=== PATIENT | female | born 1945 | race Caucasian/White ===

== ENCOUNTER → 2018-09-24 | Outpatient (CLI) | payer MEDICARE, OTHER ==
--- NOTE | 2018-09-24 15:52 | XR ---
Bilateral shoulders HISTORY: Bilateral shoulder pain 2 views of each shoulder submitted on a total of 4 images Correlation to prior right shoulder dated 07/11/2011. Bone mineralization, joint spaces and alignment are normal. Small ossific density present in the righ t axilla is indeterminate, could represent lymph node calcification. Lung apices are unremarkable. IMPRESSION: Normal shoulders, additional findings above.
== END | disposition home or self-care (01) ==
LOC: RADXRYALE 13:08
PROVIDERS: ATTEND Family Medicine
DX: M25.511 Pain in right shoulder (principal); M25.512 Pain in left shoulder

== ENCOUNTER → 2018-12-20 | Outpatient (CLI) | payer MEDICARE, OTHER ==
[2018-12-20 14:56] LABS: Anisocytosis Slight; Basophils % (A) 0 %; Eosinophils # (A) 0.2 k/uL (0-0.7); Eosinophils % (A) 2 %; HCT 37.9 % (34.0-46.0); HGB 11.9 gm/dL (11.4-16.0); Hypochromasia Slight; Lymphocytes # (A) 1.6 k/uL (1.0-4.8); Lymphocytes % (A) 23 %; MCH 26.4 pg (25.0-35.0); MCHC 31.5 g/dL (31.0-37.0); Mean Platelet Volume 8.4; Monocytes # (A) 0.4 k/uL (0-1.0); Monocytes % (A) 6 %; Neutrophils # (A) 4.8 k/uL (1.3-7.7); Neutrophils % (A) 66 %; Platelet Count 314 k/uL (150-450); RBC 4.51 m/uL (3.80-5.40); RDW 18.1 % (11.5-15.5); WBC 7.3 k/uL (3.8-10.6)
[2018-12-20 21:01] LABS: Erythrocyte Sedimentation Rate 48 mm/hr (0-20)
== END ==
LOC: LABWHC1 14:08
PROVIDERS: ATTEND Physical Medicine & Rehabilitation
DX: M54.2 Cervicalgia (principal); M47.812 Spondylosis without myelopathy or radiculopathy, cervical region; M50.121 Cervical disc disorder at C4-C5 level with radiculopathy; M50.122 Cervical disc disorder at C5-C6 level with radiculopathy; M50.123 Cervical disc disorder at C6-C7 level with radiculopathy; M25.511 Pain in right shoulder; M25.512 Pain in left shoulder; R20.2 Paresthesia of skin; M35.3 Polymyalgia rheumatica
CPT/HCPCS: 36415; 85025; 85652; 86140

== ENCOUNTER 2019-09-01 21:22 | Inpatient (IN) | payer MEDICARE, OTHER ==
[2019-09-01] MEDS ORDERED: SODIUM CHLORIDE 0.9% 1,000 ML IV STA ×2 (21:55→22:47)
[2019-09-01] MEDS ORDERED: MORPHINE SULFATE 4 MG/ML SYRINGE IV STA (21:55)
--- NOTE | 2019-09-01 22:04 | ED ---
Recheck HPI - General Chief Complaint: Recheck/Abnormal Lab/Rx Stated Complaint: UTI, Confused Time Seen by Provider: 09/01/19 21:43 Source: patient Mode of arrival: wheelchair Limitations: no limitations - History of Present Illness MD Complaint: abnormal lab (UTI), needs IV antibiotics -: days(s) Returns Today for: needs IV antibiotics, persistent/worsening pain related to initial visit, other (fall, weakness, head injury) Symptoms Since Prior Visit: no new symptoms, worsening pain Context: other (weakness) Associated Symptoms: fever, malaise, nausea Treatments Prior to Arrival: other medications, Given Antibiotics on - Related Data Home Medications Medication Instructions Recorded Confirmed Acetaminophen [Tylenol Extra 1,000 mg PO BID PRN 09/01/19 09/01/19 Strength] Acetaminophen/Diphenhydramine 1 tab PO HS 09/01/19 09/01/19 [Tylenol Pm Ex-Strength Caplet] Aspirin EC [Ecotrin Low Dose] 81 mg PO DAILY 09/01/19 09/01/19 Atenolol/Chlorthalidone 1 tab PO DAILY 09/01/19 09/01/19 [Atenolol-Chlorthalidone 100-25] Calcium Carbonate [Tums] 1,000 mg PO DAILY 09/01/19 09/01/19 Celecoxib [CeleBREX] 100 mg PO DAILY 09/01/19 09/01/19 Cholecalciferol [Vitamin D3 (25 1,000 unit PO DAILY 09/01/19 09/01/19 Mcg = 1000 Iu)] Ciprofloxacin HCl [Cipro] 500 mg PO Q12HR 09/01/19 09/01/19 Ferrous Sulfate [Slow Release Iron] 140 mg PO DAILY 09/01/19 09/01/19 Glucosam/Seng-Msm1/C/Garrett/Bosw 1 tab PO DAILY 09/01/19 09/01/19 [Mztvkdzpdge-Bvszxhpdati-MRE Tb] Krill Oil 1,200mg 1 cap PO DAILY 09/01/19 09/01/19 Lactobacillus Acidophilus 1 tab PO DAILY 09/01/19 09/01/19 [Acidophilus] Loratadine [Claritin] 10 mg PO DAILY 09/01/19 09/01/19 Multivitamins, Thera [Multivitamin 1 tab PO DAILY 09/01/19 09/01/19 (formulary)] Nystatin 100,000 Unit/ml Susp 5 ml PO QID 09/01/19 09/01/19 [Mycostatin Oral Susp] Omeprazole 20 mg PO DAILY 09/01/19 09/01/19 Pravastatin Sodium [Pravachol] 20 mg PO HS 09/01/19 09/01/19 Ubidecarenone [Co Q-10] 100 mg PO DAILY 09/01/19 09/01/19 Allergies Allergy/AdvReac Type Severity Reaction Status Date / Time erythromycin base Allergy Unknown Verified 09/01/19 22:02 Penicillins Allergy Unknown Verified 09/01/19 22:02 Review of Systems ROS Statement: Those systems with pertinent positive or pertinent negative responses have been documented in the HPI. ROS Other: All systems not noted in ROS Statement are negative. Past Medical History Past Medical History: Hyperlipidemia, Hypertension History of Any Multi-Drug Resistant Organisms: None Reported Past Surgical History: Tubal Ligation Additional Past Surgical History / Comment(s): carpel tunnel Past Psychological History: No Psychological Hx Reported Smoking Status: Never smoker Past Alcohol Use History: None Reported Past Drug Use History: None Reported General Exam Limitations: no limitations General appearance: alert, in no apparent distress Head exam: Present: atraumatic, normocephalic, normal inspection Eye exam: Present: normal appearance, PERRL, EOMI. Absent: scleral icterus, conjunctival injection, periorbital swelling ENT exam: Present: normal exam, mucous membranes moist Neck exam: Present: normal inspection. Absent: tenderness, meningismus, lymphadenopathy Respiratory exam: Present: normal lung sounds bilaterally. Absent: respiratory distress, wheezes, rales, rhonchi, stridor Cardiovascular Exam: Present: regular rate, normal rhythm, normal heart sounds. Absent: systolic murmur, diastolic murmur, rubs, gallop, clicks GI/Abdominal exam: Present: soft, normal bowel sounds. Absent: distended, tenderness, guarding, rebound, rigid Extremities exam: Present: normal inspection, full ROM, normal capillary refill. Absent: tenderness, pedal edema, joint swelling, calf tenderness Back exam: Present: normal inspection Neurological exam: Present: alert, oriented X3, CN II-XII intact Psychiatric exam: Present: normal affect, normal mood Skin exam: Present: warm, dry, intact, normal color. Absent: rash Course Vital Signs 09/01/19 09/01/19 09/01/19 21:35 22:00 22:18 Temperature 100.0 F H 99.7 F H Pulse Rate 72 70 63 Respiratory 18 19 15 Rate Blood Pressure 79/48 84/46 88/61 O2 Sat by Pulse 96 94 L 95 Oximetry 09/01/19 09/01/19 22:33 23:00 Temperature Pulse Rate 66 Respiratory 20 Rate Blood Pressure 97/57 98/49 O2 Sat by Pulse 96 Oximetry - Reevaluation(s) Reevaluation #1: 09/01/19 23:24 records reviewed Reevaluation #2: 09/01/19 23:24 she feels improved with hydration here in the ER blood pressure still marginally low - Consultations Consultation #1: spoke with Dr. Sage and he MH was agreeable to admit Procedures - Sepsis Sepsis Focused Exam #1 Time Sepsis Criteria Met: 23:00 Sepsis Focused Exam Date: 09/02/19 Sepsis Focused Exam Time: 02:00 Sepsis Focused Exam Complete: Yes Vital Signs & RN Notes Reviewed: Yes Capillary Refill: < 2 Seconds: Fingers, Toes Peripheral Pulses: Normal: Radial (R), Radial (L), Posterior Tibialis (R), Posterior Tibialis (L), Dorsalis Pedis (R), Dorsalis Pedis (L) Skin Color: Normal for Patient Respiratory Exam: normal lung sounds Cardiovascular Exam: regular rate, normal rhythm Medical Decision Making - Medical Decision Making 73 for female in the ER for evaluation of possible pericarditis positive severe sepsis, patient will be admitted for antibiotics patient given 30 mL's per kilogram s. Patient will be admitted for continued hydration and IV antibiotics - Lab Data Result diagrams: 09/01/19 22:17 09/01/19 22:17 Lab Results 09/01/19 09/01/19 09/01/19 Range/Units 22:17 22:17 22:17 WBC 21.3 H (3.8-10.6) k/uL RBC 3.80 (3.80-5.40) m/uL Hgb 11.4 (11.4-16.0) gm/dL Hct 32.7 L (34.0-46.0) % MCV 85.8 (80.0-100.0) fL MCH 30.0 (25.0-35.0) pg MCHC 35.0 (31.0-37.0) g/dL RDW 12.9 (11.5-15.5) % Plt Count 216 (150-450) k/uL Neutrophils % 92 % Lymphocytes % 2 % Monocytes % 4 % Eosinophils % 0 % Basophils % 0 % Neutrophils # 19.6 H (1.3-7.7) k/uL Lymphocytes # 0.5 L (1.0-4.8) k/uL Monocytes # 0.8 (0-1.0) k/uL Eosinophils # 0.1 (0-0.7) k/uL Basophils # 0.0 (0-0.2) k/uL Sodium 126 L (137-145) mmol/L Potassium 2.6 L* (3.5-5.1) mmol/L Chloride 90 L (98-107) mmol/L Carbon Dioxide 22 (22-30) mmol/L Anion Gap 14 mmol/L BUN 102 H* (7-17) mg/dL Creatinine 3.48 H (0.52-1.04) mg/dL Est GFR (CKD-EPI)AfAm 14 (>60 ml/min/1.73 sqM) Est GFR (CKD-EPI)NonAf 12 (>60 ml/min/1.73 sqM) Glucose 170 H (74-99) mg/dL Calcium 7.8 L (8.4-10.2) mg/dL Total Bilirubin 1.3 (0.2-1.3) mg/dL AST 61 H (14-36) U/L ALT 35 H (4-34) U/L Alkaline Phosphatase 154 H (38-126) U/L Creatine Kinase 96 (30-135) U/L Total Protein 5.5 L (6.3-8.2) g/dL Albumin 2.8 L (3.5-5.0) g/dL Amylase 34 (30-110) U/L Lipase 110 (23-300) U/L Urine Color Yellow Urine Appearance Cloudy H (Clear) Urine pH 5.5 (5.0-8.0) Ur Specific [place] 1.010 (1.001-1.035) Urine Protein 2+ H (Negative) Urine Glucose (UA) Negative (Negative) Urine Ketones Negative (Negative) Urine Blood Small H (Negative) Urine Nitrite Negative (Negative) Urine Bilirubin Negative (Negative) Urine Urobilinogen <2.0 (<2.0) mg/dL Ur Leukocyte Esterase Large H (Negative) Urine RBC 7 H (0-5) /hpf Urine WBC >182 H (0-5) /hpf Urine WBC Clumps Many H (None) /hpf Ur Squamous Epith Cells 6 H (0-4) /hpf Urine Bacteria Occasional H (None) /hpf Urine Mucus Rare H (None) /hpf - Radiology Data Radiology results: report reviewed (CT abd pelvis positive for bilateral pyelo- ), image reviewed Critical Care Time Critical Care Time: Yes Total Critical Care Time: 31 Disposition Clinical Impression: Pyelonephritis, Sepsis Disposition: ADMITTED IP TO THIS HOSP Condition: Serious Is patient prescribed a controlled substance at d/c from ED?: No Referrals: Philip Richardson DO [Primary Care Provider] - 1-2 days
[2019-09-01 22:31] LABS: Basophils % (A) 0 %; Eosinophils # (A) 0.1 k/uL (0-0.7); Eosinophils % (A) 0 %; HCT 32.7 % (34.0-46.0); HGB 11.4 gm/dL (11.4-16.0); Lymphocytes # (A) 0.5 k/uL (1.0-4.8); Lymphocytes % (A) 2 %; MCV 85.8 fL (80.0-100.0); Mean Platelet Volume 10.7; Monocytes # (A) 0.8 k/uL (0-1.0); Monocytes % (A) 4 %; Neutrophils # (A) 19.6 k/uL (1.3-7.7); Neutrophils % (A) 92 %; Platelet Count 216 k/uL (150-450); RDW 12.9 % (11.5-15.5); WBC 21.3 k/uL (3.8-10.6)
[2019-09-01 22:35] LABS: Appearance,Urine Cloudy (Clear); Bacteria,Urine Occasional /hpf; Bilirubin,Urine Negative (Negative); Blood,Urine Small (Negative); Color,Urine Yellow; Glucose,Urine (UA) Negative (Negative); Ketones,Urine Negative (Negative); Leukocyte Esterase,Urine Large (Negative); Mucus,Urine Rare /hpf; Nitrite,Urine Negative (Negative); PH, Urine 5.5 (5.0-8.0); Protein,Urine 2+ (Negative); RBC,Urine 7 /hpf (0-5); Squamous Epithelial Cell,Urine 6 /hpf (0-4); Urobilinogen,Urine <2.0 mg/dL (<2.0); WBC,Urine >182 /hpf (0-5)
[2019-09-01 22:39] LABS: Albumin 2.8 g/dL (3.5-5.0); Calcium 7.8 mg/dL (8.4-10.2); Total Bilirubin 1.3 mg/dL (0.2-1.3); Total Protein 5.5 g/dL (6.3-8.2)
[2019-09-01 22:46] LABS: Potassium 2.6 mmol/L (3.5-5.1)
[2019-09-01] MEDS ORDERED: POTASSIUM BICARBONATE/CIT AC 20 MEQ TABLET.EFF PO ONE (22:48)
--- NOTE | 2019-09-01 23:01 | CT ---
EXAMINATION TYPE: CT brain miaine wo con DATE OF EXAM: 09/01/2019 COMPARISON: None HISTORY: confused CT DLP: 1008 mGycm Automated exposure control for dose reduction was used. Ventricles have normal size. There is no mass effect nor midline shift. There is no sign of intracran ial hemorrhage. The calvarium is intact. Cervical vertebra have normal alignment. Disc spaces are fairly normal for age. There is spurring of the endplates in the lower cervical spine. Facet joints are intact. Skull base is intact. There is mi ld hypertrophic facet arthropathy. There is no evidence of a fracture. IMPRESSION: Mild spondylotic changes. No fracture seen. Negative CT scan of the brain.
--- NOTE | 2019-09-01 23:09 | CT ---
EXAMINATION TYPE: CT abdomen pelvis wo con DATE OF EXAM: 09/01/2019 COMPARISON: None HISTORY: UTI CT DLP: 331 mGycm Automated exposure control for dose reduction was used. Exam performed with no contrast. There is minimal subsegmental atelectasis at the lung bases. Heart is probably enlarged. There is no pericardial effusion. There is no pleural effusion. Liver and spleen appear normal. Gallbladder appears normal. Bile ducts are not dilated. Stomach is in tact. There is no evidence of pancreatic mass. There is no adrenal mass. Kidneys appear large. There is 2.5 cm cortical cyst lower pole left kidney. I see no definite renal o bstruction. There is some mild fat stranding at the left renal hilum. There is mild bilateral fat str anding in the perirenal fat. There is no retroperitoneal adenopathy. Bladder distends smoothly. There is no inguinal hernia. There is no free fluid in the pelvis. There is 1.5 cm calcified uterine fibroid. There is no mesenteric edema. There is no ascites or free air. There is no sign of a bowel obstructio n. Appendix is not definitely seen. There is no sign of thickened appendix. There are some spondyloti c changes in the lumbar spine. There is narrowing of L2-3 L3-4 disc spaces. There is no compression f racture. The bony pelvis is intact. IMPRESSION: There is some mild atelectasis at the lung bases. there appears to be bilateral renal swelling and mi ld edema that could relate to bilateral acute pyelonephritis. No evidence of renal or ureteral calcul us.
[2019-09-02] MEDS: SODIUM CHLORIDE 0.9% 1,000 ML IV SCH ×4 (00:58→23:44)
[2019-09-02 08:44] LABS: Basophils # (A) 0.1 k/uL (0-0.2); Basophils % (A) 0 %; Eosinophils # (A) 0.1 k/uL (0-0.7); Eosinophils % (A) 0 %; HCT 36.1 % (34.0-46.0); HGB 12.1 gm/dL (11.4-16.0); Lymphocytes # (A) 0.4 k/uL (1.0-4.8); Lymphocytes % (A) 2 %; MCH 29.6 pg (25.0-35.0); MCHC 33.4 g/dL (31.0-37.0); MCV 88.6 fL (80.0-100.0); Mean Platelet Volume 10.1; Monocytes # (A) 0.8 k/uL (0-1.0); Monocytes % (A) 3 %; Neutrophils # (A) 22.1 k/uL (1.3-7.7); Neutrophils % (A) 93 %; Platelet Count 232 k/uL (150-450); RBC 4.08 m/uL (3.80-5.40); RDW 12.7 % (11.5-15.5); WBC 23.8 k/uL (3.8-10.6)
[2019-09-02 08:53] LABS: Albumin 2.6 g/dL (3.5-5.0); Potassium 2.9 mmol/L (3.5-5.1); Total Protein 5.4 g/dL (6.3-8.2)
[2019-09-02] MEDS ORDERED: ENOXAPARIN 40 MG/0.4 ML SYRINGE SQ SCH (09:00)
[2019-09-02] MEDS ORDERED: Potassium Replacement Protocol 1 EACH MISC MISCELLANE PRN (09:05)
[2019-09-02] MEDS: POTASSIUM CHLORIDE 20 MEQ in WATER FOR INJECTION 1 100ML.BAG IVPB SCH ×3 (09:44→18:16)
[2019-09-02] MEDS: POTASSIUM CHLORIDE ER 20 MEQ TAB.ER PO SCH ×3 (09:44→18:14)
--- NOTE | 2019-09-02 15:00 | US ---
EXAMINATION TYPE: US renals and bladder DATE OF EXAM: 09/02/2019 COMPARISON: CT CLINICAL HISTORY: pyelonephritis with renal failure. UTI EXAM MEASUREMENTS: Right Kidney: 11.3 x 7.3 x 6.7 cm Left Kidney: 11.6 x 6.5 x 6.2 cm Post Void Residual Volume: 222.2 mL Right Kidney: thickened renal cortex suggests pyelonephritis Left Kidney: thickened renal cortex suggests pyelonephritis; inferior pole renal cyst cluster = 2.7 x 2.1 x 2.5cm. Bladder: post void assessment shows thickened bladder wall at 4.7mm Bilateral Jets seen: yes, small ureteral jets are seen bilaterally Normal Post Void Residual: abnormal . No nephrolithiasis is seen. The urinary bladder is anechoic. Bilateral ureteral jets are seen. IMPRESSION: Bilateral enlarged kidneys. No hydronephrosis. There is a 2.5 cm cortical cyst lower pole left kidney . Large post void residual volume. There are bilateral ureteral jets and no evidence of ureteral obst ruction. No solid renal mass.
--- NOTE | 2019-09-02 16:28 | P.HPIM ---
History of Present Illness Patient is a 73-year-old the female is admitted for urinary tract infection patient came in with complaints of fever and chills started Sunday patient had flulike symptoms about a week ago. Patient to had urinary frequency denied any dysuria. Patient didn't have fever here does have leukocytosis does have significantly abnormal urine no other source of infection was found. Patient had a CAT scan of the abdomen which is suspicious for bilateral hydronephrosis but this was not seen on the ultrasound. As the nursing staff to obtain a bladder scan and there is only 250 mL of urine in the bladder. I do not see any urinary retention. Patient the serum creatinine is 3.5 patient is on some medications that can affect the kidney patient is being and creatinine ratio is consistent with prerenal azotemia patient is on diuretic as well as Celebrex which can affect the kidney. Probably will be consulted patient is on IV fluids which will be continued will recheck the kidney function tomorrow patient is hyponatremic severely hyponatremic with hypovolemic hyponatremia. Initially wanted to consult urology but that since ultrasound didn't show anything may not need urological consultation will consult nephrology. Patient was started on Rocephin which will be continued. Patient had previous episodes of UTI but doesn't have UTIs that often. Patient at this point of time is feeling better with but still below her baseline patient had mildly elevated liver enzymes which improved now. Had fevers at home but not here. Patient actually came in with syncopal episode found to have very low blood pressure. Review of Systems REVIEW OF SYSTEMS: CONSTITUTIONAL: As mentioned in HPI. HEENT: No recent visual problems or hearing problems. Denied any sore throat. CARDIOVASCULAR: No chest pain, orthopnea, PND, no palpitations, no syncope. PULMONARY: No shortness of breath, no cough, no hemoptysis. GASTROINTESTINAL: No diarrhea, no nausea, no vomiting, no abdominal pain. NEUROLOGICAL: No headaches, no weakness, no numbness. HEMATOLOGICAL: Denies any bleeding or petechiae. GENITOURINARY: Denies any burning micturition, frequency, or urgency. MUSCULOSKELETAL/RHEUMATOLOGICAL: Denies any joint pain, swelling, or any muscle pain. ENDOCRINE: Denies any polyuria or polydipsia. The rest of the 14-point review of systems is negative. Past Medical History Past Medical History: Hyperlipidemia, Hypertension History of Any Multi-Drug Resistant Organisms: None Reported Past Surgical History: Tubal Ligation Additional Past Surgical History / Comment(s): carpel tunnel Past Psychological History: No Psychological Hx Reported Smoking Status: Never smoker Past Alcohol Use History: None Reported Past Drug Use History: None Reported Medications and Allergies Home Medications Medication Instructions Recorded Confirmed Type Acetaminophen [Tylenol Extra 1,000 mg PO BID PRN 09/01/19 09/01/19 History Strength] Acetaminophen/Diphenhydramine 1 tab PO HS 09/01/19 09/01/19 History [Tylenol Pm Ex-Strength Caplet] Aspirin EC [Ecotrin Low Dose] 81 mg PO DAILY 09/01/19 09/01/19 History Atenolol/Chlorthalidone 1 tab PO DAILY 09/01/19 09/01/19 History [Atenolol-Chlorthalidone 100-25] Calcium Carbonate [Tums] 1,000 mg PO DAILY 09/01/19 09/01/19 History Celecoxib [CeleBREX] 100 mg PO DAILY 09/01/19 09/01/19 History Cholecalciferol [Vitamin D3 (25 1,000 unit PO DAILY 09/01/19 09/01/19 History Mcg = 1000 Iu)] Ciprofloxacin HCl [Cipro] 500 mg PO Q12HR 09/01/19 09/01/19 History Ferrous Sulfate [Slow Release Iron] 140 mg PO DAILY 09/01/19 09/01/19 History Glucosam/Seng-Msm1/C/Garrett/Bosw 1 tab PO DAILY 09/01/19 09/01/19 History [Zktztyfoemk-Corjnjwsuqn-KDE Tb] Krill Oil 1,200mg 1 cap PO DAILY 09/01/19 09/01/19 History Lactobacillus Acidophilus 1 tab PO DAILY 09/01/19 09/01/19 History [Acidophilus] Loratadine [Claritin] 10 mg PO DAILY 09/01/19 09/01/19 History Multivitamins, Thera [Multivitamin 1 tab PO DAILY 09/01/19 09/01/19 History (formulary)] Nystatin 100,000 Unit/ml Susp 5 ml PO QID 09/01/19 09/01/19 History [Mycostatin Oral Susp] Omeprazole 20 mg PO DAILY 09/01/19 09/01/19 History Pravastatin Sodium [Pravachol] 20 mg PO HS 09/01/19 09/01/19 History Ubidecarenone [Co Q-10] 100 mg PO DAILY 09/01/19 09/01/19 History Allergies Allergy/AdvReac Type Severity Reaction Status Date / Time erythromycin base Allergy Unknown Verified 09/01/19 22:02 Penicillins Allergy Unknown Verified 09/01/19 22:02 Physical Exam Vitals: Vital Signs Temp Pulse Pulse Resp BP BP Pulse Ox 09/02/19 15:48 16 09/02/19 14:05 97.9 F 71 18 124/55 95 09/02/19 08:00 18 09/02/19 05:00 97.3 F L 69 18 116/72 95 09/02/19 02:07 97.6 F 66 20 97/59 94 L 09/02/19 00:24 97.8 F 69 18 106/54 98 09/01/19 23:00 66 20 98/49 96 09/01/19 22:33 97/57 09/01/19 22:18 63 15 88/61 95 09/01/19 22:00 99.7 F H 70 19 84/46 94 L 09/01/19 21:35 100.0 F H 72 18 79/48 96 Intake and Output 09/02/19 09/02/19 09/02/19 06:59 14:59 22:59 Intake Total 500 800 Balance 500 800 Intake: Oral 500 800 Other: # Voids 3 4 # Bowel Movements 2 Weight 68.039 kg PHYSICAL EXAMINATION: GENERAL: The patient is alert and oriented x3, not in any acute distress. Well developed, well nourished. HEENT: Pupils are round and equally reacting to light. EOMI. No scleral icterus. No conjunctival pallor. Normocephalic, atraumatic. No pharyngeal erythema. No thyromegaly. CARDIOVASCULAR: S1 and S2 present. No murmurs, rubs, or gallops. PULMONARY: Chest is clear to auscultation, no wheezing or crackles. ABDOMEN: Soft, nontender, nondistended, normoactive bowel sounds. No palpable organomegaly. MUSCULOSKELETAL: No joint swelling or deformity. EXTREMITIES: No cyanosis, clubbing, or pedal edema. NEUROLOGICAL: Gross neurological examination did not reveal any focal deficits. SKIN: No rashes. Results CBC & Chem 7: 09/02/19 08:30 09/02/19 08:30 Labs: Abnormal Lab Results - Last 24 Hours (Table) 09/01/19 09/01/19 09/01/19 Range/Units 22:17 22:17 22:17 WBC 21.3 H (3.8-10.6) k/uL Hct 32.7 L (34.0-46.0) % Neutrophils # 19.6 H (1.3-7.7) k/uL Lymphocytes # 0.5 L (1.0-4.8) k/uL Sodium 126 L (137-145) mmol/L Potassium 2.6 L* (3.5-5.1) mmol/L Chloride 90 L (98-107) mmol/L BUN 102 H* (7-17) mg/dL Creatinine 3.48 H (0.52-1.04) mg/dL Glucose 170 H (74-99) mg/dL Calcium 7.8 L (8.4-10.2) mg/dL AST 61 H (14-36) U/L ALT 35 H (4-34) U/L Alkaline Phosphatase 154 H (38-126) U/L Total Protein 5.5 L (6.3-8.2) g/dL Albumin 2.8 L (3.5-5.0) g/dL Urine Appearance Cloudy H (Clear) Urine Protein 2+ H (Negative) Urine Blood Small H (Negative) Ur Leukocyte Esterase Large H (Negative) Urine RBC 7 H (0-5) /hpf Urine WBC >182 H (0-5) /hpf Urine WBC Clumps Many H (None) /hpf Ur Squamous Epith Cells 6 H (0-4) /hpf Urine Bacteria Occasional H (None) /hpf Urine Mucus Rare H (None) /hpf 09/02/19 09/02/19 Range/Units 08:30 08:30 WBC 23.8 H (3.8-10.6) k/uL Hct (34.0-46.0) % Neutrophils # 22.1 H (1.3-7.7) k/uL Lymphocytes # 0.4 L (1.0-4.8) k/uL Sodium 133 L (137-145) mmol/L Potassium 2.9 L (3.5-5.1) mmol/L Chloride 97 L (98-107) mmol/L BUN 95 H (7-17) mg/dL Creatinine 3.27 H (0.52-1.04) mg/dL Glucose (74-99) mg/dL Calcium 7.0 L (8.4-10.2) mg/dL AST 42 H (14-36) U/L ALT (4-34) U/L Alkaline Phosphatase 133 H (38-126) U/L Total Protein 5.4 L (6.3-8.2) g/dL Albumin 2.6 L (3.5-5.0) g/dL Urine Appearance (Clear) Urine Protein (Negative) Urine Blood (Negative) Ur Leukocyte Esterase (Negative) Urine RBC (0-5) /hpf Urine WBC (0-5) /hpf Urine WBC Clumps (None) /hpf Ur Squamous Epith Cells (0-4) /hpf Urine Bacteria (None) /hpf Urine Mucus (None) /hpf Microbiology - Last 24 Hours (Table) 09/01/19 22:17 Urine Culture - Preliminary Urine,Clean Catch Thrombosis Risk Factor Assmnt - Choose All That Apply Any of the Below Risk Factors Present?: Yes Each Factor Represents 1 point: Obesity (BMI >25) Other Risk Factors: Yes Each Risk Factor Represents 2 Points: Age 61-74 years Thrombosis Risk Factor Assessment Total Risk Factor Score: 3 Thrombosis Risk Factor Assessment Level: Moderate Risk Assessment and Plan Plan: -Syncope secondary to hypotension which is again related to either severe hypovolemia and may be a competent of sepsis 2. Patient will be continued on IV fluids -possible urinary tract infection urine cultures will be obtained patient will be continued on Rocephin. Patient was told patient that she has bad urinary tract infection was already started on Cipro as an outpatient. -Acute renal failure secondary to severe intravascular patient from chlorthalidone and Cerebyx may be contributory to it as well, this will be held. -Hypertension patient is presently hypotensive hold off on atenolol and chlorthalidone -Gastroesophageal reflux disease -Hyperlipidemia -DVT prophylaxis with subcutaneous heparin and oxygen will be discontinued because of poor renal function
[2019-09-02] MEDS: NYSTATIN 100,000 UNIT/ML SUSP 500,000 UNIT/5 ML CUP PO SCH ×2 (18:14→21:06)
[2019-09-02] MEDS ORDERED: BENZOCAINE/MENTHOL LOZENG 1 EACH LOZENGE MUCOUS MEM PRN (20:50)
[2019-09-02] MEDS: PRAVASTATIN SODIUM 20 MG TAB PO SCH (21:06)
[2019-09-02 21:50] LABS: Magnesium 1.5 mg/dL (1.6-2.3); Potassium 4.2 mmol/L (3.5-5.1)
[2019-09-03] MEDS: SODIUM CHLORIDE 0.9% 1,000 ML IV SCH ×3 (05:33→23:16)
[2019-09-03] MEDS: ASPIRIN 81 MG PO SCH (07:58)
[2019-09-03] MEDS: HEPARIN SODIUM,PORCINE 5,000 UNIT/ML 1 ML VIAL SQ SCH ×3 (07:58→23:15)
[2019-09-03] MEDS: PANTOPRAZOLE 40 MG TABLET PO SCH (07:58)
[2019-09-03] MEDS: CHOLECALCIFEROL 1,000 UNIT TAB PO SCH (07:59)
[2019-09-03] MEDS: FERROUS SULFATE 325 MG TAB PO SCH (07:59)
[2019-09-03] MEDS ORDERED: ENOXAPARIN 30 MG/0.3 ML SYRINGE SQ SCH (09:00)
[2019-09-03 09:46] LABS: Calcium 7.7 mg/dL (8.4-10.2); Potassium 3.9 mmol/L (3.5-5.1)
[2019-09-03] MEDS: NYSTATIN 100,000 UNIT/ML SUSP 500,000 UNIT/5 ML CUP PO SCH ×4 (12:28→23:15)
--- NOTE | 2019-09-03 12:46 | P.GSCN ---
History of Present Illness Consult date: 09/03/19 Reason for Consult: Urinary obstruction with impaired renal function History of present illness: The patient is a 73-year-old female admitted through the emergency room on 09/01 for evaluation of acute renal failure and possible sepsis. She says that she was seen by Dr. Richardson on 08/31 and at that time was felt to have a urinary tract infection. She says she was given an IM antibiotic injection and a prescription for Cipro. She does not recall having any fever or dysuria at that time. Later that evening she fell and was taken to the emergency room for further evaluation. Her temperature was 100.0. White blood count was 21,300. BUN/creatinine were 102/3.48. Lactic acid was 1.3. Sodium was 126, potassium was 2.6 and bicarb was 22. She was started on antibiotics and IV fluids. BUN/creatinine yesterday morning were improved at 95/3.27. BUN/creatinine today are 81/2.84. The patient had a computed tomography scan of the abdomen and pelvis without IV contrast at the time of admission which showed some slight swelling of the kidneys but no definite hydronephrosis. There was no evidence of renal or ureteral calculus. Renal ultrasound was performed yesterday due to the persistent abnormal renal function and this also showed no evidence of hydronephrosis. Urine culture at the time of admission shows probable perineal contamination. The patient has no history of urolithiasis. She says that she recalls having a urinary tract infection approximately 6 months ago. She says she usually voids every 2-3 hours during the day and 3 times at night. She denied any nausea or vomiting prior to admission. Review of Systems - Constitutional Reports lethargy - Cardiovascular Denies chest pain, Denies shortness of breath - Respiratory Denies cough - Gastrointestinal Denies abdominal pain, Denies diarrhea Past Medical History Past Medical History: Hyperlipidemia, Hypertension History of Any Multi-Drug Resistant Organisms: None Reported Past Surgical History: Tubal Ligation Additional Past Surgical History / Comment(s): carpel tunnel, radiofrequency ablation of nerves- low back Past Psychological History: No Psychological Hx Reported Smoking Status: Never smoker Past Alcohol Use History: None Reported Past Drug Use History: None Reported Medications and Allergies Home Medications Medication Instructions Recorded Confirmed Type Acetaminophen [Tylenol Extra 1,000 mg PO BID PRN 09/01/19 09/01/19 History Strength] Acetaminophen/Diphenhydramine 1 tab PO HS 09/01/19 09/01/19 History [Tylenol Pm Ex-Strength Caplet] Aspirin EC [Ecotrin Low Dose] 81 mg PO DAILY 09/01/19 09/01/19 History Atenolol/Chlorthalidone 1 tab PO DAILY 09/01/19 09/01/19 History [Atenolol-Chlorthalidone 100-25] Calcium Carbonate [Tums] 1,000 mg PO DAILY 09/01/19 09/01/19 History Celecoxib [CeleBREX] 100 mg PO DAILY 09/01/19 09/01/19 History Cholecalciferol [Vitamin D3 (25 1,000 unit PO DAILY 09/01/19 09/01/19 History Mcg = 1000 Iu)] Ciprofloxacin HCl [Cipro] 500 mg PO Q12HR 09/01/19 09/01/19 History Ferrous Sulfate [Slow Release Iron] 140 mg PO DAILY 09/01/19 09/01/19 History Glucosam/Seng-Msm1/C/Garrett/Bosw 1 tab PO DAILY 09/01/19 09/01/19 History [Yzzhaqblsmz-Jlqftffgrjx-YIG Tb] Krill Oil 1,200mg 1 cap PO DAILY 09/01/19 09/01/19 History Lactobacillus Acidophilus 1 tab PO DAILY 09/01/19 09/01/19 History [Acidophilus] Loratadine [Claritin] 10 mg PO DAILY 09/01/19 09/01/19 History Multivitamins, Thera [Multivitamin 1 tab PO DAILY 09/01/19 09/01/19 History (formulary)] Nystatin 100,000 Unit/ml Susp 5 ml PO QID 09/01/19 09/01/19 History [Mycostatin Oral Susp] Omeprazole 20 mg PO DAILY 09/01/19 09/01/19 History Pravastatin Sodium [Pravachol] 20 mg PO HS 09/01/19 09/01/19 History Ubidecarenone [Co Q-10] 100 mg PO DAILY 09/01/19 09/01/19 History Allergies Allergy/AdvReac Type Severity Reaction Status Date / Time erythromycin base Allergy Unknown Verified 09/01/19 22:02 Penicillins Allergy Unknown Verified 09/01/19 22:02 Surgical - Exam Vital Signs Temp Pulse Resp BP Pulse Ox 100.0 F H 72 18 79/48 96 09/01/19 21:35 09/01/19 21:35 09/01/19 21:35 09/01/19 21:35 09/01/19 21:35 - General well developed, well nourished, no distress - ENT no hearing loss - Neck no masses, no lymphadectomy - Respiratory normal respiratory effort - Abdomen Abdomen: soft, non tender, no organomegaly Results - Labs 09/02/19 08:30 09/03/19 09:10 Abnormal Lab Results - Last 24 Hours (Table) 09/02/19 09/03/19 Range/Units 21:25 09:10 Chloride 108 H (98-107) mmol/L Carbon Dioxide 18 L (22-30) mmol/L BUN 81 H (7-17) mg/dL Creatinine 2.84 H (0.52-1.04) mg/dL Glucose 172 H (74-99) mg/dL Calcium 7.7 L (8.4-10.2) mg/dL Magnesium 1.5 L (1.6-2.3) mg/dL Microbiology - Last 24 Hours (Table) 09/01/19 22:17 Urine Culture - Final Urine,Clean Catch 09/01/19 23:42 Blood Culture - Preliminary Blood No Growth after 24 hours Diabetes panel 09/02/19 09/03/19 Range/Units 21:25 09:10 Sodium 138 (137-145) mmol/L Potassium 4.2 3.9 (3.5-5.1) mmol/L Chloride 108 H (98-107) mmol/L Carbon Dioxide 18 L (22-30) mmol/L BUN 81 H (7-17) mg/dL Creatinine 2.84 H (0.52-1.04) mg/dL Glucose 172 H (74-99) mg/dL Calcium 7.7 L (8.4-10.2) mg/dL Calcium panel 09/03/19 Range/Units 09:10 Calcium 7.7 L (8.4-10.2) mg/dL Pituitary panel 09/02/19 09/03/19 Range/Units 21:25 09:10 Sodium 138 (137-145) mmol/L Potassium 4.2 3.9 (3.5-5.1) mmol/L Chloride 108 H (98-107) mmol/L Carbon Dioxide 18 L (22-30) mmol/L BUN 81 H (7-17) mg/dL Creatinine 2.84 H (0.52-1.04) mg/dL Glucose 172 H (74-99) mg/dL Calcium 7.7 L (8.4-10.2) mg/dL Adrenal panel 09/02/19 09/03/19 Range/Units 21:25 09:10 Sodium 138 (137-145) mmol/L Potassium 4.2 3.9 (3.5-5.1) mmol/L Chloride 108 H (98-107) mmol/L Carbon Dioxide 18 L (22-30) mmol/L BUN 81 H (7-17) mg/dL Creatinine 2.84 H (0.52-1.04) mg/dL Glucose 172 H (74-99) mg/dL Calcium 7.7 L (8.4-10.2) mg/dL Assessment and Plan (1) Acute renal failure Narrative/Plan: The source of the patient's acute renal failure is not clear. She does not appear to have an obstructive component to this. Urine culture at the time of admission showed perineal contamination however the patient had been on antibiotics earlier in the day. It's unclear whether a culture was obtained prior to beginning the antibiotics. The marked elevation of BUN compared with creatinine is consistent with a prerenal cause of the acute renal failure however the patient denied any vomiting or diarrhea. Unfortunately her recall of events over the last few days is not perfect. At least at this time I do not feel that further urologic evaluation is necessary. Current Visit: Yes Status: Acute Code(s): N17.9 - ACUTE KIDNEY FAILURE, UNSPECIFIED SNOMED Code(s): 53089852
--- NOTE | 2019-09-03 14:49 | P.PN ---
Subjective 73-year-old female was admitted secondary to urinary tract infection patient has significant improvement in clinical a. Although urine sample appears to be contaminated. Patient's serum creatinine improved, continue with the 75 mL of normal saline per hour. Patient was evaluated by urology and patient does not appear to have any obstructive etiology. Patient appears to have prerenal azotemia. Constitutional: Denied any fatigue denied any fever. Cardio vascular: denied any chest pain, palpitations Gastrointestinal denied any nausea vomiting Pulmonary: Denied any shortness of breath cough Neurologic denied any new focal deficits All inpatient medications were reviewed and appropriate changes in these medications as dictated in the interval history and assessment and plan. Objective - Vital Signs Vital signs: Vital Signs Temp 97.5 F L 09/03/19 10:06 Pulse 67 09/03/19 10:06 Resp 16 09/03/19 10:06 BP 107/69 09/03/19 10:06 Pulse Ox 99 09/03/19 10:06 Intake & Output 09/02/19 09/03/19 09/03/19 18:59 06:59 18:59 Intake Total 800 4108 Output Total 3 Balance 800 4105 Intake: Intake, IV Titration 3708 Amount Potassium Chloride 20 meq 50 In Water For Injection 1 100ml.bag @ 50 mls/hr IVPB Q2H ULISES Rx#: [id number] Sodium Chloride 0.9% 1, 1560 000 ml @ 130 mls/hr IV . Q7H42M ULISES Rx#:[id number] Sodium Chloride 0.9% 1, 999 000 ml @ 999 mls/hr IV . Q1H1M STA Rx#:[id number] Sodium Chloride 0.9% 1, 999 000 ml @ 999 mls/hr IV . Q1H1M STA Rx#:[id number] cefTRIAXone 1 gm In 100 Sodium Chloride 0.9% 50 ml @ 100 mls/hr IVPB 0500 ,1700 ULISES Rx#:[id number] Oral 800 400 Output: Urine/Stool Mix 3 Other: # Voids 4 15 # Bowel Movements 2 - Exam PHYSICAL EXAMINATION: GENERAL: The patient is alert and oriented x3, not in any acute distress. Well developed, well nourished. HEENT: Pupils are round and equally reacting to light. EOMI. No scleral icterus. No conjunctival pallor. Normocephalic, atraumatic. No pharyngeal erythema. No thyromegaly. CARDIOVASCULAR: S1 and S2 present. No murmurs, rubs, or gallops. PULMONARY: Chest is clear to auscultation, no wheezing or crackles. ABDOMEN: Soft, nontender, nondistended, normoactive bowel sounds. No palpable organomegaly. MUSCULOSKELETAL: No joint swelling or deformity. EXTREMITIES: No cyanosis, clubbing, or pedal edema. NEUROLOGICAL: Gross neurological examination did not reveal any focal deficits. SKIN: No rashes. - Labs CBC & Chem 7: 09/02/19 08:30 09/03/19 09:10 Labs: Abnormal Lab Results - Last 24 Hours (Table) 09/02/19 09/03/19 Range/Units 21:25 09:10 Chloride 108 H (98-107) mmol/L Carbon Dioxide 18 L (22-30) mmol/L BUN 81 H (7-17) mg/dL Creatinine 2.84 H (0.52-1.04) mg/dL Glucose 172 H (74-99) mg/dL Calcium 7.7 L (8.4-10.2) mg/dL Magnesium 1.5 L (1.6-2.3) mg/dL Microbiology - Last 24 Hours (Table) 09/01/19 22:17 Urine Culture - Final Urine,Clean Catch 09/01/19 23:42 Blood Culture - Preliminary Blood No Growth after 24 hours Assessment and Plan Plan: -Syncope secondary to hypotension which is again related to either severe hypovolemia and may be a competent of sepsis 2. Patient will be continued on IV fluids -possible urinary tract infection urine cultures cultures were contaminated, we'll discharge her on empiric antibiotic tomorrow. Continue with 75 mL of normal saline -Acute renal failure secondary to severe intravascular patient from chlorthalidone and Cerebyx may be contributory to it as well, this will be held. Cardiac IV fluids recheck kidney function tomorrow -Hypertension patient is presently hypotensive hold off on atenolol and chlorthalidone -Gastroesophageal reflux disease -Hyperlipidemia -DVT prophylaxis with subcutaneous heparin and oxygen will be discontinued because of poor renal function
--- NOTE | 2019-09-03 15:15 | CONS ---
CONSULTATION The patient is seen for renal failure. HISTORY OF PRESENT ILLNESS: The patient is a 73-year-old female who initially presented to her primary care physician, Dr. Richardson, on Sunday with flu-like symptoms going on for about a week with discomfort while urination. No history of fever. Patient had a urine culture drawn and she was given a dose of Rocephin and started on Cipro. The patient continued to take the Cipro, but she continued to feel weak and therefore came into the hospital. Patient denied any prior history of kidney diseases. Her serum creatinine was 3.48 on admission with a potassium of 2.6. Previous creatinine was 0.6 on 11/01/2018. The patient denies any diarrhea, nausea, vomiting, although she has had low oral intake. The patient is maintained on IV fluids. Creatinine is down to 2.8 now. Potassium has been replaced. Overall, she states she is feeling better. Urine culture currently shows no growth. However, we do not have the urine culture from outpatient available at this time. The patient had been on Celebrex prior to admission. Her CT of the abdomen done on admission shows bilateral renal swelling, mild edema and there was concern for bilateral hydronephrosis. Urology was consulted and at this time they do not believe there is any obstructive uropathy. PAST MEDICAL HISTORY: Hypertension, previous history of UTI, hyperlipidemia. PAST SURGICAL HISTORY: Tubal ligation. SOCIAL HISTORY: Negative for smoking, drug abuse or alcohol abuse. MEDICATIONS: Medications at home included atenolol, chlorthalidone, Tums, Celebrex, vitamin D, Cipro, acidophilus, Claritin, multivitamins, Pravachol, omeprazole. ALLERGIES: PENICILLIN AND ERYTHROMYCIN. REVIEW OF SYSTEMS: As per HPI. Other systems negative. EXAMINATION: Patient is comfortable, awake, alert, oriented x3, not in any acute distress. Blood pressure is 107/69, heart rate 67 per minute, she is afebrile. Examination of the heart S1, S2. Examination of the lungs, bilateral breath sounds are heard. Abdomen is soft, non-tender. Examination of lower extremities shows no significant edema. 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 LABS: Show sodium 138, potassium 3.9, chloride 108, CO2 is 18, BUN 81, creatinine 2.84. UA shows 2+ protein, WBCs more than 182, and small blood. Hemoglobin 12.1, white cell count 23.8. ASSESSMENT: 1. Acute kidney injury, multifactorial secondary to underlying urinary tract infection. Also, there is concern for acute interstitial nephritis given the significant hypokalemia and a history of recent use of Cipro along with the use of Celebrex as outpatient. Definitely the Celebrex can also add to the acute kidney injury. Renal function has improved with IV fluids. Therefore, I will hold off on starting steroids at this point. We will check for urine eosinophiles as patient does have significant proteinuria. Urine culture is negative. However, we do not have the urine culture from her primary care physician. 2. 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 The patient had been on chlorthalidone which will also induce the hypokalemia. Review of previous labs as outpatient shows another potassium of 3.6 which was slightly on the lower side in October so this could be explained on the basis of the thiazide diuretics. 3. Urinary tract infection. Previous urine culture done as outpatient, not available. Current urine culture not growing any specific bacteria. The patient is maintained on antibiotics, which we will continue. 4. Hypertension, blood pressure is on the lower side. Continue to hold off on antihypertensive medications. PLAN: Check random urine for eosinophiles. Continue IV fluids. Continue antibiotics. Repeat labs in a.m. If renal function does not improve further, I will add empiric steroids for possible acute interstitial nephritis. Hold off on thiazide diuretics for now. The patient is also advised to avoid use of Celebrex and other NSAIDs at this point. MMODL / IJN: [id number] /
--- NOTE | 2019-09-03 22:02 | CONS ---
CONSULTATION DATE OF SERVICE: 09/03/2019. REASON FOR CONSULTATION: Urinary tract infection. HISTORY OF PRESENT ILLNESS: The patient is a 73 -year-old female presenting to the ER on Sunday with chief complaints of urine frequency that apparently started that day. The patient did not have any history of recurrent UTIs, possible mental status changes associated with it. The patient did have a low-grade fever and did have some chills but denies any suprapubic or flank pain. No nausea, no vomiting. No abdominal pain or any diarrhea. With these symptoms the patient was evaluated by the ER physician. On arrival to the ER, the patient did have a low-grade fever of 100. The patient did have elevated white count 21.3 with a repeat of 23.8. The patient also have elevated BUN and creatinine as well as liver exam. The urine was positive with large leukocyte esterase with more than 1-2 WBC. The patient did have a CT abdominal and pelvis completed which did show some mild atelectasis in lung bases. Bilateral renal swelling and mild edema, could be bilateral acute pyelonephritis. The patient also had a renal ultrasound completed which shows bilateral large kidneys, no hydronephrosis with a 2.5 cm cortical cyst lower pole of the left kidney. The patient has been started on Rocephin. Infectious disease was consulted for further recommendation of antibiotic therapy. REVIEW OF SYSTEMS: Positive points have been mentioned in HPI. Rest of systems are negative. PAST MEDICAL HISTORY: Past medical history of hypertension, hyperlipidemia. PAST SURGICAL HISTORY: Carpal tunnel surgery and tubal ligation. SOCIAL HISTORY: Denies smoking, drinking or drug use. FAMILY HISTORY: No pertinent findings noticed. ALLERGIES: TO PENICILLIN AND ERYTHROMYCIN. MEDICATIONS: The patient is currently on Pravachol, Protonix, Mycostatin, aspirin, iron sulfate, Rocephin 1 g daily, aspirin, and Tylenol. PHYSICAL EXAMINATION: Blood pressure is 107/69 with a pulse of 87, temperature is 97.5. She is 99% on room air. General description is an elderly female lying in bed in no distress. No tachypnea or accessory muscles of respiration use. HEENT: Examination shows no pallor or scleral icterus. Oral mucosal membranes are dry. No pharyngeal erythema or thrush. Neck trachea central. No thyromegaly. Lungs unlabored breathing. Clear to auscultation anteriorly. No wheeze or crackles. Heart S1, S2. Regular rate and rhythm. ABDOMEN: Soft, no tenderness. No rigidity. No organomegaly. EXTREMITIES: No edema of the feet. Skin examination: No rash or mass palpable. NEUROLOGICAL: Patient is awake, alert, oriented x2. Mood and affect normal. LABS: BUN of 81, creatinine 2.4. Improved from admission of 3.48. Hemoglobin is 12.1, white count 3.8, white count was not repeated today. Blood and urine culture so far pending. DIAGNOSTIC IMPRESSION AND PLAN: Patient admitted to the hospital with significant frequency of urine. The patient did have a low-grade fever and elevated white count with ultrasound and the CT suggestive of swelling bilateral kidneys suspicious for pyelonephritis, likely source likely from enteric gram-negative pathogen. PLAN: 1. Rocephin 1 g IV piggyback daily to continue. 2. Gentle IV fluid. 3. We will follow her clinical condition and culture to further adjust medication if needed. Thank you for this consultation. We will follow the patient along with you. MMANGELIL / SKYEN: [id number] / OPAL
[2019-09-03] MEDS: PRAVASTATIN SODIUM 20 MG TAB PO SCH (23:15)
[2019-09-04] MEDS: ERTAPENEM 0.5 GM in SODIUM CHLORIDE 0.9% 50 ML IVPB SCH (03:05)
[2019-09-04] MEDS: PANTOPRAZOLE 40 MG TABLET PO SCH (08:49)
[2019-09-04] MEDS: CHOLECALCIFEROL 1,000 UNIT TAB PO SCH (08:49)
[2019-09-04] MEDS: ASPIRIN 81 MG PO SCH (08:49)
[2019-09-04] MEDS: HEPARIN SODIUM,PORCINE 5,000 UNIT/ML 1 ML VIAL SQ SCH ×2 (08:49→17:25)
[2019-09-04] MEDS: FERROUS SULFATE 325 MG TAB PO SCH (08:49)
[2019-09-04] MEDS: METOPROLOL SUCCINATE (ER) 100 MG TAB.ER.24H PO SCH (08:54)
[2019-09-04] MEDS: NYSTATIN 100,000 UNIT/ML SUSP 500,000 UNIT/5 ML CUP PO SCH ×4 (08:54→21:22)
[2019-09-04 09:24] LABS: Potassium 3.6 mmol/L (3.5-5.1)
[2019-09-04] MEDS: SODIUM CHLORIDE 0.9% 1,000 ML IV SCH (12:56)
[2019-09-04 14:08] LABS: Glucose,Whole Blood 151 mg/dL (75-99)
--- NOTE | 2019-09-04 15:41 | P.PN ---
Subjective Progress Note Date: 09/04/19 Principal diagnosis: 73-year-old female was admitted secondary to urinary tract infection patient has significant improvement in clinical a. Although urine sample appears to be co ntaminated. Patient's serum creatinine improved, continue with the 75 mL of normal saline per hour. Patient was evaluated by urology and patient does not appear to have any obstructive etiology. Patient appears to have prerenal azotemia. Constitutional: Denied any fatigue denied any fever. Cardio vascular: denied any chest pain, palpitations Gastrointestinal denied any nausea vomiting Pulmonary: Denied any shortness of breath cough Neurologic denied any new focal deficits All inpatient medications were reviewed and appropriate changes in these medications as dictated in the interval history and assessment and plan. 09/04/2019 Patient is lying in bed and appears to be in no acute distress. Patient's blood cultures preliminary showing E. coli and awaiting finalization. Repeat blood cultures ordered and are pending. Patient is currently on IV antibiotics in the form of Invanz and will continue at this time. Infectious disease is following. Creatinine today has slightly improved and is 2.40. Toprol-XL 100 mg daily was added and will continue to monitor vital signs and labs closely. Currently patient denies any chest pain, shortness of breath, or palpitations. Patient is afebrile. Patient denies any nausea or vomiting and has been tolerating diet. Patient states that she has had multiple episodes of diarrhea overnight with no blood noted. No bowel movements today. Patient believes it is due to the antibiotic therapy. Objective - Vital Signs Vital signs: Vital Signs Temp 97.5 F L 09/04/19 13:20 Pulse 61 09/04/19 13:20 Resp 16 09/04/19 13:20 BP 100/62 09/04/19 13:20 Pulse Ox 97 09/04/19 13:20 Intake & Output 09/03/19 09/04/19 09/04/19 18:59 06:59 18:59 Intake Total 540 800 540 Output Total 400 Balance 540 400 540 Intake: Oral 540 800 540 Output: Urine 400 Other: # Voids 5 12 8 # Bowel Movements 0 - Exam GENERAL: The patient is alert and oriented x3, not in any acute distress. Well developed, well nourished. HEENT: Pupils are round and equally reacting to light. EOMI. No scleral icterus. No conjunctival pallor. Normocephalic, atraumatic. No pharyngeal erythema. No thyromegaly. CARDIOVASCULAR: S1 and S2 present. No murmurs, rubs, or gallops. PULMONARY: Chest is clear to auscultation, no wheezing or crackles. ABDOMEN: Soft, nontender, nondistended, normoactive bowel sounds. No palpable organomegaly. MUSCULOSKELETAL: No joint swelling or deformity. EXTREMITIES: No cyanosis, clubbing, or pedal edema. NEUROLOGICAL: Gross neurological examination did not reveal any focal deficits. SKIN: No rashes. - Labs CBC & Chem 7: 09/02/19 08:30 09/04/19 08:49 Labs: Abnormal Lab Results - Last 24 Hours (Table) 09/04/19 09/04/19 Range/Units 08:49 14:06 Sodium 136 L (137-145) mmol/L Carbon Dioxide 20 L (22-30) mmol/L BUN 69 H (7-17) mg/dL Creatinine 2.40 H (0.52-1.04) mg/dL Glucose 151 H (74-99) mg/dL POC Glucose (mg/dL) 151 H (75-99) mg/dL Calcium 8.0 L (8.4-10.2) mg/dL Microbiology - Last 24 Hours (Table) 09/01/19 23:42 Blood Culture Gram Stain - Preliminary Blood Blood Culture - Preliminary Escherichia coli 09/01/19 23:42 Blood Culture - Final Blood Assessment and Plan Assessment: -Syncope secondary to hypotension which is again related to either severe hypovolemia and may be a component of sepsis also. Patient will be continued on IV fluids -possible urinary tract infection. urine cultures cultures were contaminated, we'll discharge her on empiric antibiotic tomorrow. Continue with 75 mL of normal saline. Initial blood culture drawn on presentation to the hospital is preliminary showing E. coli and will await finalization. Repeat cultures o rdered today and pending at this time. Patient is currently on Invanz. Infectious disease is following. -Acute renal failure secondary to severe intravascular depletion from chlorthalidone and Celebrex may be contributory to it as well, this will be held. Continue IV fluids recheck kidney function tomorrow. BUN is 69, creatinine is 2.40 and trending down. Will repeat a.m. labs -Hypertension patient is presently hypotensive hold off on atenolol and chlorthalidone. Toprol-XL 100 mg was added and will continue to monitor closely -Gastroesophageal reflux disease -Hyperlipidemia -DVT prophylaxis with subcutaneous heparin
--- NOTE | 2019-09-04 18:17 | PN ---
PROGRESS NOTE Patient is seen for followup for acute kidney injury. Patient is maintained on IV fluids. Her urine culture grew E coli. She is maintained on IV antibiotics as well. Creatinine is down to 2.4 from 3.48 on initial admission. Overall, patient denies any significant complaints. PHYSICAL EXAMINATION: On examination, blood pressure was 131/72, heart rate of 60 per minute. She is afebrile. EXAMINATION OF THE HEART: S1 and S2. EXAMINATION OF LUNGS: Bilateral breath sounds are heard. ABDOMEN: Soft, non-tender. Examination of lower extremities shows no significant edema. 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 LABS: Sodium of 136, potassium 3.6, chloride 106. CO2 is 20, BUN 69, creatinine 2.4. ASSESSMENT: 1. Acute kidney injury, mostly prerenal and secondary to urinary tract infection and sepsis. Continue with IV fluids. Renal function continues to improve. There was concern for possible acute interstitial nephritis, given the use of Cipro and Celebrex prior to admission, and patient was also on proton pump inhibitors. Urine eosinophiles are zero and renal function continues to improve. Therefore I will hold off on the empiric steroids. 2. Urinary tract infection. Urine culture growing Escherichia coli. Maintained on antibiotics. 3. Hypokalemia secondary to thiazide diuretics prior to admission, currently improved. PLAN: Continue IV fluids. Repeat labs in a.m. Patient could be discharged by tomorrow if cleared by ID. NORA / SKYEN: [id number] /
[2019-09-04] MEDS: PRAVASTATIN SODIUM 20 MG TAB PO SCH (21:22)
--- NOTE | 2019-09-04 22:53 | PN ---
PROGRESS NOTE DATE OF SERVICE: 09/04/2019 REASON FOR FOLLOWUP: E coli bacteremia; possibly urinary source. INTERVAL HISTORY: The patient is currently afebrile. The patient has been feeling better, breathing comfortably. Denies having any chest pain or any cough. Her urinary symptoms have slightly improved. No nausea, no vomiting and no diarrhea. PHYSICAL EXAMINATION: Blood pressure is 100/62 with a pulse of 61, temperature 97.5. She is 97% on room air. General description is an elderly female lying in bed in no distress. RESPIRATORY SYSTEM: Unlabored breathing. Clear to auscultation anteriorly. HEART: S1, S2. Regular rate and rhythm. ABDOMEN: Soft. No tenderness. LABS: Creatinine is down at 2.40. Blood culture with E coli. DIAGNOSTIC IMPRESSION AND PLAN: Patient with Escherichia coli bacteremia. Source is likely urinary in this patient who did have and urinary symptoms and positive UA. CT of abdomen and pelvis did not show any evidence of colitis or GI source. Patient to continue with Invanz that started yesterday while waiting for the sensitivity to determine her discharge antibiotics. Continue with supportive care. MMODL / IJN: [id number] /
[2019-09-05] MEDS: HEPARIN SODIUM,PORCINE 5,000 UNIT/ML 1 ML VIAL SQ SCH ×3 (00:28→17:29)
[2019-09-05] MEDS: SODIUM CHLORIDE 0.9% 1,000 ML IV SCH ×2 (00:29→15:35)
[2019-09-05] MEDS: ERTAPENEM 0.5 GM in SODIUM CHLORIDE 0.9% 50 ML IVPB SCH (03:50)
[2019-09-05 08:08] LABS: Basophils % (A) 0 %; Eosinophils # (A) 0.1 k/uL (0-0.7); Eosinophils % (A) 0 %; HCT 29.1 % (34.0-46.0); HGB 10.1 gm/dL (11.4-16.0); Lymphocytes # (A) 1.2 k/uL (1.0-4.8); Lymphocytes % (A) 5 %; MCH 30.9 pg (25.0-35.0); MCHC 34.6 g/dL (31.0-37.0); MCV 89.4 fL (80.0-100.0); Mean Platelet Volume 8.9; Monocytes # (A) 0.7 k/uL (0-1.0); Monocytes % (A) 3 %; Neutrophils # (A) 21.9 k/uL (1.3-7.7); Neutrophils % (A) 90 %; Platelet Count 384 k/uL (150-450); RBC 3.26 m/uL (3.80-5.40); RDW 13.1 % (11.5-15.5); WBC 24.3 k/uL (3.8-10.6)
[2019-09-05 08:20] LABS: Calcium 7.5 mg/dL (8.4-10.2); Potassium 3.6 mmol/L (3.5-5.1)
[2019-09-05] MEDS: METOPROLOL SUCCINATE (ER) 100 MG TAB.ER.24H PO SCH (09:09)
[2019-09-05] MEDS: CHOLECALCIFEROL 1,000 UNIT TAB PO SCH (09:09)
[2019-09-05] MEDS: ASPIRIN 81 MG PO SCH (09:10)
[2019-09-05] MEDS: NYSTATIN 100,000 UNIT/ML SUSP 500,000 UNIT/5 ML CUP PO SCH ×4 (09:10→21:37)
[2019-09-05] MEDS: FERROUS SULFATE 325 MG TAB PO SCH (09:10)
[2019-09-05] MEDS: PANTOPRAZOLE 40 MG TABLET PO SCH (09:10)
--- NOTE | 2019-09-05 11:24 | PN ---
PROGRESS NOTE Patient is seen for followup for acute kidney injury. She is currently being treated for urinary tract infection and is maintained on IV fluids and IV antibiotics. PHYSICAL EXAMINATION: On examination today, blood pressure was 153/84, heart rate 77 per minute, she is afebrile. Examination of the heart S1, S2. Examination of the lungs, bilateral breath sounds are heard. Abdomen is soft, non-tender. Examination of the lower extremities shows no evidence of edema. FACILITIES PAINTER exam grossly intact. LABS: Show sodium 136, potassium 3.6, BUN 58, creatinine 2.08, hemoglobin 10.1 g/dL. ASSESSMENT: 1. Acute kidney injury secondary to underlying urinary tract infection, slowly improving. Continue with IV fluids. Patient can be discharged from nephrology standpoint if she is cleared from ID standpoint. Patient is advised to avoid nephrotoxic medications including NSAIDs. She should also hold off on her Celebrex that she was taking at home. Repeat labs as outpatient if she is discharged. 2. Urinary tract infection with current urine culture negative; however, patient was started on antibiotics prior to admission. Her blood cultures are growing Escherichia coli and she is being followed by ID. 3. Sepsis, maintained on antibiotics and IV fluids. 4. Hypokalemia on initial admission secondary to thiazide diuretics prior to admission. Currently, status post replacement. 5. Metabolic acidosis on initial admission secondary to renal failure, now improved. PLAN: Continue IV fluids. Continue IV antibiotics. I believe patient will need to stay until her blood cultures are negative. She is being followed by ID. NORA / TERRI: [id number] /
[2019-09-05 13:24] LABS: Appearance,Urine Clear (Clear); Bacteria,Urine Rare /hpf; Bilirubin,Urine Negative (Negative); Blood,Urine Negative (Negative); Color,Urine Light Yellow; Glucose,Urine (UA) Negative (Negative); Ketones,Urine Negative (Negative); Leukocyte Esterase,Urine Moderate (Negative); Nitrite,Urine Negative (Negative); PH, Urine 5.5 (5.0-8.0); Protein,Urine Negative (Negative); Specific Gravity,Urine 1.005 (1.001-1.035); Squamous Epithelial Cell,Urine 2 /hpf (0-4); Urobilinogen,Urine <2.0 mg/dL (<2.0); WBC,Urine 20 /hpf (0-5)
--- NOTE | 2019-09-05 14:00 | PN ---
PROGRESS NOTE DATE OF SERVICE: 09/05/2019 REASON FOR FOLLOWUP: E coli bacteremia, source likely urinary. INTERVAL HISTORY: The patient is currently afebrile. Patient has been breathing comfortably. The patient denies having any chest pain or any cough. No nausea, vomiting. No abdominal pain and no diarrhea. Urinary symptom has improved. PHYSICAL EXAMINATION: On examination, her blood pressure is 153/84 with a pulse of 77, temperature 98. She is 99% on room air. General description is an elderly female, lying in bed in no distress. HEENT EXAMINATION: Slight pallor. No scleral icterus. Oral mucous membranes dry. LUNGS: Unlabored breathing, clear to auscultation anteriorly. HEART: S1, S2. Regular rate and rhythm. ABDOMEN: Soft, no tenderness. EXTREMITIES: No edema of the feet. LABS: Hemoglobin is 10.1, white count 24,000. BUN of 58, creatinine 2.08. Blood culture with E. coli, sensitive pathogen. Follow up blood culture has been negative. DIAGNOSTIC IMPRESSION AND PLAN: Patient with Escherichia coli bacteremia, source is likely urinary in this patient who did have urinary symptoms and the ultrasound did show kidney, but no hydronephrosis. Urology seen the patient and no workup recommended. The patient did have worsening of the white count which is concerning despite being on antibiotic therapy. UA will be repeated as well as ultrasound will be repeated. Antibiotic adjusted to Rocephin 2 grams daily discharge while waiting for the white count to improved. Monitor clinical course closely. MMODL / IJN: [id number] /
--- NOTE | 2019-09-05 14:23 | US ---
EXAMINATION TYPE: US kidneys/renal and bladder DATE OF EXAM: 09/05/2019 COMPARISON: NONE CLINICAL HISTORY: /renal abscess/hydronephrosis. UTI EXAM MEASUREMENTS: Right Kidney: 12.2 x 5.9 x 6.0 cm Left Kidney: 11.0 x 5.9 x 5.1 cm Right Kidney: No hydronephrosis or renal stone Left Kidney: No hydronephrosis or renal stone, cystic area lower pole = 2.9 x 2.7 x 2.8cm Bladder: appears wnl Bilateral Jets seen: yes Cortical measured differentiation is maintained. IMPRESSION: Simple cyst lower pole left kidney.
--- NOTE | 2019-09-05 15:18 | P.PN ---
Subjective Progress Note Date: 09/05/19 Principal diagnosis: 73-year-old female was admitted secondary to urinary tract infection patient has significant improvement in clinical a. Although urine sample appears to be co ntaminated. Patient's serum creatinine improved, continue with the 75 mL of normal saline per hour. Patient was evaluated by urology and patient does not appear to have any obstructive etiology. Patient appears to have prerenal azotemia. Constitutional: Denied any fatigue denied any fever. Cardio vascular: denied any chest pain, palpitations Gastrointestinal denied any nausea vomiting Pulmonary: Denied any shortness of breath cough Neurologic denied any new focal deficits All inpatient medications were reviewed and appropriate changes in these medications as dictated in the interval history and assessment and plan. 09/04/2019 Patient is lying in bed and appears to be in no acute distress. Patient's blood cultures preliminary showing E. coli and awaiting finalization. Repeat blood cultures ordered and are pending. Patient is currently on IV antibiotics in the form of Invanz and will continue at this time. Infectious disease is following. Creatinine today has slightly improved and is 2.40. Toprol-XL 100 mg daily was added and will continue to monitor vital signs and labs closely. Currently patient denies any chest pain, shortness of breath, or palpitations. Patient is afebrile. Patient denies any nausea or vomiting and has been tolerating diet. Patient states that she has had multiple episodes of diarrhea overnight with no blood noted. No bowel movements today. Patient believes it is due to the antibiotic therapy. 09/05/2019 Patient is lying in bed and appears to be in no acute distress. Patient states that she would really like to go home and she feels exhausted and has been unable to sleep here. Patient's white blood count today is trending up and is currently 24.3. Infectious disease is following. Creatinine slightly improved and is 2.08. Will repeat a.m. labs. Repeat urinalysis is negative. Patient was started on ceftriaxone and Invanz was discontinued. Patient had an ultrasound of the abdomen and bladder done showing no hydronephrosis bilaterally in a simple cyst noted in the lower pole the left kidney. Currently patient is denying any chest pain, palpitations, or shortness of breath. Patient is afebrile. Patient denies any nausea or vomiting and has been tolerating diet. Patient states that her diarrhea has subsided. Objective - Vital Signs Vital signs: Vital Signs Temp 97.5 F L 09/05/19 13:13 Pulse 68 09/05/19 13:13 Resp 15 09/05/19 13:13 BP 135/78 09/05/19 13:13 Pulse Ox 98 09/05/19 13:13 Intake & Output 09/04/19 09/05/19 09/05/19 18:59 06:59 18:59 Intake Total 1080 940 Balance 1080 940 Weight 68.039 kg Intake: Intake, IV Titration 700 Amount Sodium Chloride 0.9% 1, 600 000 ml @ 75 mls/hr IV . [id number] [facility] Rx#:[id number] cefTRIAXone 2 gm In 100 Sodium Chloride 0.9% 50 ml @ 100 mls/hr IVPB Q24HR [facility] Rx#:[id number] Oral 1080 240 Other: Voiding Method Bedside Commode # Voids 4 3 # Bowel Movements 3 - Exam GENERAL: The patient is alert and oriented x3, not in any acute distress. Well developed, well nourished. HEENT: Pupils are round and equally reacting to light. EOMI. No scleral icterus. No conjunctival pallor. Normocephalic, atraumatic. No pharyngeal erythema. No th yromegaly. CARDIOVASCULAR: S1 and S2 present. No murmurs, rubs, or gallops. PULMONARY: Chest is clear to auscultation, no wheezing or crackles. ABDOMEN: Soft, non-tender, nondistended, normoactive bowel sounds. No palpable organomegaly. MUSCULOSKELETAL: No joint swelling or deformity. EXTREMITIES: No cyanosis, clubbing, or pedal edema. NEUROLOGICAL: Gross neurological examination did not reveal any focal deficits. SKIN: No rashes. - Labs CBC & Chem 7: 09/05/19 07:31 09/05/19 07:31 Labs: Abnormal Lab Results - Last 24 Hours (Table) 09/05/19 09/05/19 09/05/19 Range/Units 07:31 07:31 12:45 WBC 24.3 H (3.8-10.6) k/uL RBC 3.26 L (3.80-5.40) m/uL Hgb 10.1 L (11.4-16.0) gm/dL Hct 29.1 L (34.0-46.0) % Neutrophils # 21.9 H (1.3-7.7) k/uL Sodium 136 L (137-145) mmol/L BUN 58 H (7-17) mg/dL Creatinine 2.08 H (0.52-1.04) mg/dL Calcium 7.5 L (8.4-10.2) mg/dL Ur Leukocyte Esterase Moderate H (Negative) Urine WBC 20 H (0-5) /hpf Urine Bacteria Rare H (None) /hpf Microbiology - Last 24 Hours (Table) 09/04/19 08:49 Blood Culture - Preliminary Blood No Growth after 24 hours 09/01/19 23:42 Blood Culture Gram Stain - Final Blood Blood Culture - Final Escherichia coli Assessment and Plan Assessment: -Syncope secondary to hypotension which is again related to either severe hypovolemia and may be a component of sepsis also. Patient will be continued on IV fluids -possible urinary tract infection. urine cultures cultures were contaminated, we'll discharge her on empiric antibiotic tomorrow. Continue with 75 mL of normal saline. Initial blood culture drawn on presentation to the hospital is finalized showing E. coli and IV antibiotics were adjusted to Rocephin 2 g daily and Invanz was discontinued. Repeat cultures ordered today and preliminary is negative. Infectious disease is following. -Acute renal failure secondary to severe intravascular depletion from chlorthalidone and Celebrex may be contributory to it as well, this will be held. Continue IV fluids recheck kidney function tomorrow. BUN is 58, creatinine is 2.08 and trending down. Will repeat a.m. labs -Hypertension patient is presently hypotensive hold off on atenolol and chlorthalidone. Toprol-XL 100 mg was added and will continue to monitor closely -Gastroesophageal reflux disease -Hyperlipidemia -DVT prophylaxis with subcutaneous heparin
[2019-09-05] MEDS: PRAVASTATIN SODIUM 20 MG TAB PO SCH (21:34)
[2019-09-06] MEDS: HEPARIN SODIUM,PORCINE 5,000 UNIT/ML 1 ML VIAL SQ SCH ×3 (00:12→15:26)
[2019-09-06 08:05] LABS: Basophils # (A) 0.1 k/uL (0-0.2); Basophils % (A) 0 %; Eosinophils # (A) 0.1 k/uL (0-0.7); Eosinophils % (A) 0 %; HCT 28.6 % (34.0-46.0); HGB 9.6 gm/dL (11.4-16.0); Lymphocytes % (A) 5 %; MCH 30.1 pg (25.0-35.0); MCHC 33.5 g/dL (31.0-37.0); Mean Platelet Volume 8.3; Monocytes # (A) 0.5 k/uL (0-1.0); Monocytes % (A) 3 %; Neutrophils % (A) 90 %; Platelet Count 440 k/uL (150-450); RBC 3.18 m/uL (3.80-5.40); RDW 13.1 % (11.5-15.5)
[2019-09-06] MEDS: ASPIRIN 81 MG PO SCH (08:07)
[2019-09-06] MEDS: METOPROLOL SUCCINATE (ER) 100 MG TAB.ER.24H PO SCH (08:07)
[2019-09-06] MEDS: PANTOPRAZOLE 40 MG TABLET PO SCH (08:07)
[2019-09-06] MEDS: FERROUS SULFATE 325 MG TAB PO SCH (08:07)
[2019-09-06] MEDS: CHOLECALCIFEROL 1,000 UNIT TAB PO SCH (08:07)
[2019-09-06] MEDS: NYSTATIN 100,000 UNIT/ML SUSP 500,000 UNIT/5 ML CUP PO SCH ×4 (08:08→22:20)
[2019-09-06] MEDS: SODIUM CHLORIDE 0.9% 1,000 ML IV SCH ×2 (08:08→15:27)
[2019-09-06 08:18] LABS: Calcium 7.4 mg/dL (8.4-10.2); Potassium 3.5 mmol/L (3.5-5.1)
[2019-09-06] MEDS ORDERED: POTASSIUM CHLORIDE ER 20 MEQ TAB.ER PO STA (08:43)
--- NOTE | 2019-09-06 08:43 | P.PN ---
Subjective Patient is seen in follow-up for acute kidney injury. Renal function is improving. Denies chest pain or shortness of breath. Oral intake is fair. Admits to good urine output. Vital signs are stable. General: The patient appeared well nourished and normally developed. HEENT: Head exam is unremarkable. Neck is without jugular venous distension. LUNGS: Lungs are clear to auscultation and percussion. Breath sounds decreased. HEART: Rate and Rhythm are regular. First and second heart sounds normal. No murmurs, rubs or gallops. ABDOMEN: Abdominal exam reveals normal bowel sounds. Non-tender and non- distended. No evidence of peritonitis. EXTREMITITES: No clubbing, cyanosis, or edema. Objective - Vital Signs Vital signs: Vital Signs Temp 98.1 F 09/06/19 04:35 Pulse 83 09/06/19 04:35 Resp 20 09/06/19 04:35 BP 117/70 09/06/19 04:35 Pulse Ox 97 09/06/19 04:35 Intake & Output 09/05/19 09/06/19 09/06/19 18:59 06:59 18:59 Intake Total 1180 700 Balance 1180 700 Weight 68.039 kg Intake: Intake, IV Titration 700 Amount Sodium Chloride 0.9% 1, 600 000 ml @ 75 mls/hr IV . [id number] [facility] Rx#:[id number] cefTRIAXone 2 gm In 100 Sodium Chloride 0.9% 50 ml @ 100 mls/hr IVPB Q24HR [facility] Rx#:[id number] Oral 480 700 Other: Voiding Method Bedside Commode # Voids 5 # Bowel Movements 0 - Labs CBC & Chem 7: 09/06/19 07:41 09/06/19 07:41 Labs: Abnormal Lab Results - Last 24 Hours (Table) 09/05/19 09/06/19 09/06/19 Range/Units 12:45 07:41 07:41 WBC 20.0 H (3.8-10.6) k/uL RBC 3.18 L (3.80-5.40) m/uL Hgb 9.6 L (11.4-16.0) gm/dL Hct 28.6 L (34.0-46.0) % Neutrophils # 18.0 H (1.3-7.7) k/uL BUN 47 H (7-17) mg/dL Creatinine 1.79 H (0.52-1.04) mg/dL Calcium 7.4 L (8.4-10.2) mg/dL Ur Leukocyte Esterase Moderate H (Negative) Urine WBC 20 H (0-5) /hpf Urine Bacteria Rare H (None) /hpf Microbiology - Last 24 Hours (Table) 09/05/19 12:45 Urine Culture - Preliminary Urine,Voided 09/04/19 08:49 Blood Culture - Preliminary Blood No Growth after 24 hours Assessment and Plan Plan: Assessment: 1. Acute kidney injury secondary to ATN secondary to infection. Renal function improving. Creatinine 1.79 today. UA benign. No evidence of hydronephrosis and kidney ultrasound. 2. E. coli bacteremia maintained on antibiotics. 3. Hypokalemia from poor oral intake. Patient was on diuretics prior to ad mission. 4. Metabolic acidosis secondary to acute kidney injury. Better. Plan: Maintain normal saline at 75 mL an hour. Replace potassium. 40 mEq today. Continue to monitor renal function and urine output.
[2019-09-06 08:54] LABS: C Reactive Protein 155.8 mg/L (<10.0)
[2019-09-06] MEDS: ACETAMINOPHEN TAB 500 MG TAB PO PRN ×2 (11:55→22:28)
--- NOTE | 2019-09-06 20:08 | PN ---
PROGRESS NOTE DATE OF SERVICE: September 06, 2019. This 73-year-old woman was admitted with syncope secondary to hypotension was also being closely monitored. The patient also had evidence of UTI also. The lab blakely the creatinine is 1.71, which is rather improving. CRP is also elevated at 155. The patient also had possibly evidence of UTI as well. The patient is on empiric Rocephin at this time. The patient also seen by multiple consultants including Nephrology which is being closely monitored at this time. E coli was grown from the blood culture, possibly urinary origin. The patient also has hypomagnesemia. PAST MEDICAL HISTORY: Reviewed. REVIEW OF SYSTEMS: CARDIOVASCULAR SYSTEM: No angina or palpitations. RESPIRATIONS: As mentioned earlier. GI as mentioned earlier. : As mentioned earlier. Nervous system: Diffusely weak. CURRENT MEDICATIONS: Reviewed and include: 1. Tylenol 1000 mg p.o. b.i.d. 2. Aspirin 81 mg p.o. daily. 3. Cepacol. 4. Rocephin 2 g IV daily. 5. Iron sulfate. 6. Heparin. 7. Toprol-XL. 8. Mycostatin. 9. Protonix. 10.Pravachol. 11.Doses reviewed. PHYSICAL EXAM: Patient is alert, oriented x3. Pulse is 69. Blood pressure 133/77. Respirations 18, temperature 98 degrees, pulse ox 98% on room air. HEENT: Conjunctivae normal. NECK: No jugular venous distention. CARDIOVASCULAR SYSTEM: S1, S2 muffled. RESPIRATORY SYSTEM: Breath sounds diminished at the bases. Bilateral scattered rhonchi and crackles. ABDOMEN: Soft. Nontender. LEGS are no edema. No swelling. CENTRAL NERVOUS SYSTEM: No focal deficits. LABS: WBC 10, hemoglobin 9.6, creatinine is 1.79. ASSESSMENT: 1. Acute urinary tract infection with sepsis present on admission with E coli. 2. Syncope with hypotension multifactorial. 3. Severe hypotension with septic shock, present on admission. 4. Acute renal failure with acute tubular necrosis, acute prerenal renal failure. 5. History of hypertension. 6. Hyperlipidemia. 7. History of tubal ligation. 8. History of carpal tunnel syndrome. 9. Gastroesophageal reflux disease. 10.Deep vein thrombosis prophylaxis. RECOMMENDATIONS AND DISCUSSION: This 73-year-old woman who presented with multiple complex medical issues, we will monitor the patient closely. Continue the current medications, management and symptomatic treatment. Continue with continue with current medications. The blood pressure is stabilized. Continue IV fluids. Continue with IV antibiotics. DVT prophylaxis. We will avoid nephrotoxic medications including the diuretics and multiple medications the patient was taking at home as well. Otherwise, the prognosis guarded. See orders for further details. Further recommendations to follow. Repeat labs have been ordered. NORA / IJN: [id number] /
[2019-09-06] MEDS: PRAVASTATIN SODIUM 20 MG TAB PO SCH (22:07)
[2019-09-07] MEDS: HEPARIN SODIUM,PORCINE 5,000 UNIT/ML 1 ML VIAL SQ SCH ×3 (00:30→16:01)
--- NOTE | 2019-09-07 01:04 | PN ---
PROGRESS NOTE DATE OF SERVICE: 09/06/2019. REASON FOR FOLLOWUP: E coli bacteremia secondary to urinary tract infection. INTERVAL HISTORY: The patient is currently afebrile. The patient is breathing comfortably. Patient denies having any chest pain. No shortness of breath or cough. No nausea, vomiting. No abdominal pain. No diarrhea. PHYSICAL EXAMINATION: Blood pressure 133/73 with a pulse of 69. Temperature of 98. She is 96% on room air. General description is an elderly female up in the chair in no distress. Respiratory system: Unlabored breathing. Clear to auscultation anteriorly. Heart S1, S2. Regular rate and rhythm. ABDOMEN: Soft, no tenderness. EXTREMITIES: No edema of the feet. LABS: Hemoglobin 9.5, white count 20,000. Creatinine is 1.79. DIAGNOSTIC IMPRESSION AND PLAN: Patient with E coli bacteremia, source likely urinary in this patient white count showing a downward trend. The patient is currently on Rocephin with the plan to finish therapy with oral Cipro for at least another 10-12 days and monitor clinical course closely. Plan of care discussed with the admitting physician. MMODL / IJN: [id number] /
[2019-09-07] MEDS: CHOLECALCIFEROL 1,000 UNIT TAB PO SCH (07:15)
[2019-09-07] MEDS: MULTIVITAMINS, THERA 1 EACH TAB PO SCH (07:15)
[2019-09-07] MEDS: METOPROLOL SUCCINATE (ER) 100 MG TAB.ER.24H PO SCH (07:15)
[2019-09-07] MEDS: NYSTATIN 100,000 UNIT/ML SUSP 500,000 UNIT/5 ML CUP PO SCH ×4 (07:15→22:20)
[2019-09-07] MEDS: ASPIRIN 81 MG PO SCH (07:15)
[2019-09-07] MEDS: FERROUS SULFATE 325 MG TAB PO SCH (07:15)
[2019-09-07] MEDS: PANTOPRAZOLE 40 MG TABLET PO SCH (07:16)
[2019-09-07] MEDS: SODIUM CHLORIDE 0.9% 1,000 ML IV SCH (07:16)
[2019-09-07 09:19] LABS: Calcium 7.8 mg/dL (8.4-10.2); Magnesium 1.1 mg/dL (1.6-2.3)
--- NOTE | 2019-09-07 09:34 | P.PN ---
Subjective Patient is seen in follow-up for acute kidney injury. Renal function is improving. Denies chest pain or shortness of breath. Oral intake is fair. Admits to good urine output. Vital signs are stable. General: The patient appeared well nourished and normally developed. HEENT: Head exam is unremarkable. Neck is without jugular venous distension. LUNGS: Lungs are clear to auscultation and percussion. Breath sounds decreased. HEART: Rate and Rhythm are regular. First and second heart sounds normal. No murmurs, rubs or gallops. ABDOMEN: Abdominal exam reveals normal bowel sounds. Non-tender and non- distended. No evidence of peritonitis. EXTREMITITES: No clubbing, cyanosis, or edema. Objective - Vital Signs Vital signs: Vital Signs Temp 97.9 F 09/07/19 04:50 Pulse 75 09/07/19 04:50 Resp 20 09/07/19 04:50 BP 129/63 09/07/19 04:50 Pulse Ox 97 09/07/19 04:50 Intake & Output 09/06/19 09/07/19 09/07/19 18:59 06:59 18:59 Intake Total 590 500 Balance 590 500 Intake: Intake, IV Titration 50 Amount cefTRIAXone 2 gm In 50 Sodium Chloride 0.9% 50 ml @ 100 mls/hr IVPB Q24HR [facility] Rx#:[id number] Oral 540 500 Other: Voiding Method Toilet Toilet Toilet # Voids 5 # Bowel Movements 0 - Labs CBC & Chem 7: 09/06/19 07:41 09/07/19 08:40 Labs: Abnormal Lab Results - Last 24 Hours (Table) 09/07/19 Range/Units 08:40 BUN 39 H (7-17) mg/dL Creatinine 1.64 H (0.52-1.04) mg/dL Glucose 139 H (74-99) mg/dL Calcium 7.8 L (8.4-10.2) mg/dL Magnesium 1.1 L (1.6-2.3) mg/dL Microbiology - Last 24 Hours (Table) 09/05/19 12:45 Urine Culture - Final Urine,Voided 09/04/19 08:49 Blood Culture - Preliminary Blood No Growth after 48 hours Assessment and Plan Plan: Assessment: 1. Acute kidney injury secondary to ATN secondary to infection. Renal function improving. Creatinine 1.64 today. UA benign. No evidence of hydronephrosis and kidney ultrasound. 2. E. coli bacteremia maintained on antibiotics. 3. Hypokalemia from poor oral intake. Patient was on diuretics prior to adm ission. Better. 4. Metabolic acidosis secondary to acute kidney injury. Resolved. 5. Hypomagnesemia from poor oral intake. Plan: Hep-Lock IV fluids. Replace magnesium. 4 g IV today. Continue to monitor renal function and urine output.
[2019-09-07 09:51] LABS: Basophils % (A) 0 %; Eosinophils # (A) 0.1 k/uL (0-0.7); Eosinophils % (A) 0 %; HCT 32.8 % (34.0-46.0); HGB 11.1 gm/dL (11.4-16.0); Lymphocytes # (A) 0.7 k/uL (1.0-4.8); Lymphocytes % (A) 3 %; MCH 31.2 pg (25.0-35.0); MCV 91.8 fL (80.0-100.0); Mean Platelet Volume 8.7; Monocytes # (A) 0.4 k/uL (0-1.0); Monocytes % (A) 2 %; Neutrophils # (A) 22.3 k/uL (1.3-7.7); Neutrophils % (A) 94 %; Platelet Count 565 k/uL (150-450); RBC 3.58 m/uL (3.80-5.40); RDW 13.2 % (11.5-15.5); WBC 23.6 k/uL (3.8-10.6)
[2019-09-07] MEDS: MAGNESIUM SULFATE-D5W PMX 1 GM in DEXTROSE/WATER 1 100ML.BAG IVPB SCH ×4 (09:58→14:04)
[2019-09-07] MEDS ORDERED: FLUCONAZOLE 100 MG TAB PO SCH (13:45)
[2019-09-07] MEDS: VANCOMYCIN ORAL SOLUTION 250 MG/5 ML BOTTLE PO SCH (16:01)
[2019-09-07] MEDS ORDERED: Potassium Replacement Protocol 1 EACH MISC MISCELLANE PRN (16:15)
[2019-09-07] MEDS ORDERED: Magnesium Replacement Protocol 1 EACH MISC MISCELLANE PRN (16:15)
[2019-09-07] MEDS: IOPAMIDOL CONTRAST (ORAL USE) VIAL PO PRN ×2 (16:29→17:18)
--- NOTE | 2019-09-07 17:53 | PN ---
PROGRESS NOTE DATE OF SERVICE: 09/07/2019. REASON FOR FOLLOWUP: 1. E coli bacteremia secondary to urinary source. 2. Persistent elevated white count. INTERVAL HISTORY: The patient is currently afebrile. Patient has been breathing comfortably. The patient denies having any chest pain or shortness of breath or cough. No abdominal pain. Urinary some frequency but no burning, suprapubic or flank pain. The patient has been complaining of diarrhea. Stool for C difficile has been requested since Sunday. Unfortunately, not collected. PHYSICAL EXAMINATION: Blood pressure 108/54 with a pulse of 72. Temperature is 97.6, she is 98% on room air. General description is an elderly female up in the chair in no distress. Respiratory system: Unlabored breathing. Clear to auscultation anteriorly. Heart S1, S2. Regular rate and rhythm. ABDOMEN: Soft. No tenderness. EXTREMITIES: No edema of the feet. LABS: The patient's white count is up to 23,000. Repeat urine cultures have been negative. DIAGNOSTIC IMPRESSION AND PLAN: Patient with E coli bacteremia, source likely urinary in this patient on adequate antibiotic therapy. However, the white count still elevated. The ultrasound of the kidneys did not show any abscess, now with diarrhea, concern for possible C. difficile. Unfortunately, stool for C dif requested 3 days ago has not been sent. Discussed again in detail with the RN to send stool for C difficile. We will empirically add oral vancomycin and repeat CBC tomorrow. Continue with Rocephin and continue supportive care. MMODL / IJN: [id number] /
--- NOTE | 2019-09-07 18:22 | CT ---
EXAMINATION TYPE: CT ChestAbdPelvis wo con DATE OF EXAM: 09/07/2019 COMPARISON: CT abdomen 09/01/2019 HISTORY: High WBC. CT DLP: 809.8 mGycm Automated exposure control for dose reduction was used. Multiple axial images were obtained from the thoracic inlet to the floor the pelvis with oral contras t only. The lungs are clear of infiltrate. There is no pleural effusion. There is no pericardial effusion. Th ere is no mediastinal adenopathy. There are no hilar masses. There is mild coronary artery calcificat ion. Stomach is intact. Liver spleen pancreas appear normal. Gallbladder is contracted. Bile ducts are not dilated. There is no adrenal mass. Kidneys appear large. There is no hydronephrosis. Ureters are not dilated. There is no retroperitoneal adenopathy. Bladder distends smoothly. There is no inguinal hernia. There is some uterine calcification consistent with fibroids. There is no free fluid in the pelvis. I see no intestinal wall thickening. There is no sign of a bowel obstruction. There is no mesenteric edema. There is no ascites or free air. Appendix appears normal. There is spondylotic changes in the thoracic and lumbar spine. I see no compression fracture. There is some narrowing of the disc spaces in the lumbar spine at L2-3 L3-4. The bony pelvis is intact. The ribs appear intact. There is 2 cm co rtical cyst lower pole left kidney. IMPRESSION: There is clearing of the mild atelectasis at the lung bases compared to last exam. There appears to b e some diffuse swelling of the kidneys. No hydronephrosis. Kidneys unchanged.
--- NOTE | 2019-09-07 19:23 | PN ---
PROGRESS NOTE DATE OF SERVICE: 09/07/2019 This 73-year-old woman who was admitted with acute UTI also had possible sepsis. E coli was grown from the blood culture. The white count is still elevated at 23.6 and creatinine is 1.64. C-reactive protein is elevated 155.8. The patient being closely monitored. PAST MEDICAL HISTORY: Reviewed. REVIEW OF SYSTEMS: CARDIOVASCULAR SYSTEM: No angina or palpitations. RESPIRATORY: As mentioned earlier. GI: As mentioned earlier. : No dysuria or retention. CENTRAL NERVOUS SYSTEM: No numbness or weakness. CURRENT MEDICATIONS: Reviewed and include: 1. Tylenol p.r.n. 2. Aspirin 81 mg. 3. Cepacol lozenges. 4. Rocephin 2 g IV daily. 5. Sagastume syrup. 6. Vitamin D3. 7. Iron sulfate 320 mg daily. 8. Heparin 5000 subcu q.8h. 9. Toprol-XL. 10.Multivitamins. 11.Protonix. 12.Pravachol. 13.Vancomycin p.o. PHYSICAL EXAM: Patient is alert, oriented x3. Pulse is 72. Blood pressure 108/54. Respirations 18, temperature 97.6, pulse ox 98% on room air. HEENT: Conjunctivae normal. NECK: No JVD. CARDIOVASCULAR: S1, S2 muffled. RESPIRATORY: Breath sounds diminished in the bases. A few scattered rhonchi and crackles. ABDOMEN: Soft, nontender. LEGS are no edema. No swelling. CENTRAL NERVOUS SYSTEM: No focal deficits. LABS: WBC 23.2, hemoglobin 7.1, creatinine is 1.64. ASSESSMENT: 1. Acute urinary tract infection with sepsis present on admission with E coli from the blood cultures. 2. Persistent elevated WBC. 3. Syncope with hypotension multifactorial. 4. Severe hypotension, septic shock, present on admission. 5. Acute renal failure with acute tubular necrosis with acute prerenal renal failure. 6. History of hypertension. 7. Hyperlipidemia. 8. History of tubal ligation. 9. History of carpal tunnel syndrome. 10.Gastroesophageal reflux disease. 11.Deep vein thrombosis prophylaxis. RECOMMENDATIONS AND DISCUSSION: Recommend to continue current medications, management and symptomatic treatment. The patient CRP is still elevated and white count is also elevated. I reviewed the initial abdomen and pelvis CAT scan which showed only bilateral renal swelling and edema. I would recommend repeat CT scan of the abdomen and pelvis and as well as a 2D echo with Doppler. We will continue to monitor. I would also recommend hematology/oncology evaluation for the persistently elevated WBC, most are neutrophils and vancomycin has been initiated empirically by Infectious Disease. The most recent blood cultures are negative, which was on September 04. That means for the last three days. Once again, the prognosis is guarded because of multiple complex medical issues as listed above and I discussed with the patient who understands and agrees. Further recommendations to follow. Continue with DVT prophylaxis. MMODL / IJN: [id number] /
[2019-09-07] MEDS: PRAVASTATIN SODIUM 20 MG TAB PO SCH (22:20)
[2019-09-07] MEDS: ACETAMINOPHEN TAB 500 MG TAB PO PRN (22:31)
[2019-09-08] MEDS: CHERRY FLAVOR 60 ML BOTTLE PO PRN ×3 (00:24→12:34)
[2019-09-08] MEDS: HEPARIN SODIUM,PORCINE 5,000 UNIT/ML 1 ML VIAL SQ SCH ×4 (00:24→23:54)
[2019-09-08] MEDS: VANCOMYCIN ORAL SOLUTION 250 MG/5 ML BOTTLE PO SCH ×3 (00:24→12:34)
[2019-09-08] MEDS: CHOLECALCIFEROL 1,000 UNIT TAB PO SCH (08:15)
[2019-09-08] MEDS: FERROUS SULFATE 325 MG TAB PO SCH (08:15)
[2019-09-08] MEDS: METOPROLOL SUCCINATE (ER) 100 MG TAB.ER.24H PO SCH (08:15)
[2019-09-08] MEDS: PANTOPRAZOLE 40 MG TABLET PO SCH (08:15)
[2019-09-08] MEDS: ASPIRIN 81 MG PO SCH (08:15)
[2019-09-08] MEDS: MULTIVITAMINS, THERA 1 EACH TAB PO SCH (08:15)
[2019-09-08] MEDS: NYSTATIN 100,000 UNIT/ML SUSP 500,000 UNIT/5 ML CUP PO SCH ×4 (08:16→22:29)
--- NOTE | 2019-09-08 08:53 | P.PN ---
Subjective Patient is seen in follow-up for acute kidney injury. Renal function is improving. Denies chest pain or shortness of breath. Oral intake is fair. Admits to good urine output. Wants to go home. Vital signs are stable. General: The patient appeared well nourished and normally developed. HEENT: Head exam is unremarkable. Neck is without jugular venous distension. LUNGS: Lungs are clear to auscultation and percussion. Breath sounds decreased. HEART: Rate and Rhythm are regular. First and second heart sounds normal. No murmurs, rubs or gallops. ABDOMEN: Abdominal exam reveals normal bowel sounds. Non-tender and non- distended. No evidence of peritonitis. EXTREMITITES: No clubbing, cyanosis, or edema. Objective - Vital Signs Vital signs: Vital Signs Temp 98.1 F 09/08/19 05:00 Pulse 80 09/08/19 05:00 Resp 20 09/08/19 05:00 BP 135/75 09/08/19 05:00 Pulse Ox 97 09/08/19 05:00 Intake & Output 09/07/19 09/08/19 09/08/19 18:59 06:59 18:59 Intake Total 300 600 Output Total 400 Balance 300 200 Intake: Oral 300 600 Output: Urine 400 Other: Voiding Method Toilet Toilet # Voids 2 5 # Bowel Movements 0 - Labs CBC & Chem 7: 09/07/19 08:40 09/07/19 08:40 Labs: Abnormal Lab Results - Last 24 Hours (Table) 09/07/19 09/07/19 Range/Units 08:40 08:40 WBC 23.6 H (3.8-10.6) k/uL RBC 3.58 L (3.80-5.40) m/uL Hgb 11.1 L (11.4-16.0) gm/dL Hct 32.8 L (34.0-46.0) % Plt Count 565 H (150-450) k/uL Neutrophils # 22.3 H (1.3-7.7) k/uL Lymphocytes # 0.7 L (1.0-4.8) k/uL BUN 39 H (7-17) mg/dL Creatinine 1.64 H (0.52-1.04) mg/dL Glucose 139 H (74-99) mg/dL Calcium 7.8 L (8.4-10.2) mg/dL Magnesium 1.1 L (1.6-2.3) mg/dL Microbiology - Last 24 Hours (Table) 09/04/19 08:49 Blood Culture - Preliminary Blood No Growth after 72 hours Assessment and Plan Plan: Assessment: 1. Acute kidney injury secondary to ATN secondary to infection. Renal function improving. Creatinine 1.64 as of yesterday. UA benign. No evidence of hydronephrosis and kidney ultrasound. 2. E. coli bacteremia maintained on antibiotics. 3. Hypokalemia from poor oral intake. Patient was on diuretics prior to admission. Better. 4. Metabolic acidosis secondary to acute kidney injury. Resolved. 5. Hypomagnesemia from poor oral intake. Status post replacement. Plan: Remains off IV fluids. Encouraged oral intake. Continue to monitor renal function and urine output.
[2019-09-08 09:26] LABS: Basophils % (A) 0 %; Eosinophils # (A) 0.1 k/uL (0-0.7); Eosinophils % (A) 0 %; HCT 32.2 % (34.0-46.0); HGB 10.6 gm/dL (11.4-16.0); Lymphocytes # (A) 0.7 k/uL (1.0-4.8); Lymphocytes % (A) 4 %; MCH 30.5 pg (25.0-35.0); MCV 92.4 fL (80.0-100.0); Mean Platelet Volume 8.2; Monocytes # (A) 0.4 k/uL (0-1.0); Monocytes % (A) 2 %; Neutrophils # (A) 18.6 k/uL (1.3-7.7); Neutrophils % (A) 93 %; Platelet Count 618 k/uL (150-450); RBC 3.48 m/uL (3.80-5.40); RDW 13.2 % (11.5-15.5)
[2019-09-08 09:30] LABS: Calcium 8.2 mg/dL (8.4-10.2); Potassium 3.9 mmol/L (3.5-5.1)
[2019-09-08 14:08] VITALS: RESP 16
[2019-09-08 16:55] LABS: Protein, Total 5.4 g/dL (6.2-8.2)
[2019-09-08 16:57] LABS: % Iron Saturation 9.05 (12.00-45.00); Ferritin 495.3 ng/mL (10.0-291.0)
[2019-09-08] MEDS: CHOLESTYRAMINE (WITH SUGAR) 4 GM PACKET PO SCH (16:59)
--- NOTE | 2019-09-08 19:11 | PN ---
PROGRESS NOTE DATE OF SERVICE: 09/08/2019 REASON FOR FOLLOWUP: E coli bacteremia secondary to pyelonephritis. INTERVAL HISTORY: The patient is currently afebrile. The patient has been breathing comfortably. The patient denies having any chest pain or any cough. No nausea, no vomiting. No abdominal pain. She still has some diarrhea but no worsening. PHYSICAL EXAMINATION: On examination, her blood pressure is 116/70 with a pulse of 77, temperature 98.1. She is 98% on room air. General description is an elderly female up in the chair in no distress. RESPIRATORY SYSTEM: Unlabored breathing. Clear to auscultation anteriorly. HEART: S1, S2. Regular rate and rhythm. ABDOMEN: Soft. No tenderness. LABS: Hemoglobin is 10.6, hematocrit of 20,000. BUN of 35, creatinine is 1.43. DIAGNOSTIC IMPRESSION AND PLAN: Patient with Escherichia coli bacteremia. Source is pyelonephritis in this patient who did have elevated white count but no other clinical focus of infection. Stool for C difficile came back negative. CT of abdomen and pelvis did not show any evidence of colitis, either. Patient is on Rocephin. Plan to finish therapy with oral Cipro. Daughter was at the bedside. Her questions and concerns were answered. MMODL / IJN: [id number] /
--- NOTE | 2019-09-08 19:33 | P.CONS ---
History of Present Illness - Reason for Consult Consult date: 09/08/19 Leukocytosis, thrombocytosis and anemia - History of Present Illness The patient is 73-year-old white female with overall well controlled medical problems. The patient had presented to her PCP on 09/01/19 with complains of fever, chills and generalized weakness and malaise. She was also having some increased frequency of urination. She was felt to have a probable UTI, and was started on antibiotics and her PCPs office. However as symptoms persisted she came into the emergency room and was found to have acute renal failure with creatinine in the 3-4 range while baseline was normal in 10/29. In addition she had elevation of 4 WBC the 20,000 range and platelets in the 600 range, while baseline in 12/27 was again normal. Hemoglobin during this admission showed a gradual drop into the 10 range, with baseline again being normal. Consult was placed for further evaluation and recommendations. She denied any prior history of blood related problems. No history of any obvious bleeding. Hospital workup revealed blood cultures positive for E. coli. Initial urinalysis was abnormal though urine culture ultimately came back negative. She also had CT imaging of the abdomen and pelvis which raised the possibility of bilateral hydronephrosis. However subsequent studies including repeat computed tomography scan ultrasound did not show definite hydronephrosis though was recent imaging did show possible "swelling" of the kidneys Review of Systems Constitutional: Reports chills, Reports fatigue, Reports fever, Reports poor appetite, Reports weakness Eyes: denies blurred vision, denies pain Ears: deny: decreased hearing, ear discharge, earache, tinnitus Ears, nose, mouth and throat: Denies headache, Denies sore throat Cardiovascular: Reports dyspnea on exertion Respiratory: Denies cough Gastrointestinal: Denies abdominal pain, Denies diarrhea, Denies nausea, Denies vomiting Genitourinary: Reports urinary frequency Musculoskeletal: Reports muscle weakness Integumentary: Denies pruritus, Denies rash Neurological: Reports weakness Psychiatric: Denies anxiety, Denies depression Endocrine: Reports fatigue Hematologic/Lymphatic: Reports as per HPI Past Medical History Past Medical History: Hyperlipidemia, Hypertension History of Any Multi-Drug Resistant Organisms: None Reported Past Surgical History: Tubal Ligation Additional Past Surgical History / Comment(s): carpel tunnel, radiofrequency ablation of nerves- low back Past Psychological History: No Psychological Hx Reported Smoking Status: Never smoker Past Alcohol Use History: None Reported Past Drug Use History: None Reported Medications and Allergies Home Medications Medication Instructions Recorded Confirmed Type Acetaminophen [Tylenol Extra 1,000 mg PO BID PRN 09/01/19 09/01/19 History Strength] Acetaminophen/Diphenhydramine 1 tab PO HS 09/01/19 09/01/19 History [Tylenol Pm Ex-Strength Caplet] Aspirin EC [Ecotrin Low Dose] 81 mg PO DAILY 09/01/19 09/01/19 History Atenolol/Chlorthalidone 1 tab PO DAILY 09/01/19 09/01/19 History [Atenolol-Chlorthalidone 100-25] Calcium Carbonate [Tums] 1,000 mg PO DAILY 09/01/19 09/01/19 History Celecoxib [CeleBREX] 100 mg PO DAILY 09/01/19 09/01/19 History Cholecalciferol [Vitamin D3 (25 1,000 unit PO DAILY 09/01/19 09/01/19 History Mcg = 1000 Iu)] Ciprofloxacin HCl [Cipro] 500 mg PO Q12HR 09/01/19 09/01/19 History Ferrous Sulfate [Slow Release Iron] 140 mg PO DAILY 09/01/19 09/01/19 History Glucosam/Seng-Msm1/C/Garrett/Bosw 1 tab PO DAILY 09/01/19 09/01/19 History [Xibiaaqnuib-Adqjzmmtexp-BCE Tb] Krill Oil 1,200mg 1 cap PO DAILY 09/01/19 09/01/19 History Lactobacillus Acidophilus 1 tab PO DAILY 09/01/19 09/01/19 History [Acidophilus] Loratadine [Claritin] 10 mg PO DAILY 09/01/19 09/01/19 History Multivitamins, Thera [Multivitamin 1 tab PO DAILY 09/01/19 09/01/19 History (formulary)] Nystatin 100,000 Unit/ml Susp 5 ml PO QID 09/01/19 09/01/19 History [Mycostatin Oral Susp] Omeprazole 20 mg PO DAILY 09/01/19 09/01/19 History Pravastatin Sodium [Pravachol] 20 mg PO HS 09/01/19 09/01/19 History Ubidecarenone [Co Q-10] 100 mg PO DAILY 09/01/19 09/01/19 History Allergies Allergy/AdvReac Type Severity Reaction Status Date / Time erythromycin base Allergy Unknown Verified 09/01/19 22:02 Penicillins Allergy Unknown Verified 09/01/19 22:02 Physical Exam Vitals: Vital Signs Temp Pulse Resp BP BP Pulse Ox 09/08/19 13:25 98.1 F 77 16 116/70 98 09/08/19 05:00 98.1 F 80 20 135/75 97 09/07/19 21:30 99.1 F 84 20 136/73 98 Intake and Output 09/08/19 09/08/19 09/08/19 06:59 14:59 22:59 Intake Total 100 1000 Output Total 400 Balance -300 1000 Intake: Oral 100 1000 Output: Urine 400 Other: Voiding Method Toilet Toilet Bedside Commode Bedside Commode # Voids 5 4 # Bowel Movements 0 5 - Constitutional General appearance: no acute distress - EENT Eyes: EOMI, PERRLA ENT: hearing grossly normal, normal oropharynx - Neck Neck: no lymphadenopathy Thyroid: bilateral: normal size - Respiratory Respiratory: bilateral: CTA - Cardiovascular Rhythm: regular Heart sounds: normal: S1, S2 - Gastrointestinal General gastrointestinal: normal bowel sounds, soft - Integumentary Integumentary: normal - Neurologic Neurologic: CNII-XII intact - Musculoskeletal Musculoskeletal: generalized weakness, strength equal bilaterally - Psychiatric Psychiatric: A&O x's 3, appropriate affect Results CBC & Chem 7: 09/08/19 08:47 09/08/19 08:47 Labs: Abnormal Lab Results - Last 24 Hours (Table) 09/08/19 09/08/19 09/08/19 Range/Units 08:36 08:36 08:47 WBC 20.0 H (3.8-10.6) k/uL RBC 3.48 L (3.80-5.40) m/uL Hgb 10.6 L (11.4-16.0) gm/dL Hct 32.2 L (34.0-46.0) % Plt Count 618 H (150-450) k/uL Neutrophils # 18.6 H (1.3-7.7) k/uL Lymphocytes # 0.7 L (1.0-4.8) k/uL BUN (7-17) mg/dL Creatinine (0.52-1.04) mg/dL Glucose (74-99) mg/dL Calcium (8.4-10.2) mg/dL Iron 19 L (50-170) ug/dL TIBC 210 L (228-460) ug/dL % Saturation 9.05 L (12.00-45.00) Ferritin 495.3 H (10.0-291.0) ng/mL Total Protein (PEP) 5.4 L (6.2-8.2) g/dL Vitamin B12 976.0 H (200.0-944.0) pg/mL Rheumatoid Factor 28 H (0-15) IU/mL 09/08/19 Range/Units 08:47 WBC (3.8-10.6) k/uL RBC (3.80-5.40) m/uL Hgb (11.4-16.0) gm/dL Hct (34.0-46.0) % Plt Count (150-450) k/uL Neutrophils # (1.3-7.7) k/uL Lymphocytes # (1.0-4.8) k/uL BUN 35 H (7-17) mg/dL Creatinine 1.43 H (0.52-1.04) mg/dL Glucose 191 H (74-99) mg/dL Calcium 8.2 L (8.4-10.2) mg/dL Iron (50-170) ug/dL TIBC (228-460) ug/dL % Saturation (12.00-45.00) Ferritin (10.0-291.0) ng/mL Total Protein (PEP) (6.2-8.2) g/dL Vitamin B12 (200.0-944.0) pg/mL Rheumatoid Factor (0-15) IU/mL Microbiology - Last 24 Hours (Table) 09/04/19 08:49 Blood Culture - Preliminary Blood No Growth after [address] scan - abdomen: report reviewed CT scan - pelvis: report reviewed US - abdomen: report reviewed Assessment and Plan (1) Leucocytosis Narrative/Plan: This appears to be a new issue for the patient as noted in the HPI. WBC is moderately elevated in the 20,000 range, with predominant neutrophils. Differential is otherwise normal. Given the patient's clinical presentation, this is most likely guest service representative of a mild reactive phenomenon. Clinically at this time a primary myeloproliferative disorder appears to be unlikely. - For additional workup I will check iron studies, as well as autoimmune and inflammatory markers. The patient was advised that the WBC would be expected to decline spontaneously as her acute condition resolves. I would recommend repeating CBC as an outpatient in a few weeks to check for normalization Current Visit: Yes Status: Acute Code(s): D72.829 - ELEVATED WHITE BLOOD CELL COUNT, UNSPECIFIED SNOMED Code(s): 804213597 (2) Thrombocytosis Narrative/Plan: The patient also has moderate platelet count elevation, which is also fairly common secondary phenomenon in cases of acute inflammation. Therefore, as with the WBC, secondary condition is most likely with primary MPD unlikely. Therefore would recommend the same management that his follow-up as an outpatient once acute condition resolves. Workup for MPD only if there is persistent elevation of counts with no obvious explanation, even after her acute condition resolves. Current Visit: Yes Status: Acute Code(s): D47.3 - ESSENTIAL (HEMORRHAGIC) THROMBOCYTHEMIA SNOMED Code(s): 4984064 (3) Anemia Narrative/Plan: The patient has mild anemia, that appears to have developed mostly during this admission. Hemoglobin is well within a safe range. Anemia workup has been ordered. Continue to monitor levels at this time. Further recommendations depending on results of the anemia workup. Current Visit: Yes Status: Acute Code(s): D64.9 - ANEMIA, UNSPECIFIED SNOMED Code(s): 642567594 (4) Sepsis Narrative/Plan: At this time I source appears to be most likely. The patient is starting to feel better. Defer to the admitting service and other consultants for management Current Visit: Yes Status: Acute Code(s): A41.9 - SEPSIS, UNSPECIFIED ORGANISM SNOMED Code(s): 92485859
[2019-09-08] MEDS: CIPROFLOXACIN HCL 500 MG TAB PO SCH (21:56)
[2019-09-08] MEDS: PRAVASTATIN SODIUM 20 MG TAB PO SCH (21:56)
--- NOTE | 2019-09-09 01:38 | PN ---
PROGRESS NOTE DATE OF SERVICE: 09/08/2019 This 73-year-old woman was admitted with UTI with sepsis. She had E coli grown from the blood cultures. The WBC seems persistently elevated at 20 at this time. The patient was also evaluated by Infectious Disease and Nephrology. Dr. Singleton saw the patient today and recommended outpatient followup at this time. No chest pain. No palpitations. No fever. PHYSICAL EXAMINATION: Alert and oriented x3. Pulse is 80, blood pressure 130/70, respiration 20, temperature 98.1, pulse ox 97% on room air. HEENT: Conjunctivae normal. NECK: No jugular venous distention. CARDIOVASCULAR SYSTEM: S1, S2 muffled. RESPIRATORY SYSTEM: Breath sounds diminished at the bases. No rhonchi. No crackles. ABDOMEN: Soft, non-tender. LEGS: No edema. No swelling. NERVOUS SYSTEM: No focal deficit. LABS: WBC 20, hemoglobin 10.6 and sodium 132, potassium, potassium 3.9. ASSESSMENT: 1. Acute urinary tract infection with sepsis with Escherichia coli from the blood cultures. 2. Persistently elevated white count. 3. Syncope with hypotension, multifactorial, present on admission. 4. Severe hypotension, septic shock, present on admission, with severe sepsis. 5. Acute renal failure with acute tubular necrosis, prerenal acute renal failure. 6. History of hypertension. 7. Hyperlipidemia. 8. History of tubal ligation. 9. History of carpal tunnel syndrome. 10.Gastroesophageal reflux disease. 11.History of deep venous thrombosis prophylaxis. RECOMMENDATIONS AND DISCUSSION: I recommend to continue current medications, continue with the monitoring, symptomatic treatment. Monitor creatinine closely. Otherwise, infectious disease and hematology/oncology input appreciated. C-reactive protein is elevated. Will continue to monitor. Two-D echo results are awaited at this time. Guarded prognosis. Further recommendations to follow. MMODL / IJN: [id number] /
[2019-09-09 05:36] VITALS: BP 117/61; PULSE 77; TEMP 98.2
--- NOTE | 2019-09-09 07:09 | ECHOF ---
Referral Reason:high wbc MEASUREMENTS -------- HEIGHT: 149.9 cm WEIGHT: 68.0 kg BP: 135/75 RVIDd: 2.7 cm (< 3.3) IVSd: 1.3 cm (0.6 - 1.1) LVIDd: 4.3 cm (3.9 - 5.3) LVPWd: 1.2 cm (0.6 - 1.1) IVSs: 1.4 cm LVIDs: 3.4 cm LVPWs: 1.5 cm LA Diam: 4.3 cm (2.7 - 3.8) LAESV Index (A-L): 31.26 ml/m Ao Diam: 2.7 cm (2.0 - 3.7) AV Cusp: 1.7 cm (1.5 - 2.6) MV EXCURSION: 15.792 mm (> 18.000) MV EF SLOPE: 66 mm/s (70 - 150) EPSS: 0.7 cm MV E Janes: 1.11 m/s MV DecT: 259 ms MV A Janes: 1.27 m/s MV E/A Ratio: 0.87 AV maxP.05 mmHg AV meanP.22 mmHg AR PHT: 428 ms RAP: 5.00 mmHg RVSP: 37.09 mmHg FINDINGS -------- Sinus rhythm. This was a technically good study. The left ventricular size is normal. There is mild concentric left ventricular hypertrophy. Overa ll left ventricular systolic function is normal with, an EF between 55 - 60 %. The right ventricle is normal in size. LA is midly dilated 29-33ml/m2. The right atrial size is normal. Interatrial and interventricular septum intact. There is mild aortic valve sclerosis. There is mild aortic regurgitation. There is mild aortic st enosis present. Peak/mean gradient across the Aortic Valve is 17.05mmHg / 8.22mmHg. The mitral valve leaflets are mildly thickened. Mild mitral regurgitation is present. Mild tricuspid regurgitation present. There is mild pulmonary hypertension. The right ventricular systolic pressure, as measured by Doppler, is 37.09mmHg. Trace/mild (physiologic) pulmonic regurgitation. The aortic root size is normal. Normal inferior vena cava with normal inspiratory collapse consistent with estimated right atrial pre ssure of 5 mmHg. There is no pericardial effusion. CONCLUSIONS -------- 1. Sinus rhythm. 2. This was a technically good study. 3. The left ventricular size is normal. 4. There is mild concentric left ventricular hypertrophy. 5. Overall left ventricular systolic function is normal with, an EF between 55 - 60 %. 6. 7. LA is midly dilated 29-33ml/m2. 8. There is mild aortic valve sclerosis. 9. There is mild aortic regurgitation. 10. There is mild aortic stenosis present. 11. Peak/mean gradient across the Aortic Valve is 17.05mmHg / 8.22mmHg. 12. Mild mitral regurgitation is present. 13. Mild tricuspid regurgitation present. 14. There is mild pulmonary hypertension. 15. Trace/mild (physiologic) pulmonic regurgitation. 16. There is no pericardial effusion. DIE MACHINE OPERATOR: Tamela Montilla RDCS
[2019-09-09] MEDS: NYSTATIN 100,000 UNIT/ML SUSP 500,000 UNIT/5 ML CUP PO SCH (08:08)
[2019-09-09] MEDS: MULTIVITAMINS, THERA 1 EACH TAB PO SCH (08:09)
[2019-09-09] MEDS: CHOLECALCIFEROL 1,000 UNIT TAB PO SCH (08:09)
[2019-09-09] MEDS: PANTOPRAZOLE 40 MG TABLET PO SCH (08:09)
[2019-09-09] MEDS: CIPROFLOXACIN HCL 500 MG TAB PO SCH (08:09)
[2019-09-09] MEDS: ASPIRIN 81 MG PO SCH (08:09)
[2019-09-09] MEDS: HEPARIN SODIUM,PORCINE 5,000 UNIT/ML 1 ML VIAL SQ SCH (08:09)
[2019-09-09] MEDS: METOPROLOL SUCCINATE (ER) 100 MG TAB.ER.24H PO SCH (08:09)
[2019-09-09] MEDS: FERROUS SULFATE 325 MG TAB PO SCH (08:10)
[2019-09-09 09:42] LABS: Basophils % (A) 0 %; Eosinophils # (A) 0.1 k/uL (0-0.7); Eosinophils % (A) 1 %; HCT 30.8 % (34.0-46.0); HGB 9.9 gm/dL (11.4-16.0); Lymphocytes % (A) 7 %; MCH 29.9 pg (25.0-35.0); MCV 93.4 fL (80.0-100.0); Mean Platelet Volume 8.4; Monocytes # (A) 0.5 k/uL (0-1.0); Monocytes % (A) 3 %; Neutrophils # (A) 12.9 k/uL (1.3-7.7); Neutrophils % (A) 89 %; Platelet Count 587 k/uL (150-450); RDW 13.3 % (11.5-15.5); WBC 14.6 k/uL (3.8-10.6)
[2019-09-09 09:55] LABS: Free Kappa Lt Chain Qnt, Serum 4.18 mg/dL (0.33-1.94)
[2019-09-09] MEDS: CHOLESTYRAMINE (WITH SUGAR) 4 GM PACKET PO SCH (10:31)
[2019-09-09 11:36] VITALS: BMI 32.7
--- NOTE | 2019-09-09 12:57 | PN ---
PROGRESS NOTE DATE OF SERVICE: 09/09/2019 REASON FOR FOLLOWUP: E. coli bacteremia secondary to right-sided pyelonephritis. INTERVAL HISTORY: The patient is currently afebrile. Patient is breathing comfortably. The patient denies having any chest pain, no cough. No nausea, no vomiting. No abdominal pain, no diarrhea. PHYSICAL EXAMINATION: Blood pressure 117/60 with a pulse of 77, temperature 98.2, she is 96% on room air. General description is a middle-aged female, up in the chair in no distress. RESPIRATORY SYSTEM: Unlabored breathing, clear to auscultation anteriorly. HEART: S1, S2. Regular rate and rhythm. ABDOMEN: Soft, no tenderness. LABS: Hemoglobin 9.9, white count 14.6. Blood culture has been negative. DIAGNOSTIC IMPRESSION/PLAN: 1. Patient with an Escherichia coli bacteremia, source with pyelonephritis. Patient white count showed a downward trend. Patient twice a day for 2 weeks with close outpatient followup. 2. Diarrhea, improving. as needed and not to take at the same time as the other medication. MMODL / IJN: [id number] /
--- NOTE | 2019-09-09 13:42 | P.PN ---
Subjective Progress Note Date: 09/09/19 Follow-up of acute kidney injury. Objective - Vital Signs Vital signs: Vital Signs Temp 98.2 F 09/09/19 05:35 Pulse 77 09/09/19 05:35 Resp 16 09/09/19 05:35 BP 117/61 09/09/19 05:35 Pulse Ox 96 09/09/19 05:35 Intake & Output 09/08/19 09/09/19 09/09/19 18:59 06:59 18:59 Intake Total 1000 400 Balance 1000 400 Weight 68.583 kg Intake: Oral 1000 400 Other: Voiding Method Toilet Toilet Bedside Commode Bedside Commode # Voids 4 5 # Bowel Movements 5 - Exam No acute distress S1-S2 heard Lungs clear No edema - Labs CBC & Chem 7: 09/09/19 09:02 09/08/19 08:47 Labs: Abnormal Lab Results - Last 24 Hours (Table) 09/08/19 09/08/19 09/08/19 Range/Units 08:36 08:36 08:36 WBC (3.8-10.6) k/uL RBC (3.80-5.40) m/uL Hgb (11.4-16.0) gm/dL Hct (34.0-46.0) % Plt Count (150-450) k/uL Neutrophils # (1.3-7.7) k/uL Iron 19 L (50-170) ug/dL TIBC 210 L (228-460) ug/dL % Saturation 9.05 L (12.00-45.00) Ferritin 495.3 H (10.0-291.0) ng/mL Total Protein (PEP) 5.4 L (6.2-8.2) g/dL Vitamin B12 976.0 H (200.0-944.0) pg/mL RBC Folate 1,161 H (280 - 791) ng/mL Rheumatoid Factor 28 H (0-15) IU/mL Free [place] LC, Quant 4.18 H (0.33-1.94) mg/dL Free Lambda LC, Quant 3.44 H (0.57-2.63) mg/dL 09/09/19 Range/Units 09:02 WBC 14.6 H (3.8-10.6) k/uL RBC 3.30 L (3.80-5.40) m/uL Hgb 9.9 L (11.4-16.0) gm/dL Hct 30.8 L (34.0-46.0) % Plt Count 587 H (150-450) k/uL Neutrophils # 12.9 H (1.3-7.7) k/uL Iron (50-170) ug/dL TIBC (228-460) ug/dL % Saturation (12.00-45.00) Ferritin (10.0-291.0) ng/mL Total Protein (PEP) (6.2-8.2) g/dL Vitamin B12 (200.0-944.0) pg/mL RBC Folate (280 - 791) ng/mL Rheumatoid Factor (0-15) IU/mL Free [place] LC, Quant (0.33-1.94) mg/dL Free Lambda LC, Quant (0.57-2.63) mg/dL Microbiology - Last 24 Hours (Table) 09/04/19 08:49 Blood Culture - Preliminary Blood No Growth after 120 hours Assessment and Plan Assessment: #1 nonoliguric acute kidney injury secondary to septic ATN. Creatinine improving. #2 E coli bacteremia #3 metabolic acidosis resolved. #4 electrolyte abnormality resolved. Plan: #1 renal function stable. #2 avoid nephrotoxic agents and hypotensive episodes #3 stable from nephrology for discharge to be followed up in the clinic in 2-3 weeks.
--- NOTE | 2019-09-10 09:35 | DS ---
DISCHARGE SUMMARY DATE OF SERVICE: 09/09/2019. FINAL DIAGNOSES: 1. Acute urinary tract infection with sepsis with E coli from blood cultures. 2. Persistently elevated WBC. 3. Syncope with hypotension, multifactorial present on admission. 4. Severe hypotension with septic shock present on admission with severe sepsis. 5. Acute renal failure with acute tubular necrosis with prerenal acute renal failure. 6. History of hypertension. 7. Hyperlipidemia. 8. History of tubal ligation. 9. History of carpal tunnel syndrome. 10.Gastroesophageal reflux disease. 11.History of deep vein thrombosis. DISCHARGE DISPOSITION: The patient will be discharged in stable condition with guarded prognosis. Total time taken 35 minutes. HISTORY OF PRESENT ILLNESS: This 73-year-old woman with a past medical history of multiple medical problems admitted to the hospital with severe sepsis, septic shock and multiple medical issues, as mentioned, E coli grown from the culture. However the white count remained slightly elevated around 20 and seen by multiple consultants, Dr. Miller and Dr. Singleton, thought to be reactive in nature. Otherwise CT scan of the abdomen and pelvis did not show severe acute abnormality. The patient improved significantly. Creatinine stabilized 1.43. The cultures as listed. Most recent blood cultures negative. A surface transthoracic 2D echocardiography showed ejection fraction 55-60 percent and mild valvular abnormalities. The patient discharged in stable condition with guarded prognosis. On exam, vitals are stable. Cardio system: S1, S2. Abdomen soft. Nervous system: No focal deficits. DISCHARGE ADVICE AND MEDICATIONS: 1. Diet is cardiac diet. 2. Activity limited until followup. 3. Follow up with Dr. Richardson in 2-3 days. 4. Follow up with Dr. Castillo and Dr. Singleton as recommended. DISCHARGE MEDICATIONS: 1. Lactobacillus acidophilus 1 p.o. daily. 2. Atenolol chlorthalidone 1 tab. 3. Celebrex 100 mg p.o. daily. 4. Claritin 10 mg p.o. daily. 5. Coenzyme-Q 100 mg p.o. daily. 6. Ecotrin 81 mg p.o. daily. 7. Glucosamine 1 tablet p.o. daily. 8. Krill oil 1 tab 1 p.o. daily. 9. Multivitamins one p.o. daily. 10.Nystatin 5 mL p.o. q.i.d. 11.Omeprazole 20 mg p.o. daily. 12.Pravachol 20 mg p.o. q.h.s. 13.Iron sulfate 140 mg p.o. daily. 14.Tums 1000 mg p.o. daily. 15.Tylenol p.r.n. 16.Vitamin D3 1000 daily. 17.Cipro 500 mg p.o. b.i.d. 18.Cholestyramine 4 g p.o. b.i.d. 19.Toprol-XL 100 mg p.o. daily. 20.Follow with Dr. Miller as recommended from Infectious Disease. Once again the patient being discharged in stable condition with a guarded prognosis. MMODL / IJN: [id number] /
[2019-09-11 11:31] LABS: Albumin 2.15 g/dL (3.80-4.90); Gamma Globulin 0.85 g/dL (0.70-1.50)
[2019-09-12 08:41] LABS: Methylmalonic Acid 0.63 umol/L (<0.40)
== END 2019-09-09 14:17 | disposition home or self-care (01) | DRG 871 ==
LOC: EC 21:22 → 6NMEDSUR 23:20
PROVIDERS: ADMIT Hospitalist; ATTEND Hospitalist
DX: A41.51 Sepsis due to Escherichia coli [E. coli] (principal); N17.0 Acute kidney failure with tubular necrosis; R65.21 Severe sepsis with septic shock; E87.1 Hypo-osmolality and hyponatremia; E87.2 Acidosis; N10 Acute pyelonephritis; E78.5 Hyperlipidemia, unspecified; E83.42 Hypomagnesemia; E86.1 Hypovolemia; I10 Essential (primary) hypertension; E87.6 Hypokalemia; G56.00 Carpal tunnel syndrome, unspecified upper limb; K21.9 Gastro-esophageal reflux disease without esophagitis; R19.7 Diarrhea, unspecified; D64.9 Anemia, unspecified; D69.6 Thrombocytopenia, unspecified; T50.2X5A Adverse effect of carbonic-anhydrase inhibitors, benzothiadiazides and other diuretics, initial encounter; Z86.718 Personal history of other venous thrombosis and embolism; Z79.82 Long term (current) use of aspirin; Z79.1 Long term (current) use of non-steroidal anti-inflammatories (NSAID); Z98.51 Tubal ligation status; Z87.440 Personal history of urinary (tract) infections; Z79.899 Other long term (current) drug therapy; Z88.1 Allergy status to other antibiotic agents; Z88.0 Allergy status to penicillin
CPT/HCPCS: 36415; 70450; 71250; 72125; 74176; 76770; 80048; 80053; 81001; 82150; 82550; 82607; 82728; 82747; 83540; 83550; 83605; 83690; 83735; 83883; 83921; 84132; 84165; 85025; 85045; 86038; 86140; 86334; 86431; 87040; 87077; 87086; 87186; 87205; 87324; 93005; 93306; 96361; 96374; 99291

== ENCOUNTER 2022-11-19 11:31 | Emergency (ER) | payer MEDICARE, OTHER ==
[2022-11-19 11:52] VITALS: RESP 18; TEMP 98.3
--- NOTE | 2022-11-19 12:25 | ED ---
General Adult HPI - General Chief complaint: Recheck/Abnormal Lab/Rx Stated complaint: chest pain high blood pressure Time Seen by Provider: 11/19/22 11:50 Source: patient, RN notes reviewed, old records reviewed Mode of arrival: ambulatory Limitations: no limitations - History of Present Illness Initial comments: This is a 76-year-old female presents emergency Department complaining that her blood pressures been a radical last few days. Patient states she took an extra atenolol the middle the night and had some reason her blood pressure is a little improved at this time per patient denies any shortness of breath or difficulty breathing. Patient denies any chest pain or palpitations. Patient states she has a headache but it's her normal headache she has every day is no worse than normal. Patient denies any blurred vision. Patient denies any nausea vomiting diarrhea. Patient denies any fever chills. Patient denies any swelling to the legs or calf tenderness. Patient denies any recent medication changes. Patient also complains of some suprapubic tenderness which she states is typical for her when she has a urinary tract infection - Related Data Home Medications Medication Instructions Recorded Confirmed Acetaminophen [Tylenol Extra 1,000 mg PO BID PRN 09/01/19 09/01/19 Strength] Acetaminophen/Diphenhydramine 1 tab PO HS 09/01/19 09/01/19 [Tylenol Pm Ex-Strength Caplet] Aspirin EC [Ecotrin Low Dose] 81 mg PO DAILY 09/01/19 09/01/19 Atenolol/Chlorthalidone 1 tab PO DAILY 09/01/19 09/01/19 [Atenolol/Chlorthalidone 100-25] Calcium Carbonate [Tums] 1,000 mg PO DAILY 09/01/19 09/01/19 Celecoxib [CeleBREX] 100 mg PO DAILY 09/01/19 09/01/19 Cholecalciferol [Vitamin D3 (25 1,000 unit PO DAILY 09/01/19 09/01/19 Mcg = 1000 Iu)] Ferrous Sulfate [Slow Release Iron] 140 mg PO DAILY 09/01/19 09/01/19 Glucosam/Seng-Msm1/C/Garrett/Bosw 1 tab PO DAILY 09/01/19 09/01/19 [Yinzidnkige-Yxsggvwqiuu-JLV Tb] Krill Oil 1,200mg 1 cap PO DAILY 09/01/19 09/01/19 Lactobacillus Acidophilus 1 tab PO DAILY 09/01/19 09/01/19 [Acidophilus] Loratadine [Claritin] 10 mg PO DAILY 09/01/19 09/01/19 Multivitamins, Thera [Multivitamin 1 tab PO DAILY 09/01/19 09/01/19 (formulary)] Nystatin 100,000 Unit/ml Susp 5 ml PO QID 09/01/19 09/01/19 [Mycostatin Oral Susp] Omeprazole 20 mg PO DAILY 09/01/19 09/01/19 Pravastatin Sodium [Pravachol] 20 mg PO HS 09/01/19 09/01/19 Ubidecarenone [Co Q-10] 100 mg PO DAILY 09/01/19 09/01/19 Previous Rx's Medication Instructions Recorded Cholestyramine (with Sugar) 4 gm PO BID@1000,1800 packet 09/09/19 [Questran Packet] Ciprofloxacin HCl [Cipro] 500 mg PO Q12HR #28 tablet 09/09/19 Metoprolol Succinate (ER) [Toprol 100 mg PO DAILY #30 tab.er.24h 09/09/19 XL] Allergies Allergy/AdvReac Type Severity Reaction Status Date / Time erythromycin base Allergy Unknown Verified 11/19/22 11:52 Penicillins Allergy Unknown Verified 11/19/22 11:52 Review of Systems ROS Statement: Those systems with pertinent positive or pertinent negative responses have been documented in the HPI. ROS Other: All systems not noted in ROS Statement are negative. Past Medical History Past Medical History: Hyperlipidemia, Hypertension History of Any Multi-Drug Resistant Organisms: None Reported Past Surgical History: Tubal Ligation Additional Past Surgical History / Comment(s): carpel tunnel, radiofrequency ablation of nerves- low back Past Psychological History: No Psychological Hx Reported Smoking Status: Never smoker Past Alcohol Use History: Occasional Past Drug Use History: None Reported General Exam - General Exam Comments Initial Comments: GENERAL: Patient is well-developed and well-nourished. Patient is nontoxic and well- hydrated and is in no acute distress. ENT: Neck is soft and supple. No significant lymphadenopathy is noted. Oropharynx is clear. Moist mucous membranes. Neck has full range of motion without eliciting any pain. EYES: The sclera were anicteric and conjunctiva were pink and moist. Extraocular movements were intact and pupils were equal round and reactive to light. Eyelids were unremarkable. PULMONARY: Unlabored respirations. Good breath sounds bilaterally. No audible rales rhonchi or wheezing was noted. CARDIOVASCULAR: There is a regular rate and rhythm without any murmurs gallops or rubs. ABDOMEN: Patient's abdomen is soft nontender SKIN: Skin is clear with no lesions or rashes and otherwise unremarkable. NEUROLOGIC: Patient is alert and oriented x3. Cranial nerves II through XII are grossly intact. Motor and sensory are also intact. Normal speech, volume and content. Symmetrical smile. MUSCULOSKELETAL: Normal extremities with adequate strength and full range of motion. No lower extremity swelling or edema. No calf tenderness. LYMPHATICS: No significant lymphadenopathy is noted PSYCHIATRIC: Normal psychiatric evaluation. Limitations: no limitations Course Vital Signs 11/19/22 11/19/22 11/19/22 11:48 12:05 12:44 Temperature 98.3 F Pulse Rate 78 72 69 Respiratory 18 18 Rate Blood Pressure 206/96 158/104 187/81 O2 Sat by Pulse 97 99 99 Oximetry 11/19/22 11/19/22 13:01 13:32 Temperature Pulse Rate 68 70 Respiratory 18 18 Rate Blood Pressure 184/81 173/83 O2 Sat by Pulse 97 99 Oximetry Medical Decision Making - Medical Decision Making EKG is interpreted by myself. EKG shows a sinus rhythm at 67 bpm OK interval 190 QRS is 90 QT interval 470 QTC is 423 per patient's EKG shows no ST segment elevation or depression. Was pt. sent in by a medical professional or institution (, PA, HAND SALTER, urgent care, hospital, or senior care...) When possible be specific @ -No Did you speak to anyone other than the patient for history (EMS, parent, family, police, friend...)? What history was obtained from this source @ -Daughter gave quite a bit of the history Did you review nursing and triage notes (agree or disagree)? Why? @ -I reviewed and agree with nursing and triage notes Were old charts reviewed (outside hosp., previous admission, EMS record, old EKG, old radiological studies, urgent care reports/EKG's, senior care records)? Report findings @ -I reviewed prior labs. Differential Diagnosis (chest pain, altered mental status, abdominal pain women, abdominal pain men, vaginal bleeding, weakness, fever, dyspnea, syncope, headache, dizziness, GI bleed, back pain, seizure, CVA, palpatations, mental health, musculoskeletal)? @ -Urinary tract infection, hypertension, EKG interpreted by me (3pts min.). @ -As above X-rays interpreted by me (1pt min.). @ -Chest x-ray was interpreted by myself shows no acute abnormality CT interpreted by me (1pt min.). @ -None done U/S interpreted by me (1pt. min.). @ -None done What testing was considered but not performed or refused? (CT, X-rays, U/S, labs)? Why? @ -None What meds were considered but not given or refused? Why? @ -None Did you discuss the management of the patient with other professionals (professionals i.e. , PA, HAND SALTER, lab, RT, psych nurse, sr. social media & mobile manager, director of strategic initiatives, teacher, strategic debriefing officer, social work case manager)? Give summary @ -No Was smoking cessation discussed for >3mins.? @ -No Was critical care preformed (if so, how long)? @ -No Were there social determinants of health that impacted care today? How? (Homelessness, low income, unemployed, alcoholism, drug addiction, transportation, low edu. Level, literacy, decrease access to med. care, assisted, rehab)? @ -No Was there de-escalation of care discussed even if they declined (Discuss DNR or withdrawal of care, Hospice)? DNR status @ -No What co-morbidities impacted this encounter? (DM, HTN, Smoking, COPD, CAD, Cancer, CVA, ARF, Chemo, Hep., AIDS, mental health diagnosis, sleep apnea, morb id obesity)? @ -None Was patient admitted / discharged? Hospital course, mention meds given and route, prescriptions, significant lab abnormalities, going to OR and other pertinent info. @ -Patient came in her blood pressure was mildly elevated so she got hydralazine in the emergency department. Patient also was tested for urinary tract infection Undiagnosed new problem with uncertain prognosis? @ -No Drug Therapy requiring intensive monitoring for toxicity (Heparin, Nitro, Insuli n, Cardizem)? @ -No Were any procedures done? @ -No Diagnosis/symptom? @ -Hypertension urgency Acute, or Chronic, or Acute on Chronic? @ -Acute Uncomplicated (without systemic symptoms) or Complicated (systemic symptoms)? @ -Complicated Side effects of treatment? @ -No Exacerbation, Progression, or Severe Exacerbation? @ -No Poses a threat to life or bodily function? How? (Chest pain, USA, ID, pneumonia, PE, COPD, DKA, ARF, appy, cholecystitis, CVA, Diverticulitis, Homicidal, Suicidal, threat to staff... and all critical care pts) @ -Yes potential end organ dysfunction with excessive blood pressure - Lab Data Result diagrams: 11/19/22 12:32 11/19/22 12:32 Lab Results 11/19/22 11/19/22 11/19/22 Range/Units 12:32 12:32 12:32 WBC 8.0 (3.8-10.6) k/uL RBC 4.42 (3.80-5.40) m/uL Hgb 13.7 (11.4-16.0) gm/dL Hct 41.4 (34.0-46.0) % MCV 93.5 (80.0-100.0) fL MCH 31.0 (25.0-35.0) pg MCHC 33.1 (31.0-37.0) g/dL RDW 12.4 (11.5-15.5) % Plt Count 259 (150-450) k/uL MPV 9.2 Neutrophils % 74 % Lymphocytes % 17 % Monocytes % 6 % Eosinophils % 1 % Basophils % 1 % Neutrophils # 5.9 (1.3-7.7) k/uL Lymphocytes # 1.4 (1.0-4.8) k/uL Monocytes # 0.4 (0-1.0) k/uL Eosinophils # 0.1 (0-0.7) k/uL Basophils # 0.1 (0-0.2) k/uL Sodium 143 (137-145) mmol/L Potassium 4.5 (3.5-5.1) mmol/L Chloride 104 (98-107) mmol/L Carbon Dioxide 30 (22-30) mmol/L Anion Gap 9 mmol/L BUN 18 H (7-17) mg/dL Creatinine 0.83 (0.52-1.04) mg/dL Est GFR (CKD-EPI)AfAm 79 (>60 ml/min/1.73 sqM) Est GFR (CKD-EPI)NonAf 69 (>60 ml/min/1.73 sqM) Glucose 102 H (74-99) mg/dL Calcium 9.5 (8.4-10.2) mg/dL Magnesium 1.7 (1.6-2.3) mg/dL Total Bilirubin 0.6 (0.2-1.3) mg/dL AST 24 (14-36) U/L ALT 21 (4-34) U/L Alkaline Phosphatase 69 (38-126) U/L Troponin I <0.012 (0.000-0.034) ng/mL Total Protein 7.4 (6.3-8.2) g/dL Albumin 4.4 (3.5-5.0) g/dL Urine Color Urine Appearance (Clear) Urine pH (5.0-8.0) Ur Specific [place] (1.001-1.035) Urine Protein (Negative) Urine Glucose (UA) (Negative) Urine Ketones (Negative) Urine Blood (Negative) Urine Nitrite (Negative) Urine Bilirubin (Negative) Urine Urobilinogen (<2.0) mg/dL Ur Leukocyte Esterase (Negative) Urine RBC (0-5) /hpf Urine WBC (0-5) /hpf Ur Squamous Epith Cells (0-4) /hpf Urine Bacteria (None) /hpf 11/19/22 Range/Units 12:40 WBC (3.8-10.6) k/uL RBC (3.80-5.40) m/uL Hgb (11.4-16.0) gm/dL Hct (34.0-46.0) % MCV (80.0-100.0) fL MCH (25.0-35.0) pg MCHC (31.0-37.0) g/dL RDW (11.5-15.5) % Plt Count (150-450) k/uL MPV Neutrophils % % Lymphocytes % % Monocytes % % Eosinophils % % Basophils % % Neutrophils # (1.3-7.7) k/uL Lymphocytes # (1.0-4.8) k/uL Monocytes # (0-1.0) k/uL Eosinophils # (0-0.7) k/uL Basophils # (0-0.2) k/uL Sodium (137-145) mmol/L Potassium (3.5-5.1) mmol/L Chloride (98-107) mmol/L Carbon Dioxide (22-30) mmol/L Anion Gap mmol/L BUN (7-17) mg/dL Creatinine (0.52-1.04) mg/dL Est GFR (CKD-EPI)AfAm (>60 ml/min/1.73 sqM) Est GFR (CKD-EPI)NonAf (>60 ml/min/1.73 sqM) Glucose (74-99) mg/dL Calcium (8.4-10.2) mg/dL Magnesium (1.6-2.3) mg/dL Total Bilirubin (0.2-1.3) mg/dL AST (14-36) U/L ALT (4-34) U/L Alkaline Phosphatase (38-126) U/L Troponin I (0.000-0.034) ng/mL Total Protein (6.3-8.2) g/dL Albumin (3.5-5.0) g/dL Urine Color Colorless Urine Appearance Clear (Clear) Urine pH 6.0 (5.0-8.0) Ur Specific [place] 1.004 (1.001-1.035) Urine Protein Negative (Negative) Urine Glucose (UA) Negative (Negative) Urine Ketones Negative (Negative) Urine Blood Negative (Negative) Urine Nitrite Negative (Negative) Urine Bilirubin Negative (Negative) Urine Urobilinogen <2.0 (<2.0) mg/dL Ur Leukocyte Esterase Trace H (Negative) Urine RBC <1 (0-5) /hpf Urine WBC 9 H (0-5) /hpf Ur Squamous Epith Cells <1 (0-4) /hpf Urine Bacteria Few H (None) /hpf Disposition Clinical Impression: Hypertensive urgency Disposition: HOME SELF-CARE Instructions (If sedation given, give patient instructions): Hypertension (ED) Additional Instructions: Patient should increase the hydralazine to 2 pills at night patient should follow-up with a primary medical care doctor Is patient prescribed a controlled substance at d/c from ED?: No Referrals: Philip Richardson DO [Primary Care Provider] - 1-2 days Time of Disposition: 13:47
[2022-11-19 12:40] LABS: Basophils # (A) 0.1 k/uL (0-0.2); Basophils % (A) 1 %; Eosinophils # (A) 0.1 k/uL (0-0.7); Eosinophils % (A) 1 %; HCT 41.4 % (34.0-46.0); HGB 13.7 gm/dL (11.4-16.0); Lymphocytes # (A) 1.4 k/uL (1.0-4.8); Lymphocytes % (A) 17 %; MCHC 33.1 g/dL (31.0-37.0); MCV 93.5 fL (80.0-100.0); Mean Platelet Volume 9.2; Monocytes # (A) 0.4 k/uL (0-1.0); Monocytes % (A) 6 %; Neutrophils # (A) 5.9 k/uL (1.3-7.7); Neutrophils % (A) 74 %; Platelet Count 259 k/uL (150-450); RBC 4.42 m/uL (3.80-5.40); RDW 12.4 % (11.5-15.5)
[2022-11-19 12:50] LABS: Albumin 4.4 g/dL (3.5-5.0); Calcium 9.5 mg/dL (8.4-10.2); Magnesium 1.7 mg/dL (1.6-2.3); Potassium 4.5 mmol/L (3.5-5.1); Total Bilirubin 0.6 mg/dL (0.2-1.3); Total Protein 7.4 g/dL (6.3-8.2)
--- NOTE | 2022-11-19 12:59 | XR ---
EXAMINATION TYPE: XR chest 2V DATE OF EXAM: 11/19/2022 12:53 PM COMPARISON: Chest radiographs from CT 08/29/2019 TECHNIQUE: XR chest 2V Frontal and lateral views of the chest. CLINICAL INDICATION:Female, 76 years old with history of Chest Pain; FINDINGS: Lungs/Pleura: There is flattening of the diaphragm with increased lucency of the lungs. No evidence o f pneumothorax, pleural effusion or focal consolidation. Pulmonary vascularity: Unremarkable. Heart/mediastinum: Cardiomediastinal silhouette is unremarkable. Musculoskeletal: No acute osseous pathology. IMPRESSION: 1. No acute cardiopulmonary disease process. 2. COPD changes.
[2022-11-19] MEDS ORDERED: hydrALAZINE HCL 20 MG/ML 1 ML VIAL IVP STA (13:07)
[2022-11-19 13:23] LABS: Appearance,Urine Clear (Clear); Bacteria,Urine Few /hpf; Bilirubin,Urine Negative (Negative); Blood,Urine Negative (Negative); Color,Urine Colorless; Glucose,Urine (UA) Negative (Negative); Ketones,Urine Negative (Negative); Leukocyte Esterase,Urine Trace (Negative); Nitrite,Urine Negative (Negative); Protein,Urine Negative (Negative); RBC,Urine <1 /hpf (0-5); Specific Gravity,Urine 1.004 (1.001-1.035); Squamous Epithelial Cell,Urine <1 /hpf (0-4); Urobilinogen,Urine <2.0 mg/dL (<2.0); WBC,Urine 9 /hpf (0-5)
[2022-11-19 13:53] VITALS: BP 160/84; PULSE 68
== END 2022-11-19 14:16 | disposition home or self-care (01) ==
LOC: EC 11:31
DX: I16.0 Hypertensive urgency (principal); E78.5 Hyperlipidemia, unspecified; I10 Essential (primary) hypertension; Z88.0 Allergy status to penicillin; Z88.1 Allergy status to other antibiotic agents; Z98.51 Tubal ligation status; Z79.82 Long term (current) use of aspirin; Z79.899 Other long term (current) drug therapy
CPT/HCPCS: 36415; 93005; 80053; 83735; 84484; 85025; 81001; 87086; 87077; 87186; 71046; 99284; 96374; J0360

== ENCOUNTER → 2023-03-22 | Outpatient (CLI) | payer MEDICARE, OTHER ==
[2023-03-22 12:24] LABS: INR 0.9 (<1.2); Prothrombin Time 9.5 sec (9.0-12.0)
[2023-03-22 12:28] LABS: Partial Thromboplastin Time 21.8 sec (22.0-30.0)
[2023-03-22 15:36] LABS: HCT 38.9 % (37.2-46.3); HGB 12.1 d/dL (12.0-15.0); MCHC 31.1 d/dL (32.0-37.0); MCV 96.5 FL (80.0-97.0); Mean Platelet Volume 12.1 FL (9.5-12.2); NRBC Per 100 WBC 0 X 10*3/uL (0.00-0.01); Platelet Count 247 X 10*3/uL (140-440); RBC 4.03 X 10*6/uL (4.10-5.20); RDW 12.8 % (11.5-14.5); WBC 8.61 X 10*3/uL (4.50-10.00)
[2023-03-22 16:04] LABS: ALT 17 U/L (8-44); AST 21 U/L (13-35); Albumin 4.3 d/dL (3.8-4.9); Albumin/Globulin Ratio 1.65 Ratio (1.60-3.17); Alkaline Phosphatase 69 U/L (41-126); BUN/Creat Ratio 24.91 Ratio (12.00-20.00); Blood Urea Nitrogen 27.4 mg/dL (9.0-27.0); Calcium 9.6 mg/dL (8.7-10.3); Carbon Dioxide 26.5 mmol/L (21.6-31.8); Chloride 107 mmol/L (96-109); Globulin 2.6 d/dL (1.6-3.3); Glucose 80 mg/dL (70-110); Potassium 4.9 mmol/L (3.5-5.5); Sodium 143 mmol/L (135-145); Total Bilirubin 0.3 mg/dL (0.3-1.2); Total Protein 6.9 d/dL (6.2-8.2)
[2023-03-22 16:15] LABS: Appearance,Urine Clear (Clear); Bilirubin,Urine Negative (Negative); Blood,Urine Negative (Negative); Color,Urine Yellow (Yellow); Ketones,Urine Negative (Negative); Nitrite,Urine Positive (Negative); PH, Urine 5.5; Specific Gravity,Urine 1.016 (1.001-1.030); Urobilinogen,Urine 0.2 E.U./DL
[2023-03-22 16:35] LABS: Bacteria,Urine 3+ (None Seen)
== END | disposition home or self-care (01) ==
LOC: LABPAT 11:06
PROVIDERS: ATTEND Orthopaedic Surgery Sports Medicine
DX: Z01.818 Encounter for other preprocedural examination (principal); I49.9 Cardiac arrhythmia, unspecified; R94.31 Abnormal electrocardiogram [ECG] [EKG]
CPT/HCPCS: 80053; 81001; 85027; 85610; 85730; 87070; 93005

== ENCOUNTER 2023-04-12 07:51 | Day surgery (SDC) | payer MEDICARE, OTHER ==
[~2023-04-12 07:51] MED LIST: ACETAMINOPHEN TAB 500 MG TAB PO PRN; GABAPENTIN 300 MG CAP PO PRN; LACTATED RINGERS 1,000 ML IV SCH; MELOXICAM 7.5 MG TAB PO PRN; ONDANSETRON 4 MG/2 ML VIAL IVP PRN; TRANEXAMIC 1,000 MG/100ML-NACL 1,000 MG in SALINE 1 100ML.BAG IVPB PRN
[2023-04-12] MEDS ORDERED: MIDAZOLAM 2 MG/2 ML VIAL IVP ONE (09:01)
[2023-04-12] MEDS ORDERED: fentaNYL (PF) 50 MCG/ML 2 ML AMP IVP ONE (09:01)
[2023-04-12] MEDS ORDERED: NALOXONE 0.4 MG/ML 1 ML VIAL IV PRN (09:17)
[2023-04-12] MEDS ORDERED: ONDANSETRON 4 MG/2 ML VIAL IVP PRN (09:17)
[2023-04-12] MEDS ORDERED: MAGNESIUM HYDROXIDE 2,400 MG/30 ML CUP PO PRN (09:17)
[2023-04-12] MEDS ORDERED: NA PHOS,M-B/NA PHOS,DI-BA 133 ML ENEMA RECTAL PRN (09:17)
[2023-04-12] MEDS ORDERED: bisacodyL 10 MG SUPP RECTAL PRN (09:17)
[2023-04-12] MEDS ORDERED: traMADol 50 MG TAB PO PRN (09:17)
[2023-04-12] MEDS ORDERED: ACETAMINOPHEN TAB 325 MG TAB PO PRN (09:17)
[2023-04-12] MEDS ORDERED: HYDROmorphone 0.5 MG/0.5 ML SYRINGE IVP PRN ×3 (09:17)
[2023-04-12] MEDS ORDERED: HYDROcodone/APAP 7.5-325MG 1 EACH TAB PO PRN (09:20)
[2023-04-12] MEDS ORDERED: ROPIVACAINE 5 MG/ML 30 ML VIAL ONE (09:34)
[2023-04-12] MEDS ORDERED: MIDAZOLAM 2 MG/2 ML VIAL ONE (09:34)
[2023-04-12] MEDS ORDERED: SODIUM CHLORIDE 0.9% (PF) 10 ML VIAL ONE (09:34)
[2023-04-12] MEDS ORDERED: ePHEDrine 50 MG/ML 1 ML VIAL ONE (09:34)
[2023-04-12] MEDS ORDERED: PROPOFOL 10 MG/ML 20 ML VIAL IV ONE (09:34)
[2023-04-12] MEDS ORDERED: fentaNYL (PF) 50 MCG/ML 2 ML AMP ONE (09:34)
[2023-04-12] MEDS ORDERED: TRANEXAMIC 1,000 MG/100ML-NACL PREMIX BAG ONE (09:34)
[2023-04-12] MEDS ORDERED: ceFAZolin 3,000 MG in SODIUM CHLORIDE 0.9% IRRIGATIO 3,000 ML IRRIGATION ONE (10:07)
[2023-04-12] MEDS ORDERED: ROPIVACAINE 1,100 MG, SODIUM CHLORIDE 0.9% 500 ML 330 ML, EMPTY PAIN BALL 1 EACH MISCELLANE PRN ×2 (11:23)
--- NOTE | 2023-04-12 11:23 | P.ANPRN ---
Procedure Note - Anesthesia - Nerve Block Performed Left Adductor Canal Infusion Time Out Performed: Yes (08) Date of Procedure: 04/12/23 Location of Patient: PreOp Indication: Acute Post-Operative Pain, Dx/Pain Location (Left knee), Requested by Surgeon Specifically requested for management of pain by Dr.: Viral Santiago Sedation Type: Sedate with meaningful contact maintained Preparation: Sterile Prep, Sterile Dressing Position: Supine Catheter: Indwelling Needle Types: Pajunk Needle Gauge: 18 Ultrasound used to visualize needle placement: Yes Ultrasound used to observe medication spread: Yes Injectate: 0.5% Ropivacaine (see comment for volume) (15 mL +10 mL of normal saline) Blood Aspirated: No Pain Paresthesia on Injection Noted: No Resistance on Injection: Normal Image Stored and Saved: Yes Events: Uneventful and Well Tolerated Left iPack Single Time Out Performed: Yes Date of Procedure: 04/12/23 Location of Patient: PreOp Indication: Acute Post-Operative Pain, Dx/Pain Location (Left knee), Requested by Surgeon Specifically requested for management of pain by DrJenny: Viral Santiago Sedation Type: Sedate with meaningful contact maintained Preparation: Sterile Prep Position: Right Lateral Catheter: None Needle Types: Pajunk Needle Gauge: 21 Ultrasound used to visualize needle placement: Yes Ultrasound used to observe medication spread: Yes Injectate: 0.5% Ropivacaine (see comment for volume) (15 mL +10 mL of normal saline) Blood Aspirated: No Pain Paresthesia on Injection Noted: No Resistance on Injection: Normal Image Stored and Saved: Yes Events: Uneventful and Well Tolerated
--- NOTE | 2023-04-12 12:08 | XR ---
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 There is soft tissue edema and soft tissue e mphysema. Vascular calcifications are noted. IMPRESSION: 1. Postoperative change. Appears in near-anatomic alignment
[2023-04-12] MEDS: HYDROmorphone 0.5 MG/0.5 ML SYRINGE IVP PRN ×2 (12:11→13:47)
--- NOTE | 2023-04-12 12:34 | OP ---
OPERATIVE REPORT DATE OF SERVICE : 04/12/2023 [employer]IREMENT [employer] SPECIALIST: Alexys Santillan PA-C PREOPERATIVE DIAGNOSIS: Left knee osteoarthrosis. POSTOPERATIVE DIAGNOSIS: Left knee osteoarthrosis. OPERATION: Left total knee arthroplasty. ANESTHESIA: Spinal sedation. ESTIMATED BLOOD LOSS: 100 mL. TOURNIQUET TIME: 47 minutes at 250 mmHg. COMPLICATIONS: None apparent. DRAINS: None. DISPOSITION: Postanesthesia care unit. INDICATIONS: Olivia is a very pleasant 77-year-old female with longstanding history of left knee pain. History and physical examination are consistent with advanced left knee osteoarthrosis. She has been through significant nonoperative management at this point. Further treatment options were discussed, and has she decided to go forward with a left total knee arthroplasty. The risks of procedure were discussed with her in detail. These risks included but were not limited to risk of infection, nerve damage, bleeding, pain, and a small risk of deep vein thrombosis which could lead to fatal pulmonary embolism. There is also a risk of loosening of the implant which could require revision operation. The patient understands these risks. All of her questions were answered to her satisfaction. An appropriate informed consent was obtained. DESCRIPTION OF THE PROCEDURE: The patient was identified in the preoperative holding area. The surgical site was marked by both the patient and myself. She was given 2 g of Ancef IV for prophylactic purposes. She was then transferred to the operative suite. She was placed supine on the operating room table. A spinal anesthetic was then administered and dosed per the Anesthesia Department without apparent complication. An examination under anesthesia was then performed. The patient was 2 to 3 degrees shy of full extension. She had 95 degrees of flexion. Medial collateral ligament, lateral collateral ligament, and posterior cruciate ligaments were stable. Tourniquet was then placed high on the left upper extremity, well padded in preparation for surgery. The patient's left lower extremity was then prepped and draped in the usual sterile fashion. Standard surgical pause was undertaken to ensure that we were operating the correct site and that appropriate preoperative antibiotics had been given. All staff in the room were in agreement, and we proceeded. The outlines of the patella were then marked with a surgical pen. A planned 12 cm vertical incision centered over the patella was marked with a surgical pen. Leg was then exsanguinated with an Esmarch dressing. The knee was then flexed, and the tourniquet was inflated to 250 mmHg. The total tourniquet time for the procedure was 47 minutes. Incision was then made with a 10-blade scalpel. Dissection was carried down sharply to the overlying fascia. Great care was taken to minimize the skin flaps. The knee was then exposed using a standard medial parapatellar approach. A small cuff of quadriceps tendon was then left for suturing. She was in a bit of valgus preoperatively. A standard medial release was then made. Superficial medial collateral ligament dissected off the bone around to the posterior aspect of the proximal tibia. Medial meniscus was then excised as well. The lateral meniscus was also released anteriorly. The leg was then externally rotated. The patella was everted. The knee was flexed. Retractors were then placed to protect the collateral ligaments. I then proceeded to remove the infrapatellar fat pad. This was excised sharply tangentially with fibers of the patellar tendon. I then proceeded to remove the peripheral osteophytes. This was done with a rongeur. I then proceeded with the distal femoral resection. She did have near full extension. A planned 9 mm resection was then done. The femoral canal was then entered in the midline of the femur approximately 10 mm anterior to the origin of the posterior cruciate ligament. The reynaldo was then advanced down the center of the femur and placed intramedullary. Based on the preoperative radiographs, the angle between the anatomic and mechanical axis of the femur was approximately 4 the patient 5 degrees. The valgus angle of the distal femoral cutting guide was then set at 4 degrees for the left knee. The distal femoral cutting guide was then advanced over the intramedullary reynaldo. This was seated firmly against the femur. Then, as mentioned, I planned to take 9 mm off the distal femur. The cutting block was then secured onto the femur with pins. Jig was then removed. Distal femoral cut was made through the slot of the block. The pins were then removed. The distal femoral cutting block was removed. The accuracy of the distal femoral cuts was checked with 2 flat bars. I then proceeded with femoral sizing. Posterior referencing sizing guide was held firmly against the resected distal surface of the femur. The posterior condyles were resting on the posterior plane of the guide. The sizing stylus was then placed onto the anterior femur. The size was measured as a size 5. I then assessed for femoral rotation. Plan was for 3 degrees of external rotation. Three degrees of external rotation was placed onto the jig. These holes were then marked. I then confirmed the rotation by 3 separate methods. This was done using epicondylar axis as well as Whitesides line and posterior referencing. It was deemed that the external rotation was proper. I then went forward with placement of the femoral cutting block. This was placed over the previously placed pin holes. The Sabas wing was then placed on the anterior slots to ensure that we would not notch the anterior femur with the anterior femoral cut. I then proceeded with the anterior femoral cut. This was flush with the anterior cortex of the femur. The posterior cuts were then made followed by the anterior chamfer cut and then the posterior chamfer cut. The cutting block was then removed. Throughout the resection, the collateral ligaments were protected with retractors. I then placed a trial size 5 femur. It was slightly wide but the narrow fit very nicely, and it fit flush with the distal end of the femur. The drill holes were then made. I then proceeded with the tibial cut. I planned for cruciate-retaining knee. The guide was placed and set for varus/valgus and for slope. The height was set for approximately 2 mm resection from the lateral tibial plateau, which was the lower side. I was happy with the alignment and the amount of resection. The cutting block was then pinned to the proximal tibia. The alignment reynaldo was removed, and the proximal tibia was resected with a reciprocating saw. Again, this was done with retractors, protecting the collateral ligaments as well as the posterior cruciate ligament. I then proceeded to re-evaluate flexion-extension gaps. A 10 mm block was then placed. The flexion-extension gaps were equal. I then proceeded to resect the posterior osteophytes. She had very minimal posterior osteophytes. This was done using a curved osteotome. This resected the posterior osteophytes, and posterior capsular stripping was done off the posterior aspect of the femur at this time. The osteophytes were then removed. I then proceeded with the resection of the patella. The thickness of the patella was measured using the caliper. The thickness was 22 mm. The thickness of the anticipated patellar dome was taken into account. Resection was then performed and confirmed to be equal in 4 quadrants using a caliper. Approximately 14 mm of bone remained after resection. A 29 x 8 standard patellar trial was then placed. The holes were drilled, and the trial was then placed. I then proceeded with sizing tibial plate. A size C tibial plate fit very nicely. I then placed the trial femur, the tibial tray, and patellar button. A 10 mm trial tibial insert was also placed. The components fit very nicely. She had full extension and flexion. The extension and flexion gaps were equal and stable to both varus and valgus stress. The patella tracked appropriately. Tibial tray rotation was then marked with a Bovie. It was externally rotated properly. I then proceeded with tibial preparation. I first drilled the femoral holes and removed the femoral component. Tibial tray was then set for proper external rotation as well as medial and lateral placement of the tibia. This was then pinned in place. I then proceeded with punching the keel. I then decided to proceed with cementing of all our components. The knee was thoroughly irrigated with sterile saline solution via pulse lavage. The lateral geniculate artery was identified and cauterized. All blood was removed from the bone of the tibia, femur, and patella with pulse lavage. I then proceeded with cementing. Two packs of antibiotic bone cement were then prepared on the back table by the surgical coordinator. I then proceeded with cementing the tibia first. Cement was impacted in the keel as well as deeply seated in the bone. A second coat of cement was then placed. The tibia was then impacted into place. Excess cement was removed with Garcia's and Jokers. I then proceeded with cementing of the femoral component. The femoral component was also cemented using standard technique. Excess cement was removed. A 10 mm trial insert was then placed in the knee. It was brought into full extension with a constant axial load placed until the cement had hardened. The patellar component was then cemented. This was held firmly with a compressive device until the cement had dried. When the cement had dried, the knee was taken out of extension. All excess cement was removed from around the prosthesis. I then trialed the knee with a 10 mm insert. Flexion and extension gaps were appropriate. The knee was stable. It came into full extension. I decided to go forward with a 10 mm medial congruent cross-linked cruciate- retaining tibial insert. Polyethylene was then placed on the tibial tray and locked into place. The knee was then reduced. The knee was again further irrigated with sterile saline solution with antibiotic added. The tourniquet was then deflated. Total tourniquet time for the procedure was 47 minutes at 250 mmHg. Final components were Kareem Persona size 5 narrow cruciate-retaining femoral component, a size C tibial tray, a 10 mm medial congruent cruciate-retaining polyethylene insert, and a 29 x 8 mm patella. I then proceeded with closure. Again, the knee was thoroughly irrigated. The quadriceps tendon and the medial retinaculum were reapproximated with #2 Ethibond suture. The extensor mechanism was then closed with a running #2 Quill suture. Subcutaneous tissues were closed with 2-0 Vicryl interrupted suture. The skin was closed with a running 3-0 Quill suture. Dermabond was applied to the incision. Sterile compressive dressing was then applied. All sponge and needle counts were deemed correct prior to closure. The patient tolerated the procedure without apparent complication. She was transferred to the recovery room in stable condition. MMODL / IJN: [id number] /
[2023-04-12] MEDS ORDERED: SENNOSIDES-DOCUSATE SODIUM 1 EACH TAB PO SCH (21:00)
[2023-04-12] MEDS: LACTATED RINGERS 1,000 ML IV SCH (21:07)
[2023-04-12] MEDS: ASPIRIN 81 MG PO SCH (21:18)
[2023-04-12] MEDS: HYDROcodone/APAP 7.5-325MG 1 EACH TAB PO PRN (21:19)
[2023-04-13] MEDS: HYDROcodone/APAP 7.5-325MG 1 EACH TAB PO PRN ×3 (02:07→11:36)
[2023-04-13] MEDS: LACTATED RINGERS 1,000 ML IV SCH (06:02)
[2023-04-13 07:47] VITALS: BP 132/75; PULSE 89; RESP 17; TEMP 97.8
[2023-04-13] MEDS: ASPIRIN 81 MG PO SCH (08:07)
--- NOTE | 2023-04-13 10:28 | P.PN ---
Progress Note - Text Progress Note Date: 04/13/23 Postoperative day # 1 status post total knee arthroplasty, on adductor canal perineural catheter placed for postoperative analgesia. Ropivacaine 0.2% 8 mL per hour through ON-Q pump continuous infusion. Pain is well controlled. On visual analog scale 0/10 Patient is taking PRN oral pain medications. Catheter site: Looks Ok. There is no erythema or tenderness. Continue with the current pain management plan and will follow.
[2023-04-13 11:27] LABS: Basophils # (A) 0.02 X 10*3/uL (0.00-0.10); Basophils % (A) 0.2 %; Eosinophils # (A) 0.03 X 10*3/uL (0.04-0.35); Eosinophils % (A) 0.3 %; HCT 32.7 % (37.2-46.3); Lymphocytes # (A) 1.14 X 10*3/uL (0.90-5.00); Lymphocytes % (A) 12.9 %; MCH 31.7 pg (27.0-32.0); MCHC 33.6 d/dL (32.0-37.0); MCV 94.2 FL (80.0-97.0); Monocytes # (A) 0.96 X 10*3/uL (0.20-1.00); Monocytes % (A) 10.8 %; NRBC Per 100 WBC 0 X 10*3/uL (0.00-0.01); Neutrophils # (A) 6.69 X 10*3/uL (1.80-7.70); Neutrophils % (A) 75.5 %; Platelet Count 239 X 10*3/uL (140-440); RBC 3.47 X 10*6/uL (4.10-5.20); RDW 12.7 % (11.5-14.5); WBC 8.87 X 10*3/uL (4.50-10.00)
[2023-04-13] MEDS ORDERED: MULTIVITAMINS, THERA 1 EACH TAB PO SCH (12:00)
--- NOTE | 2023-04-13 12:10 | P.CONS ---
History of Present Illness - Reason for Consult Consult date: 04/13/23 - History of Present Illness 77-year-old female with PMH of hypertension, seasonal ALLERGIES, GERD, dyslipidemia presents to [facility] for elective surgery. She underwent left total knee arthroplasty with Dr. Santiago. [facility] has been consulted for medical management of this patient. Patient was seen and examined earlier this morning. She reports well-controlled pain in her left knee. Urinating freely. Passing gas. She has no other complaints. Pertinent positives and negatives as discussed in HPI, a complete review of systems was performed and all other systems are negative. General: non toxic, no distress, appears at stated age Derm: warm, dry Head: atraumatic, normocephalic, symmetric Eyes: EOMI, no lid lag, anicteric sclera Cardiovascular: S1S2 reg, no murmur Lungs: CTA bilateral, no rhonchi, no rales , no accessory muscle use Ext: no gross muscle atrophy, no edema, no contractures Neuro: no focal neuro deficits Psych: Alert, oriented, appropriate affect Hypertension Seasonal ALLERGIES GERD Dyslipidemia Based on my assessment of this patient, this patient meets a moderate complexity level of care. Patient has a chronic diagnosis as below. Hypertension: BP 132/75. Continue atenolol 100 mg by mouth daily, hydralazine 50 mg by mouth in the AM + 25 mg by mouth at 1PM/QHS, Losartan 50 mg by mouth daily. Seasonal ALLERGIES: Claritin 10 mg PO QD. GERD: Prilosec 20 mg PO QD. Dyslipidemia: Pravasatin 40 mg PO QD. Patient names her daughter decision maker if she cant make decisions for herself. She would like to be FULL CODE. Anticipate DC home today. She is medically stable for discharge. Medication reconciliation completed. Thank you for this consultation. Please call [facility] with any additional questions or concerns. I have reviewed the following senior microsoft consultant notes: Orthopedic surgery operative note. I have reviewed the results of the following tests: CBC shows hemoglobin of 11. Knee x-ray shows postoperative change. I have ordered the following tests: I have discussed the care of this patient with the following independent historian: I have independently interpreted the following test below: I have discussed the management of this patient with the following physician: Past Medical History Past Medical History: Hyperlipidemia, Hypertension History of Any Multi-Drug Resistant Organisms: None Reported Past Surgical History: Tubal Ligation Additional Past Surgical History / Comment(s): carpel tunnel, radiofrequency ablation of nerves (Neck)- low back sherwin bone spurs to feet, Past Anesthesia/Blood Transfusion Reactions: No Reported Reaction Additional Past Anesthesia/Blood Transfusion Reaction / Comm: no blood tx hx Past Psychological History: No Psychological Hx Reported Smoking Status: Never smoker Past Alcohol Use History: Occasional Past Drug Use History: None Reported - Past Family History Father Family Medical History: Cancer Additional Family Medical History / Comment(s): lung Medications and Allergies Home Medications Medication Instructions Recorded Confirmed Type Acetaminophen [Tylenol Extra 1,000 mg PO Q6H PRN 09/01/19 04/12/23 History Strength] Celecoxib [CeleBREX] 100 mg PO DIRECTED 09/01/19 04/12/23 History Glucosam/Seng-Msm1/C/Garrett/Bosw 1 tab PO DAILY 09/01/19 04/12/23 History [Bjotwwynugu-Aybxgzgvhsb-PHX Tb] Lactobacillus Acidophilus 1 tab PO DAILY 09/01/19 04/12/23 History [Acidophilus] Loratadine [Claritin] 10 mg PO DAILY 09/01/19 04/12/23 History Multivitamins, Thera [Multivitamin 1 tab PO DAILY 09/01/19 04/12/23 History (formulary)] Omeprazole 20 mg PO DAILY 09/01/19 04/12/23 History Atenolol 100 mg PO DAILY 11/19/22 04/12/23 History Calcium Carbonate [Tums] 1,000 mg PO ACHS PRN 11/19/22 04/12/23 History Cholecalciferol [Vitamin D3 (25 25 mcg PO DAILY 11/19/22 04/12/23 History Mcg = 1000 Iu)] Cranberry Fruit Extract [Cranberry] 400 mg PO DAILY 11/19/22 04/12/23 History Hydralazine (Unknown Strength) 50 mg PO DAILY 11/19/22 04/12/23 History Pravastatin Sodium [Pravachol] 40 mg PO DIRECTED 11/19/22 04/12/23 History Hydralazine (Unk) 25 mg PO HS 04/05/23 04/12/23 History Hydralazine(Unk) 25 mg PO 1300 04/05/23 04/12/23 History Losartan(Unk) 50 mg PO DAILY 04/05/23 04/12/23 History Allergies Allergy/AdvReac Type Severity Reaction Status Date / Time erythromycin base Allergy Unknown Verified 04/12/23 08:30 Penicillins Allergy Unknown Verified 04/12/23 08:30 Childhood Physical Exam Vitals: Vital Signs Temp Pulse Resp BP Pulse Ox 04/13/23 08:07 89 17 04/13/23 07:04 97.8 F 89 17 132/75 96 04/13/23 02:09 98.1 F 80 19 123/72 95 04/12/23 19:58 97.9 F 82 19 174/89 96 04/12/23 17:08 97 04/12/23 15:15 97.4 F L 68 17 147/79 95 04/12/23 14:30 65 16 140/65 99 04/12/23 14:00 64 16 156/59 99 04/12/23 13:30 62 16 138/62 100 04/12/23 13:15 60 16 129/61 100 04/12/23 13:00 66 16 153/70 100 04/12/23 12:45 67 16 177/72 100 04/12/23 12:30 75 16 115/62 100 04/12/23 12:15 64 16 113/59 99 Intake and Output 04/12/23 04/13/23 04/13/23 22:59 06:59 14:59 Other: Voiding Method Bedside Commode Toilet Diaper # Voids 1 3 Weight 72.4 kg Results CBC & Chem 7: 04/13/23 07:06 Labs: Abnormal Lab Results - Last 24 Hours (Table) 04/13/23 Range/Units 07:06 RBC 3.47 L (4.10-5.20) X 10*6/uL Hgb 11.0 L (12.0-15.0) d/dL Hct 32.7 L (37.2-46.3) % Eosinophils # 0.03 L (0.04-0.35) X 10*3/uL
--- NOTE | 2023-04-13 13:04 | P.DS ---
Providers Expected date of discharge: 04/13/23 Attending physician: Viral Santiago Consults: 04/12/23 16:23 Consult Physician Routine Consulting Provider: Doris Branch Consult Reason/Comments: medical management Do you want consulting provider notified?: Yes Primary care physician: Philip Ricahrdson - Discharge Diagnosis(es) (1) Osteoarthritis of left knee Patient was admitted to the OR on 04/12/23 to undergo a left total knee arthroplasty. She had failed conservative measures as an outpatient and desired to proceed with elective surgery after given informed consent. She underwent the above procedure which she tolerated well without complication. Postoperative hospital course has remained without complication. On day of discharge she is afebrile, vital signs stable, labs within acceptable ranges, tolerating by mouth meds and diet, voiding without difficulty, positive flatus, denies abdominal pain or calf pain, pain is controlled on oral pain medication and has no new complaints. Wound is benign, neurovascular status is intact, calf is soft and nontender, abdomen soft and nontender. Review of systems is negative for numbness, tingling, fever, chills, chest pain, shortness of breath, nausea, vomiting, dizziness, headaches, slurred speech or other. Current Visit: Yes Status: Acute Priority: Medium Procedures: Left TKA Patient Condition at Discharge: Good Plan - Discharge Summary Discharge Rx Participant: Yes New Discharge Prescriptions: New Aspirin [Adult Low Dose Aspirin EC] 81 mg PO BID #60 tab Docusate [Colace] 100 mg PO BID #60 capsule HYDROcodone/APAP 7.5-325MG [Gerber 7.5-325] 1 - 2 each PO Q6HR PRN #42 tab PRN Reason: Pain Ondansetron [Zofran] 4 mg PO Q8HR PRN #21 tab PRN Reason: Nausea Continue Celecoxib [CeleBREX] 100 mg PO DIRECTED Lactobacillus Acidophilus [Acidophilus] 1 tab PO DAILY Glucosam/Seng-Msm1/C/Garrett/Bosw [Azunjjcukri-Bmuwbbzximu-VHT Tb] 1 tab PO DAILY Omeprazole 20 mg PO DAILY Multivitamins, Thera [Multivitamin (formulary)] 1 tab PO DAILY Loratadine [Claritin] 10 mg PO DAILY Acetaminophen [Tylenol Extra Strength] 1,000 mg PO Q6H PRN PRN Reason: Pain Calcium Carbonate [Tums] 1,000 mg PO ACHS PRN PRN Reason: Gi Upset Cholecalciferol [Vitamin D3 (25 Mcg = 1000 Iu)] 25 mcg PO DAILY Pravastatin Sodium [Pravachol] 40 mg PO DIRECTED Hydralazine (Unknown Strength) 50 mg PO DAILY Losartan(Unk) 50 mg PO DAILY Cranberry Fruit Extract [Cranberry] 400 mg PO DAILY Atenolol 100 mg PO DAILY Hydralazine(Unk) 25 mg PO 1300 Hydralazine (Unk) 25 mg PO HS Discharge Medication List Acetaminophen [Tylenol Extra Strength] 1,000 mg PO Q6H PRN 09/01/19 [History] Celecoxib [CeleBREX] 100 mg PO DIRECTED 09/01/19 [History] Glucosam/Seng-Msm1/C/Garrett/Bosw [Wbomfjgavge-Cqohkuftfqo-ETB Tb] 1 tab PO DAILY 09/01/19 [History] Lactobacillus Acidophilus [Acidophilus] 1 tab PO DAILY 09/01/19 [History] Loratadine [Claritin] 10 mg PO DAILY 09/01/19 [History] Multivitamins, Thera [Multivitamin (formulary)] 1 tab PO DAILY 09/01/19 [History] Omeprazole 20 mg PO DAILY 09/01/19 [History] Atenolol 100 mg PO DAILY 11/19/22 [History] Calcium Carbonate [Tums] 1,000 mg PO ACHS PRN 11/19/22 [History] Cholecalciferol [Vitamin D3 (25 Mcg = 1000 Iu)] 25 mcg PO DAILY 11/19/22 [History] Cranberry Fruit Extract [Cranberry] 400 mg PO DAILY 11/19/22 [History] Hydralazine (Unknown Strength) 50 mg PO DAILY 11/19/22 [History] Pravastatin Sodium [Pravachol] 40 mg PO DIRECTED 11/19/22 [History] Hydralazine (Unk) 25 mg PO HS 04/05/23 [History] Hydralazine(Unk) 25 mg PO 1300 04/05/23 [History] Losartan(Unk) 50 mg PO DAILY 04/05/23 [History] Aspirin [Adult Low Dose Aspirin EC] 81 mg PO BID #60 tab 04/13/23 [Rx] Docusate [Colace] 100 mg PO BID #60 capsule 04/13/23 [Rx] HYDROcodone/APAP 7.5-325MG [Gerber 7.5-325] 1 - 2 each PO Q6HR PRN #42 tab 04/13/23 [Rx] Ondansetron [Zofran] 4 mg PO Q8HR PRN #21 tab 04/13/23 [Rx] Follow up Appointment(s)/Referral(s): [facility] [[facility]] - 1-2 Days
== END 2023-04-13 14:57 | disposition home health service (06) ==
LOC: OR 07:51 → 4SSUR 11:26 → OR 04-13 14:57
PROVIDERS: ATTEND Orthopaedic Surgery Sports Medicine
DX: M17.12 Unilateral primary osteoarthritis, left knee (principal); M25.562 Pain in left knee; M21.062 Valgus deformity, not elsewhere classified, left knee; I10 Essential (primary) hypertension; E78.5 Hyperlipidemia, unspecified; K21.9 Gastro-esophageal reflux disease without esophagitis; Z88.0 Allergy status to penicillin; Z79.899 Other long term (current) drug therapy
CPT/HCPCS: 27447; 94760; 97161; 64999; 64448; 85025; 73560; C1776; C1713; C1751; J2250; J0690 ×3; J2405; J3010; J2795; J2704; J1170

== ENCOUNTER → 2023-11-21 | Outpatient (CLI) | payer MEDICARE, OTHER ==
[2023-11-21 15:57] LABS: INR 0.9 (<1.2); Partial Thromboplastin Time 22.4 sec (22.0-30.0); Prothrombin Time 9.9 sec (10.0-12.5)
[2023-11-21 18:55] LABS: HGB 12.6 g/dL (12.0-15.0); MCH 30.1 pg (27.0-32.0); MCHC 32.3 g/dL (32.0-37.0); MCV 93.1 FL (80.0-97.0); Mean Platelet Volume 12.3 FL (9.5-12.2); NRBC Per 100 WBC 0 X 10*3/uL (0.00-0.01); Platelet Count 246 X 10*3/uL (140-440); RBC 4.19 X 10*6/uL (4.10-5.20); RDW 12.8 % (11.5-14.5); WBC 6.81 X 10*3/uL (4.50-10.00)
[2023-11-21 19:35] LABS: ALT 19 U/L (8-44); AST 22 U/L (13-35); Albumin 4.2 g/dL (3.8-4.9); Albumin/Globulin Ratio 1.56 Ratio (1.60-3.17); Alkaline Phosphatase 68 U/L (41-126); BUN/Creat Ratio 28.56 Ratio (12.00-20.00); Blood Urea Nitrogen 25.7 mg/dL (9.0-27.0); Calcium 9.6 mg/dL (8.7-10.3); Carbon Dioxide 26.5 mmol/L (21.6-31.8); Chloride 104 mmol/L (96-109); Globulin 2.7 g/dL (1.6-3.3); Glucose 90 mg/dL (70-110); Potassium 4.6 mmol/L (3.5-5.5); Sodium 140 mmol/L (135-145); Total Bilirubin 0.2 mg/dL (0.3-1.2); Total Protein 6.9 g/dL (6.2-8.2)
== END | disposition home or self-care (01) ==
LOC: LABPAT 14:06
PROVIDERS: ATTEND Orthopaedic Surgery Sports Medicine
DX: Z01.812 Encounter for preprocedural laboratory examination (principal); M17.11 Unilateral primary osteoarthritis, right knee; Z22.322 Carrier or suspected carrier of Methicillin resistant Staphylococcus aureus
CPT/HCPCS: 36415; 80053; 85027; 85610; 85730; 87070

== ENCOUNTER 2023-11-29 07:49 | Day surgery (SDC) | payer MEDICARE, OTHER ==
[2023-11-23 13:10] VITALS: BMI 34.6
[~2023-11-29 07:49] MED LIST changes: -ACETAMINOPHEN TAB 500 MG TAB PO PRN; -GABAPENTIN 300 MG CAP PO PRN; -LACTATED RINGERS 1,000 ML IV SCH; -ONDANSETRON 4 MG/2 ML VIAL IVP PRN; +VANCOMYCIN 1,000 MG in SODIUM CHLORIDE 0.9% 250 ML IVPB PRN
[2023-11-29] MEDS: GABAPENTIN 300 MG CAP PO PRN (09:00)
[2023-11-29] MEDS: ACETAMINOPHEN TAB 500 MG TAB PO PRN (09:00)
[2023-11-29] MEDS: DEXAMETHASONE SOD PHOSPHATE 4 MG/ML 1 ML VIAL IVP ONE (09:00)
[2023-11-29] MEDS: ONDANSETRON 4 MG/2 ML VIAL IVP ONE (09:00)
[2023-11-29] MEDS: ONDANSETRON 4 MG/2 ML VIAL IVP PRN (09:00)
[2023-11-29] MEDS: MIDAZOLAM 2 MG/2 ML VIAL IVP ONE ×2 (09:11)
[2023-11-29] MEDS: fentaNYL (PF) 50 MCG/ML 2 ML AMP IVP ONE (09:11)
[2023-11-29] MEDS: LACTATED RINGERS 1,000 ML IV ONE (09:25)
[2023-11-29] MEDS ORDERED: bisacodyL 10 MG SUPP RECTAL PRN (09:27)
[2023-11-29] MEDS ORDERED: MAGNESIUM HYDROXIDE 2,400 MG/30 ML CUP PO PRN (09:27)
[2023-11-29] MEDS ORDERED: ACETAMINOPHEN TAB 325 MG TAB PO PRN (09:27)
[2023-11-29] MEDS ORDERED: ONDANSETRON 4 MG/2 ML VIAL IVP PRN (09:27)
[2023-11-29] MEDS ORDERED: NALOXONE 0.4 MG/ML 1 ML VIAL IV PRN (09:27)
[2023-11-29] MEDS ORDERED: HYDROmorphone 0.5 MG/0.5 ML SYRINGE IVP PRN ×2 (09:27)
[2023-11-29] MEDS ORDERED: NA PHOS,M-B/NA PHOS,DI-BA 133 ML ENEMA RECTAL PRN (09:27)
[2023-11-29] MEDS ORDERED: traMADol 50 MG TAB PO PRN (09:27)
[2023-11-29] MEDS ORDERED: ROPIVACAINE 5 MG/ML 30 ML VIAL ONE (09:46)
[2023-11-29] MEDS ORDERED: TRANEXAMIC 1,000 MG/100ML-NACL PREMIX BAG ONE (09:46)
[2023-11-29] MEDS ORDERED: fentaNYL (PF) 50 MCG/ML 2 ML AMP ONE (09:46)
[2023-11-29] MEDS ORDERED: SODIUM CHLORIDE 0.9% (PF) 10 ML VIAL ONE (09:46)
[2023-11-29] MEDS ORDERED: PROPOFOL 10 MG/ML 20 ML VIAL IV ONE (09:46)
[2023-11-29] MEDS ORDERED: MIDAZOLAM 2 MG/2 ML VIAL ONE (09:46)
[2023-11-29] MEDS ORDERED: HYDROcodone/APAP 7.5-325MG 1 EACH TAB PO PRN (09:58)
[2023-11-29] MEDS: ceFAZolin 3,000 MG in SODIUM CHLORIDE 0.9% IRRIGATIO 3,000 ML IRRIGATION ONE (10:23)
[2023-11-29] MEDS: ROPIVACAINE 1,100 MG, SODIUM CHLORIDE 0.9% 500 ML 330 ML, EMPTY PAIN BALL 1 EACH MISCELLANE PRN (12:10)
--- NOTE | 2023-11-29 12:16 | XR ---
EXAMINATION TYPE: XR knee limited RT DATE OF EXAM: 11/29/2023 COMPARISON: NONE TECHNIQUE: Two views submitted HISTORY: Post op FINDINGS: There is a prosthetic knee in near anatomic alignment. There is soft tissue edema and soft tissue e mphysema. Atherosclerotic changes. Diffuse demineralization. IMPRESSION: 1. Postoperative change.
--- NOTE | 2023-11-29 12:19 | XR ---
EXAMINATION TYPE: XR chest 1V portable DATE OF EXAM: 11/29/2023 12:15 PM CLINICAL INDICATION:Female, 77 years old with history of cough; [facility] COMPARISON: Chest radiographs from 11/19/2022. TECHNIQUE: XR chest 1V portable Frontal view of the chest. FINDINGS: Lungs/Pleura: There is no evidence of pleural effusion, focal consolidation, or pneumothorax. Pulmonary vascularity: Unremarkable. Heart/mediastinum: Cardiomediastinal silhouette is unremarkable. Musculoskeletal: No acute osseous pathology. IMPRESSION: No acute cardiopulmonary disease/process.
--- NOTE | 2023-11-29 14:20 | P.ANPRN ---
Procedure Note - Anesthesia - Nerve Block Performed Right Adductor Canal Infusion Time Out Performed: Yes (0910) Date of Procedure: 11/29/23 Procedure Start Time: 09:11 Procedure Stop Time: 09:15 Location of Patient: PreOp Indication: Acute Post-Operative Pain, Requested by Surgeon Specifically requested for management of pain by DrJenny: Viral Santiago Sedation Type: Sedate with meaningful contact maintained Preparation: Sterile Prep, Sterile Dressing Position: Supine Catheter Depth at Skin (cm): 7 Catheter: Indwelling Needle Types: Pajunk Needle Gauge: 21 Ultrasound used to visualize needle placement: Yes Ultrasound used to observe medication spread: Yes Injectate: 0.5% Ropivacaine (see comment for volume) (15cc +10cc nacl pf) Blood Aspirated: No Pain Paresthesia on Injection Noted: No Resistance on Injection: Normal Image Stored and Saved: Yes Events: Uneventful and Well Tolerated
--- NOTE | 2023-11-29 14:22 | P.ANPRN ---
Procedure Note - Anesthesia - Nerve Block Performed Right iPack Single Time Out Performed: Yes (0910) Date of Procedure: 11/29/23 Procedure Start Time: 09:16 Procedure Stop Time: 09:18 Location of Patient: PreOp Indication: Acute Post-Operative Pain, Requested by Surgeon Specifically requested for management of pain by DrJenny: Viral Santiago Sedation Type: Sedate with meaningful contact maintained Preparation: Sterile Prep Position: Supine Catheter: None Needle Types: Pajunk Needle Gauge: 21 Ultrasound used to visualize needle placement: Yes Ultrasound used to observe medication spread: Yes Injectate: 0.5% Ropivacaine (see comment for volume) (15cc+10cc nacl pf) Blood Aspirated: No Pain Paresthesia on Injection Noted: No Resistance on Injection: Normal Image Stored and Saved: Yes Events: Uneventful and Well Tolerated
[2023-11-29] MEDS: LACTATED RINGERS 1,000 ML IV SCH (14:29)
[2023-11-29] MEDS: HYDROmorphone 0.5 MG/0.5 ML SYRINGE IVP PRN (15:16)
--- NOTE | 2023-11-29 18:55 | OP ---
OPERATIVE REPORT DATE OF SERVICE : 11/29/2023 SEED YEAST OPERATOR: HECTOR Arambula. PREOPERATIVE DIAGNOSIS: Right knee osteoarthrosis. POSTOPERATIVE DIAGNOSIS: Right knee osteoarthrosis. OPERATION: Right total knee arthroplasty. ANESTHESIA: Spinal with sedation. ESTIMATED BLOOD LOSS: 100 mL. TOURNIQUET TIME: 46 minutes at 250 mmHg. COMPLICATIONS: None apparent. DRAINS: None. DISPOSITION: Postanesthesia care unit. INDICATIONS: Olivia is a very pleasant 77-year-old female with longstanding history of right knee pain. History and physical examination are consistent with advanced right knee osteoarthrosis. She has been through significant nonoperative management up to this point. Further treatment options were discussed, and she decided to go forward with the right total knee arthroplasty. Risks of procedure were discussed with her in detail. These risks included, but were not limited to risk of infection, nerve damage, bleeding, pain, and a small risk of deep vein thrombosis, which could lead to fatal pulmonary embolism. There is also small risk of loosening of the implant, which could require revision operation. The patient understands these risks. All of her questions with regard to the procedure were answered to her satisfaction. Appropriate informed consent was obtained. DESCRIPTION OF THE PROCEDURE: The patient was identified in preoperative holding area. Surgical site was marked by both patient and myself. She was given 2 g of Ancef IV for prophylactic purposes. She was then transported to the operative suite. She was placed supine on the operating room table. A spinal anesthetic was then administered and dosed per the anesthesia department without apparent complication. Examination under anesthesia was then performed. The patient was 2 to 3 degrees shy of full extension. She had 100 degrees of flexion and the medial collateral ligament, lateral ligament, posterior cruciate ligaments were stable. Tourniquet was then placed high on the right upper thigh well-padded in preparation for surgery. The patient's right lower extremity was then prepped and draped in usual sterile fashion. Standard surgical pause was undertaken to ensure that we were operating the correct site and that appropriate preoperative antibiotics were given. All staff were in agreement and we proceeded. The outlines of the patella were marked with surgical pen. A planned 12 cm vertical incision centered over the patella was marked with a surgical pen. Leg was then exsanguinated with an Esmarch dressing. The knee was then flexed and tourniquet was inflated to 250 mmHg. The total tourniquet time for the procedure was 46 minutes. Incision was then made with a 10-blade scalpel. Dissection was carried down sharply overlying the fascia. Great care was taken to minimize the skin flaps. The knee was then exposed using a standard medial parapatellar approach. A small cuff of quadriceps tendon was then left for suturing. She was in a bit of valgus preoperatively. A minimal medial release was made. The only enough was done as to place the medial retractors. The medial meniscus was then excised as well. The lateral meniscus was also released anteriorly. The leg was then externally rotated. The patella was everted. The knee was flexed. Retractors were then placed to protect the collateral ligaments. I then proceeded to remove the infrapatellar fat pad. This was excised sharply tangentially with fibers of the patellar tendon. I then proceeded to remove the peripheral osteophytes. This was done with a rongeur. I then proceeded with the distal femoral resection. She did have near full extension. A planned 9 mm resection was then done. The femoral canal was then entered in the midline of the femur approximately 10 mm anterior to the origin of the posterior cruciate ligament. The reynaldo was then advanced down the center of the femur and placed intramedullary. Based on the preoperative radiographs, the angle between the anatomic and mechanical axis of the femur was approximately 4 to 5 degrees. The valgus angle of the distal femoral cutting guide was then set at 4 degrees for the right knee. Distal femoral cutting guide was then advanced over the intramedullary reynaldo. This was seated firmly against the femur. As mentioned, I planned to take 9 mm off the distal femur. The cutting block was then secured onto the femur with pins. The jig was then removed. The distal cut was made through the slot of the block. The pins were removed and the distal femoral cutting block was removed. The accuracy of the distal femoral cuts was checked with 2 flat bars. I then proceeded with femoral sizing. Posterior referencing sizing guide was held firmly against the resected distal surface of the femur. The posterior condyles were resting on the posterior plane of the guide. The sizing stylus was then placed on the anterior femur. The size was measured as a size 5. I then assessed for femoral rotation. The plan for 3 degrees of external rotation. Three degrees of external rotation was placed into the jig. These holes were then marked. I then confirmed the rotation by 3 separate methods. This was done using epicondylar axis as well as Whitesides line and posterior referencing. It was deemed that the external rotation was proper. I then went forward with placement of the femoral cutting block. This was placed over the previously placed pin holes. The [place] wing was then placed on the anterior slots to ensure that we would not notch the anterior femur with the anterior femoral cut. I then proceeded with the anterior femoral cut. This was flushed with the anterior cortex of the femur. Posterior cuts were then made, followed by the anterior chamfer cut, then the posterior chamfer cut. The cutting block was then removed. Throughout the resection, the collateral ligaments were protected with retractors. I then placed a trial size 5 femur. It was slightly wide, but the narrow fit very nicely and fit flush with the distal end of the femur. The drill hole was then made. I then proceeded with the tibial cut. I planned for cruciate-retaining knee. The guide was placed and set for varus and valgus and for slope. The height was set approximately 2 mm resection from the lateral tibial plateau, which was the lower side. I was happy with the alignment and the amount of resection. The cutting block was then pinned to the proximal tibia. The alignment reynaldo was removed and the proximal tibia was resected with a reciprocating saw. Again, this was done with retractors protecting the collateral ligaments as well as the posterior cruciate ligament. I then proceeded to evaluate the flexion and extension gaps. A 10 mm block was then placed. The flexion and extension gaps were equal. I then proceeded with resection of posterior osteophytes. She had very minimal posterior osteophytes. This was done using a curved osteotome. This resected the posterior osteophytes, and posterior capsular stripping was done off the posterior aspect of the femur at this time. The osteophytes were then removed. I then proceeded with resection of the patella. The thickness of patella was measured using the caliper. The thickness was 22 mm. The thickness of the anticipated patellar dome was taken into account. Resection was then performed and confirmed to be equal in 4 quadrants using a caliper. Approximately, 14 mm of bone remained after resection. A 29 x 8 standard patellar trial was then placed. The holes were drilled and the trial was then placed. I then proceeded with sizing tibial plate. A size C tibial plate fit very nicely. I then placed a trial femur, the tibial tray, and the patellar button. A 10 mm trial tibial insert was also placed. The components fit very nicely. She had full extension and flexion. The extension and flexion gaps were equal and stable to both varus and valgus stress. The patella tracked appropriately. The tibial tray rotation was then marked with a Bovie. This was externally rotated properly. I then proceeded with tibial preparation. I first drilled the femoral holes and removed the femoral component. The tibial tray was then set for proper external rotation as well as medial lateral placement onto the tibia. It was then pinned into place. I then proceeded with punching the keel. I then proceeded with cementing of all our components. The knee was thoroughly irrigated with sterile saline solution via pulse lavage. The lateral genicular artery was identified and cauterized. All blood was removed from the bone of the tibia, femur, and patella with pulsed lavage. I then proceeded with cementing. Two packs of antibiotic bone cement prepared on the back table by certified surgical first assistant. I then proceeded with cementing the tibia first. The cement was impacted into the keel as well as deeply seated into the bone. A second coat of cement was then placed. The tibia was then impacted into place. Excess cement was removed with [place]'s and Joker's. I then proceeded with cementing of the femoral component. Femoral component was also cemented using standard technique. Excess cement was removed. A 10 mm trial insert was then also placed in the knee. It was brought into full extension with a constant axial load placed until the cement had hardened. The patellar component was then cemented. This was held firmly with compressive device until the cement had dried. When the cement had dried, the knee was taken out of extension. All excess cement was removed from around the prosthesis. I then trialed the 10 mm insert. Flexion and extension gaps were appropriate. The knee was stable. It came into full extension. I decided to go forward with the 10 mm Medial Congruent cross-linked cruciate-retaining tibial insert. Polyethylene was then placed on the tibial tray and locked into place. The knee was then reduced. The knee was again further irrigated with sterile saline solution and antibiotic added. The tourniquet was then deflated. Total tourniquet time for the procedure was 46 minutes at 250 mmHg. Final components were Kareem Persona size 5 narrow cruciate-retaining femoral component, size C tibial tray, a 10 mm Medial Congruent cruciate-retaining polyethylene insert, and a 29 x 8 mm patella. I then proceeded with closure. Again, the knee was thoroughly irrigated. The quadriceps tendon and the medial retinaculum were reapproximated with #2 Ethibond suture. The extensor mechanism was then closed with a running #2 Quill suture. Subcutaneous tissues were closed with 2-0 Vicryl interrupted suture. The skin was closed with a running 3-0 Quill suture. Dermabond was applied to the incision. Sterile compressive dressing was then applied. All sponge and needle counts were deemed correct prior to closure. The patient tolerated the procedure without apparent complication. She was transferred to recovery room in stable condition. MMODL / IJN: [id number] /
[2023-11-29] MEDS: ASPIRIN 81 MG PO SCH (21:21)
[2023-11-29] MEDS: SENNOSIDES-DOCUSATE SODIUM 1 EACH TAB PO SCH (21:21)
[2023-11-29] MEDS: HYDROcodone/APAP 7.5-325MG 1 EACH TAB PO PRN (22:41)
--- NOTE | 2023-11-30 03:12 | P.CONS ---
History of Present Illness - Reason for Consult Consult date: 11/29/23 Postoperative medical management - Chief Complaint Right knee replacement - History of Present Illness 77-year-old female with hypertension Patient coming in for scheduled right total knee arthroplasty secondary to severe arthritis resulting in disabling pain affecting ADLs. Patient tolerated procedure well denies any immediate postoperative observed complications patient denies any chest pain nausea vomiting abdominal pain denies any fevers chills denies any trouble breathing. Patient reports that she ambulated with assistance use the bathroom and tolerated p.o. intake Patient denies tobacco smoking illicit drugs or heavy alcohol review of systems Pertinent positives as noted in HPI. All other systems were reviewed and are negative on exam Constitutional: No acute distress, conversant, pleasant Eyes: Anicteric sclerae, moist conjunctiva, Pupils equal round reactive to light ENMT: NC/AT Oropharynx clear, no erythema, or exudates Lungs: Clear to auscultation Clear to percussion Normal respiratory effort, no accessory muscle use Cardiovascular: Heart regular in rate and rhythm, No murmurs, gallops, or rubs No peripheral edema Abdominal: Soft Nontender, no guarding, rebound or rigidity Abdomen moving with respiration Normoactive bowel sounds Extremities: No digital cyanosis No clubbing Pedal pulses intact and symmetrical Radial pulses intact and symmetrical No calf tenderness Psychiatric: Alert and oriented to person, place and time Appropriate affect fair judgement Neuro Muscles Strength 5/5 in all 4 extremities with limitations of exam over the right lower extremity secondary to postop Sensation to light touch grossly present throughout Cranial nerves II-XII grossly intact Past Medical History Past Medical History: Hyperlipidemia, Hypertension, Osteoarthritis (OA) History of Any Multi-Drug Resistant Organisms: None Reported Past Surgical History: Tubal Ligation Additional Past Surgical History / Comment(s): Rt. CTR, radiofrequency ablation of nerves (Rt.neck),sherwin bone spurs to feet, UTI, Lt.TKA 04/2023, Rt. TKA 11/29/2023 Past Anesthesia/Blood Transfusion Reactions: No Reported Reaction Additional Past Anesthesia/Blood Transfusion Reaction / Comm: no blood tx hx Past Psychological History: No Psychological Hx Reported Smoking Status: Never smoker Past Alcohol Use History: Rare Past Drug Use History: None Reported - Past Family History Father Family Medical History: Cancer Additional Family Medical History / Comment(s): lung Medications and Allergies Home Medications Medication Instructions Recorded Confirmed Type Acetaminophen [Tylenol Extra 1,000 mg PO Q6H PRN 09/01/19 11/29/23 History Strength] Celecoxib [CeleBREX] 100 mg PO QAM 09/01/19 11/29/23 History Glucosam/Seng-Msm1/C/Garrett/Bosw 2 tab PO QAM 09/01/19 11/29/23 History [Tafmpgvjsix-Jgbtycjxxvy-LHJ Tb] Lactobacillus Acidophilus 1 tab PO DAILY 09/01/19 11/29/23 History [Acidophilus] Loratadine [Claritin] 10 mg PO DAILY 09/01/19 11/29/23 History Multivitamins, Thera [Multivitamin 1 tab PO DAILY 09/01/19 11/29/23 History (formulary)] Omeprazole 20 mg PO DAILY 09/01/19 11/29/23 History Calcium Carbonate [Tums] 1,000 mg PO HS 11/19/22 11/29/23 History Cholecalciferol [Vitamin D3 (25 25 mcg PO QAM 11/19/22 11/29/23 History Mcg = 1000 Iu)] Cranberry Fruit Extract [Cranberry] 400 mg PO DAILY 11/19/22 11/29/23 History Pravastatin Sodium [Pravachol] 40 mg PO AC-SUPPER 11/19/22 11/29/23 History Acetaminophen/Diphenhydramine 1 tab PO HS 11/23/23 11/29/23 History [Tylenol PM 500-25mg] Losartan [Cozaar] 50 mg PO QAM 11/23/23 11/29/23 History Magnesium 200 mg PO BID 11/23/23 11/29/23 History atenoloL 100 mg PO HS 11/23/23 11/29/23 History hydrALAZINE HCL 25 mg PO TID 11/23/23 11/29/23 History Allergies Allergy/AdvReac Type Severity Reaction Status Date / Time erythromycin base Allergy Unknown Verified 11/29/23 08:32 Penicillins Allergy Unknown Verified 11/29/23 08:32 Childhood Physical Exam Vitals: Vital Signs Temp Pulse Pulse Pulse Resp BP BP 11/30/23 02:00 97.7 F 73 16 105/67 11/29/23 20:00 97.8 F 75 18 120/70 11/29/23 14:00 97.9 F 75 18 148/73 03/21/24 13:40 70 16 133/59 03/21/24 13:25 74 16 141/64 11/29/23 13:10 76 16 141/61 11/29/23 12:55 68 16 132/63 11/29/23 12:40 65 16 135/70 11/29/23 12:25 66 16 132/61 11/29/23 12:10 62 16 141/67 11/29/23 11:55 62 16 130/62 11/29/23 11:43 97.6 F 63 14 123/67 11/29/23 09:15 80 16 144/67 11/29/23 09:00 97.0 F L 83 16 164/74 Pulse Ox 11/30/23 02:00 96 11/29/23 20:00 96 11/29/23 14:00 97 11/29/23 13:40 95 11/29/23 13:25 96 11/29/23 13:10 95 11/29/23 12:55 98 11/29/23 12:40 97 11/29/23 12:25 98 11/29/23 12:10 100 11/29/23 11:55 100 11/29/23 11:43 100 11/29/23 09:15 98 11/29/23 09:00 98 Intake and Output 11/29/23 11/29/23 11/30/23 14:59 22:59 06:59 Intake Total 551 0 Output Total 100 Balance 451 0 Intake: IV 551 Oral 0 Output: Estimated Blood Loss 100 Other: Voiding Method Toilet # Voids 1 Weight 74.4 kg Assessment and Plan Assessment: Hypertension controlled resume home medications in the morning Hydralazine, atenolol and losartan GERD Continue with Protonix 40 mg p.o. daily Hyperlipidemia Continue atorvastatin 40 mg p.o. nightly Right total knee arthroplasty postoperative day 0 Pain control and DVT prophylaxis per orthopedic team Patient stable from medical standpoint Check CBC and BMP in the morning Thank you for this consultation
[2023-11-30] MEDS: PANTOPRAZOLE 40 MG TABLET PO SCH (06:35)
[2023-11-30] MEDS: LOSARTAN 50 MG TAB PO SCH (08:14)
[2023-11-30] MEDS: hydrALAZINE HCL 25 MG TAB PO SCH (08:15)
[2023-11-30 08:17] LABS: Basophils % (A) 0 %; Eosinophils % (A) 0 %; HCT 34.5 % (34.0-46.0); HGB 11.1 gm/dL (11.4-16.0); Lymphocytes # (A) 1.4 k/uL (1.0-4.8); Lymphocytes % (A) 19 %; MCV 93.7 fL (80.0-100.0); Mean Platelet Volume 9.5; Monocytes # (A) 0.5 k/uL (0-1.0); Monocytes % (A) 6 %; Neutrophils # (A) 5.4 k/uL (1.3-7.7); Neutrophils % (A) 73 %; Platelet Count 193 k/uL (150-450); RBC 3.68 m/uL (3.80-5.40); RDW 13.2 % (11.5-15.5); WBC 7.4 k/uL (3.8-10.6)
[2023-11-30 08:19] VITALS: BP 155/77; PULSE 71; RESP 18; TEMP 98.1
--- NOTE | 2023-11-30 08:40 | P.PN ---
Progress Note - Text Progress Note Date: 11/30/23 (8435) Anesthesiology Postop day 1 status post total knee arthroplasty with adductor canal catheter. Patient doing well. VAS 6 out of 10rest of all. Gross strength intact in lower extremity. Afebrile. Denies alterations in sensorium. Catheter site intact. Heart regular rate Lungs nonlabored Abdomen nondistended Assessment: Postop day 1 status post total knee arthroplasty with adductor canal catheter Plan: 1.All questions answered. Maintain catheter 2 more days with patient removal at home. Instructions to be given at discharge. 2.This note was dictated using [employer] software. Please be advised there is a potential for misspellings or errors in mechanic field service.
[2023-11-30] MEDS: MULTIVITAMINS, THERA 1 EACH TAB PO SCH (10:44)
--- NOTE | 2023-11-30 10:55 | P.PN ---
Subjective Progress Note Date: 11/30/23 Patient is a-year-old female with hypertension, dyslipidemia, and osteoarthritis who presented for elective right total knee arthroplasty. Patient seen and examined at bedside. Doing well. Pain is well-controlled. No chest pain, shortness of breath, nausea, or lightheadedness. Already worked with physical therapy who did the stairs. Anxious to be discharged. Vital signs reviewed General: Nontoxic, no distress, appears at stated age Cardiovascular: S1S2 reg, no murmur Lungs: CTA bilateral, no rhonchi, no rales, no accessory muscle use Abdominal: Soft, nontender to palpation, no guarding Ext: No gross muscle atrophy, trace edema b/l lower extremities, no contractures Neuro: CN II-XI grossly intact, no focal neuro deficits Psych: Alert, oriented, appropriate affect Assessment/Plan: 77-year-old female status post right total knee arthroplasty Hypertension -Hydralazine 25 mg 3 times daily, Cozaar 50 mg daily, atenolol 100 mg at night -Follow blood pressures Acute blood loss anemia -Should self resolve -No indication for ferrous sulfate GERD -omeprazole 20 mg oral daily Dyslipidemia -Pravachol 40 mg at night Patient is medically optimized for discharge at the discretion of orthopedic surgery. Home meds have been addressed on the discharge medication reconciliation. She should also follow-up with Dr. Richardson in 1 week. Data Review: Labs reviewed from this morning include CBC which is remarkable for hemoglobin of 11.1 Thank you for allowing us to participate in the care of this pleasant patient. Do not hesitate to contact us with questions. Someone can be reached from the [facility] hospitalist group all hours of the day at [phone] or via [employer]. This dictation was prepared using [employer] voice recognition software. Though every attempt is made to correct errors during dictation some may still exist. Objective - Vital Signs Vital signs: Vital Signs Temp 98.1 F 11/30/23 06:58 Pulse 71 11/30/23 06:58 Resp 18 11/30/23 06:58 BP 155/77 11/30/23 06:58 Pulse Ox 96 11/30/23 06:58 FiO2 Intake & Output 11/29/23 11/30/23 11/30/23 18:59 06:59 18:59 Intake Total 551 0 Output Total 100 Balance 451 0 Weight 74.4 kg Intake: IV 551 Oral 0 Output: Estimated Blood Loss 100 Other: Voiding Method Toilet # Voids 2 2 - Labs CBC & Chem 7: 11/30/23 07:03 Labs: Abnormal Lab Results - Last 24 Hours (Table) 11/30/23 Range/Units 07:03 RBC 3.68 L (3.80-5.40) m/uL Hgb 11.1 L (11.4-16.0) gm/dL
--- NOTE | 2023-11-30 14:26 | P.DS ---
Providers Expected date of discharge: 11/30/23 Attending physician: Viral Santiago Consults: 11/29/23 09:27 Consult Physician Routine Consulting Provider: Doris Branch Consult Reason/Comments: post op medical management Do you want consulting provider notified?: Yes Primary care physician: Philip Richardson - Discharge Diagnosis(es) (1) Status post total right knee replacement Patient was admitted to the OR on 11/29/23 to undergo a right total knee arthroplasty. She had failed conservative measures as an outpatient and desired to proceed with elective surgery after given informed consent. She underwent the above procedure which he tolerated well without complication. Postoperative hospital course has remained without complication. On day of discharge she is afebrile, vital signs stable, labs within acceptable ranges, tolerating by mouth meds and diet, voiding without difficulty, positive flatus, denies abdominal pain or calf pain, pain is controlled on oral pain medication and has no new complaints. Wound is benign, neurovascular status is intact, calf is soft and nontender, abdomen soft and nontender. Review of systems is negative for numbness, tingling, fever, chills, chest pain, shortness of breath, nausea, vomiting, dizziness, headaches, slurred speech or other. Current Visit: Yes Status: Acute Priority: Medium Procedures: Right TSA Patient Condition at Discharge: Good Plan - Discharge Summary Discharge Rx Participant: Yes New Discharge Prescriptions: New Docusate [Colace] 100 mg PO BID #60 capsule HYDROcodone/APAP 7.5-325MG [Mobile 7.5-325] 1 - 2 each PO Q6HR PRN #42 tab PRN Reason: Pain Aspirin [Adult Low Dose Aspirin EC] 81 mg PO BID #60 tab Ondansetron [Zofran] 4 mg PO Q8HR PRN #21 tab PRN Reason: Nausea Continue Lactobacillus Acidophilus [Acidophilus] 1 tab PO DAILY Omeprazole 20 mg PO DAILY Multivitamins, Thera [Multivitamin (formulary)] 1 tab PO DAILY Loratadine [Claritin] 10 mg PO DAILY Calcium Carbonate [Tums] 1,000 mg PO HS Cholecalciferol [Vitamin D3 (25 Mcg = 1000 Iu)] 25 mcg PO QAM Pravastatin Sodium [Pravachol] 40 mg PO AC-SUPPER Cranberry Fruit Extract [Cranberry] 400 mg PO DAILY hydrALAZINE HCL 25 mg PO TID Losartan [Cozaar] 50 mg PO QAM Magnesium 200 mg PO BID atenoloL 100 mg PO HS No Action Celecoxib [CeleBREX] 100 mg PO QAM Glucosam/Seng-Msm1/C/Garrett/Bosw [Qrbauwtckql-Yrqnmprgmok-DGP Tb] 2 tab PO QAM Acetaminophen [Tylenol Extra Strength] 1,000 mg PO Q6H PRN PRN Reason: Pain Acetaminophen/Diphenhydramine [Tylenol PM 500-25mg] 1 tab PO HS Discharge Medication List Acetaminophen [Tylenol Extra Strength] 1,000 mg PO Q6H PRN 09/01/19 [History] Celecoxib [CeleBREX] 100 mg PO QAM 09/01/19 [History] Glucosam/Seng-Msm1/C/Garrett/Bosw [Shuocehudkr-Kwpengciomi-ICL Tb] 2 tab PO QAM 09/01/19 [History] Lactobacillus Acidophilus [Acidophilus] 1 tab PO DAILY 09/01/19 [History] Loratadine [Claritin] 10 mg PO DAILY 09/01/19 [History] Multivitamins, Thera [Multivitamin (formulary)] 1 tab PO DAILY 09/01/19 [History] Omeprazole 20 mg PO DAILY 09/01/19 [History] Calcium Carbonate [Tums] 1,000 mg PO HS 11/19/22 [History] Cholecalciferol [Vitamin D3 (25 Mcg = 1000 Iu)] 25 mcg PO QAM 11/19/22 [History] Cranberry Fruit Extract [Cranberry] 400 mg PO DAILY 11/19/22 [History] Pravastatin Sodium [Pravachol] 40 mg PO AC-SUPPER 11/19/22 [History] Acetaminophen/Diphenhydramine [Tylenol PM 500-25mg] 1 tab PO HS 11/23/23 [History] Losartan [Cozaar] 50 mg PO QAM 11/23/23 [History] Magnesium 200 mg PO BID 11/23/23 [History] atenoloL 100 mg PO HS 11/23/23 [History] hydrALAZINE HCL 25 mg PO TID 11/23/23 [History] Aspirin [Adult Low Dose Aspirin EC] 81 mg PO BID #60 tab 11/30/23 [Rx] Docusate [Colace] 100 mg PO BID #60 capsule 11/30/23 [Rx] HYDROcodone/APAP 7.5-325MG [Mobile 7.5-325] 1 - 2 each PO Q6HR PRN #42 tab 11/30/23 [Rx] Ondansetron [Zofran] 4 mg PO Q8HR PRN #21 tab 11/30/23 [Rx] Follow up Appointment(s)/Referral(s): Philip Richardson DO [Primary Care Provider] - 12/04/23 3:20 pm Viral Santiago MD [STAFF PHYSICIAN] - 12/12/23 11:00 am Activity/Diet/Wound Care/Special Instructions: WBAT take meds as directed F/U in office May shower in 3 days if no bleeding Discharge Disposition: HOME WITH HOME HEALTH SERVICES
[2023-11-30] MEDS ORDERED: PRAVASTATIN SODIUM 40 MG TAB PO SCH (17:30)
[2023-11-30] MEDS ORDERED: atenoloL 50 MG TAB PO SCH (21:00)
== END 2023-11-30 14:58 | disposition home health service (06) ==
LOC: OR 07:49 → 4SSUR 11:36 → OR 11-30 14:58
PROVIDERS: ATTEND Orthopaedic Surgery Sports Medicine
DX: M17.11 Unilateral primary osteoarthritis, right knee (principal); M25.761 Osteophyte, right knee; G89.18 Other acute postprocedural pain; I10 Essential (primary) hypertension; F10.90 Alcohol use, unspecified, uncomplicated; E78.5 Hyperlipidemia, unspecified; Z88.0 Allergy status to penicillin; Z82.49 Family history of ischemic heart disease and other diseases of the circulatory system; Z79.899 Other long term (current) drug therapy; Z96.652 Presence of left artificial knee joint
CPT/HCPCS: 97161; 64999; 64448; 85025; 73560; 71045; 27447; C1776; C1713; C1751; J2250; J1100; J0690 ×3; J2405; J3010; J2795; J1170